=== PATIENT | female | born 1980 | race Caucasian/White ===

== ENCOUNTER 2019-05-22 16:16 | Emergency (ER) | payer OTHER, SELFPAY ==
[2019-05-22] MEDS: SODIUM CHLORIDE 0.9% IV 1,000 ML 1000 ML (16:38)
[2019-05-22 16:43] VITALS: BP 117/76; PULSE 84; RESP 19; TEMP 36.8; O2SAT 97
--- NOTE | 2019-05-22 16:43 | ED.GENADULT ---
HPI - General Adult General Chief complaint: Nausea/Vomiting/Diarrhea Stated complaint: throwing up, diarrhea History of Present Illness HPI narrative: Perri presented to the ED with 3 days of nausea, vomiting, diarrhea and fevers. She 1st had an upset stomach 3 days ago and has had several episodes of nonbilious nonbloody vomiting since. Two days ago she started having watery diarrhea. Two days ago she had a fever of up to 103. Her highest fever today was 101. This has also been accompanied by rhinorrhea and a cough. She denies any chronic medical conditions. no hematochezia, melena, or hematemesis. No chest pain or shortness of breath. Related Data Home Medications Medication Instructions Recorded Confirmed choriogonadotropin francoise,humrec 250 mcg SUBCUT ONCE 05/22/19 05/22/19 [Ovidrel] clomiphene citrate 100 mg PO DAILY 05/22/19 05/22/19 furosemide 20 mg PO DAILY 05/22/19 05/22/19 montelukast [Singulair] 10 mg PO DAILY 05/22/19 05/22/19 Allergies Allergy/AdvReac Type Severity Reaction Status Date / Time No Known Allergies Allergy Verified 05/22/19 17:05 Review of Systems Constitutional: Constitutional: Reports chills, Reports fatigue and Reports fever(s) Eyes: Eyes: Reports as per HPI and Reports no additional eye complaints ENT: Reports system reviewed and no additional complaints, except as documented Cardiovascular: Cardiovascular: Reports no additional cardiovascular complaints Respiratory: Respiratory: Reports cough, Denies dyspnea and Denies wheezing Gastrointestinal: Gastrointestinal: Reports as per HPI Genitourinary: Genitourinary: Reports no additional female genitourinary complaints Musculoskeletal: Musculoskeletal: Reports no additional musculoskeletal complaints Integumentary/Breasts: Skin/Breast: Reports system reviewed and no additional complaints, except as docu Neurologic: Reports system reviewed and no additional complaints, except as documented Psychiatric: Psychiatric: Reports no additional psychiatric complaints Exam Const: General: no acute distress and alert Orientation/consciousness: patient oriented x3 Limitations: No altered mental status HENMT: Other: Normocephalic, atraumatic. dry mucous membranes Eyes: Conjunctivae: conjunctivae normal Pupils: Equal, round and reactive pupils present Neck: Neck: normal visual inspection Chest: Chest palpation & inspection: normal inspection of the chest Resp: Effort & Inspection: normal respiratory effort, not labored, no retractions and not tachypneic Auscultation: clear to auscultation bilaterally Cardio: Rate: regular rate Rhythm: regular rhythm Heart sounds: no murmurs GI: GI Palp: Yes Soft to palpation and No Tenderness to palpation present (GI) : General: Yes no CVA tenderness Skin: General skin exam: normal color Rashes: no rashes Neuro: General: patient oriented x3 and moves all extremities Extrem: General: normal to inspection Psych: Mental Status: mental status grossly normal Course Course Emergency Course: Elle was seen and evaluated. ordered a L fluids and labs As well as for at mg of IV Zofran. Labs were significant for a white blood cell count of 18 mildly elevated creatinine of 1.04 and potassium is 3.0. She was given a 2nd L and given 40 mEq of potassium p.o. After this she was able to tolerate some fluids without vomiting. She was given return precautions and discharged. Vital Signs Vital signs: Vital Signs Temperature 36.8 C 05/22/19 16:43 Pulse Rate 84 05/22/19 16:43 Respiratory Rate 19 05/22/19 16:43 Blood Pressure 117/76 05/22/19 16:43 Pulse Oximetry 97 05/22/19 16:43 Temperature 36.8 C 05/22/19 16:43 Pulse Rate 84 05/22/19 16:43 Respiratory Rate 19 05/22/19 16:43 Blood Pressure 117/76 05/22/19 16:43 Pulse Oximetry 97 05/22/19 16:43 Medical Decision Making Vital Signs Vital Signs: Vital Signs Temperature 36.8 C
[2019-05-22 16:49] LABS: Basophils Absolute Auto 0.02 K/mm3 (0.00-0.10); Basophils Percent Auto 0.1 % (0.0-1.0); Eosinophils Absolute Auto 0.04 K/mm3 (0.02-0.50); Eosinophils Percent Auto 0.2 % (1.0-6.0); Hematocrit 40.3 % (35.0-49.0); Hemoglobin 13.6 g/dL (12.0-15.0); Immature Granulocyte Percent A 0.5 % (0.0-0.0); Lymphocytes Absolute Auto 1.63 K/mm3 (1.10-4.50); Lymphocytes Percent Auto 8.9 % (18.0-42.0); Mean Corpuscular HGB Conc 33.7 g/dL (32.0-36.0); Mean Corpuscular Hemoglobin 29.8 pg (27.0-31.0); Mean Corpuscular Volume 88.4 fL (78.0-102.0); Mean Platelet Volume 10.3 fl (9.2-11.8); Monocytes Percent Auto 6.5 % (2.0-11.0); Neutrophils Absolute Auto 15.4 K/mm3 (1.7-7.2); Neutrophils Percent Auto 83.8 % (50.0-70.0); Platelet Count Result 245 K/mm3 (150-420); Red Blood Count 4.56 M/mm3 (4.20-5.40); White Blood Count 18.3 K/mm3 (4.8-10.8)
[2019-05-22 16:54] LABS: Appearance Urine Sl Cloudy (Clear); Bilirubin Urine 1+ (Negative); Color Urine Yellow (Yellow); Glucose Urine UA Negative (Negative); Ketones Urine 1+ (Negative); Leukocyte Esterase Ur Trace LEU/UL (Negative); Nitrate Urine Negative (Negative); Protein Urine 1+ (Negative); Specific Grav Ur 1.015 (1.010-1.020)
[2019-05-22 17:00] LABS: Add Urine Microscopic? YES; Bacteria Urine 3+ /hpf; Blood Urine Trace-Intact (Negative); RBC Urine 0-2 /hpf (0-2); Squamous Epithelial Cell Urine Many /hpf (Few); WBC Urine 0-3 /hpf (0-3)
[2019-05-22] MEDS: ONDANSETRON INJ 4 MG/2 ML VIAL IV PUSH (17:00)
[2019-05-22 17:03] LABS: Pregnancy On Board Control Positive; Specific Gravity Ur 1.015 (1.010-1.035); Urine Pregnancy Test Negative
[2019-05-22 17:06] LABS: Alanine Aminotransferase 20 U/L (14-59); Albumin Level 3.5 g/dL (3.4-5.0); Alkaline Phosphatase 48 U/L (46-116); Aspartate Amino Transferase 13 U/L (15-37); Bilirubin,Total 0.3 mg/dL (0.00-1.00); Blood Urea Nitrogen 14 mg/dL (7-18); Carbon Dioxide 30 mmol/L (21-32); Chloride 99 mmol/L (98-108); Estimated Glomerular Filt Rate 60; Glucose 135 mg/dL (70-99); Osmolality Calculated 286 mOsm/kg (285-295); Sodium 137 mmol/L (136-145)
[2019-05-22 17:08] LABS: Lipase 98 U/L (73-393)
[2019-05-22 17:13] LABS: Influenza Control Valid (Valid)
[2019-05-22] MEDS: POTASSIUM CHLORIDE 20 MEQ PACKET (FOR LIQUID) 40 MEQ PO (17:27)
[2019-05-22] MEDS: SODIUM CHLORIDE 0.9% IV 500 ML 999 ML IV CONT (17:29)
[2019-05-22 18:14] VITALS: BP 150/86; O2SAT 99
== END 2019-05-22 18:20 | disposition home or self-care (01) ==
PROVIDERS: Emergency Provider Family Medicine; PCP Family Medicine
DX: K52.9 Noninfective gastroenteritis and colitis, unspecified (principal)
CPT/HCPCS: 36415; 80053; 81001; 81025; 83690; 85025; 87804; 96361; 96374; 99283; 99284; A9270; J2405; J7030; J7040

== ENCOUNTER 2019-10-25 19:02 | Emergency (ER) | payer OTHER, SELFPAY ==
[2019-10-25 19:23] VITALS: BP 107/78; PULSE 89; RESP 18; TEMP 36.2; O2SAT 100
--- NOTE | 2019-10-25 19:36 | ED.GENADULT ---
HPI - General Adult General Chief complaint: Nausea/Vomiting/Diarrhea Stated complaint: weakness,vomiting,fever. Source: patient and family Mode of arrival: ambulatory History of Present Illness HPI narrative: Elle is a 38 at 13 weeks gestation with no reported PMH that presented to the ED with nausea and vomiting. 2 nights ago she had a fish sandwich and started having nausea and vomiting an hour later. She has been having NBNB vomiting about every 45 minute since. She has had limited PO intake and a little diarrhea. She had a fever of 100.4 today with body aches. No CP, SOB, cough, or dysuria. Related Data Home Medications Medication Instructions Recorded Confirmed furosemide 20 mg PO DAILY 05/22/19 10/25/19 montelukast [Singulair] 10 mg PO DAILY 05/22/19 10/25/19 Allergies Allergy/AdvReac Type Severity Reaction Status Date / Time No Known Allergies Allergy Verified 05/24/19 14:08 Review of Systems Constitutional: Constitutional: Reports as per HPI Eyes: Eyes: Reports no additional eye complaints ENT: Reports system reviewed and no additional complaints, except as documented Cardiovascular: Cardiovascular: Reports no additional cardiovascular complaints Respiratory: Respiratory: Reports no additional respiratory complaints Gastrointestinal: Gastrointestinal: Reports as per HPI Genitourinary: Genitourinary: Reports no additional female genitourinary complaints Musculoskeletal: Musculoskeletal: Reports as per HPI Integumentary/Breasts: Skin/Breast: Reports system reviewed and no additional complaints, except as docu Neurologic: Reports system reviewed and no additional complaints, except as documented Psychiatric: Psychiatric: Reports no additional psychiatric complaints Endocrine: Endocrine: Reports no additional endocrine complaints Hematologic/Lymphatic: Hematologic/Lymphatic: Reports no additional hematologic/lymphatic complaints Allergic/Immunologic: Allergic/Immunologic: Reports no additional allergic/immunologic complaints [facility] Social History Social History Gender identity (if verbalized by the patient): Female Exam Const: General: no acute distress; No confusion Orientation/consciousness: patient oriented x3 Limitations: No altered mental status HENMT: Head: normal to inspection Other: dry mucous membranes Eyes: Conjunctivae: conjunctivae normal Pupils: Equal, round and reactive pupils present Neck: Neck: normal visual inspection Chest: Chest palpation & inspection: normal inspection of the chest Resp: Effort & Inspection: normal respiratory effort and not labored Auscultation: clear to auscultation bilaterally Cardio: Rate: tachycardic Rhythm: regular rhythm Heart sounds: no murmurs GI: GI Palp: Yes Soft to palpation, No Tenderness to palpation present (GI), No Guarding due to palpation present (GI) and No Rebound tenderness present Auscultation: normal bowel sounds : General: Yes no CVA tenderness Back/Spine/Pelvis: Back: no CVA tenderness Skin: General skin exam: normal color Rashes: no rashes Neuro: General: patient oriented x3 and moves all extremities Extrem: General: normal to inspection Psych: Mental Status: mental status grossly normal Course Course Emergency Course: Elle was seen and evaluated. Ordered labs as below, 1L NS and promethazine (zofran at home did not help). She was feeling better after these. However, she failed to hold down some juice and vomited again. She was then given benadryl and 500 more ml of normal saline. She again failed a PO challenge after this. Next she was given a dose of zofran IV after a discussion of the possible teratogenicity and she expressed understanding of the risks. After the zofran she was able to hold down some jello. As She could tolerate PO she felt safe to go home and sip on water. Vital Signs Vital signs: Vital Signs Temper
[2019-10-25] MEDS: PROMETHAZINE HCL 25 MG/ML AMPUL 12.5 MG IV PUSH (19:38)
[2019-10-25] MEDS: SODIUM CHLORIDE 0.9% IV 1,000 ML 999 ML IV CONT (19:39)
--- NOTE | 2019-10-25 19:51 | PC.NURSE ---
Pt made aware of need for urine sample, call light provided, pt verbalized understanding.
[2019-10-25 20:17] LABS: Basophils Absolute Auto 0.03 K/mm3 (0.00-0.10); Basophils Percent Auto 0.2 % (0.0-1.0); Hematocrit 39.1 % (35.0-49.0); Immature Granulocyte Absolute 0.11 K/mm3 (0.00-0.00); Immature Granulocyte Percent A 0.7 % (0.0-0.0); Lymphocytes Absolute Auto 1.24 K/mm3 (1.10-4.50); Lymphocytes Percent Auto 7.5 % (18.0-42.0); Mean Corpuscular HGB Conc 33.2 g/dL (32.0-36.0); Mean Corpuscular Hemoglobin 29.5 pg (27.0-31.0); Mean Corpuscular Volume 88.7 fL (78.0-102.0); Mean Platelet Volume 10.7 fl (9.2-11.8); Monocytes Absolute Auto 0.86 K/mm3 (0.10-0.90); Monocytes Percent Auto 5.2 % (2.0-11.0); Neutrophils Absolute Auto 14.2 K/mm3 (1.7-7.2); Neutrophils Percent Auto 86.4 % (50.0-70.0); Platelet Count Result 270 K/mm3 (150-420); Red Blood Count 4.41 M/mm3 (4.20-5.40); Red Cell Distribution Width 14.2 % (11.6-14.4); White Blood Count 16.5 K/mm3 (4.8-10.8)
--- NOTE | 2019-10-25 20:25 | PC.NURSE ---
Pt attempted PO challenge per MD, soon after eating food pt became nauseated and began vomiting. Cool towel provided. MD made aware, awaiting further orders.
[2019-10-25 20:26] LABS: Alanine Aminotransferase 19 U/L (14-59); Albumin Level 3.4 g/dL (3.4-5.0); Alkaline Phosphatase 41 U/L (46-116); Anion Gap 7 mmol/L (8-16); Aspartate Amino Transferase 12 U/L (15-37); Bilirubin,Total 0.4 mg/dL (0.00-1.00); Blood Urea Nitrogen 13 mg/dL (7-18); Calcium 8.9 mg/dL (8.5-10.1); Carbon Dioxide 31 mmol/L (21-32); Chloride 100 mmol/L (98-108); Estimated CRCL calculation 125 ml/min; Estimated Glomerular Filt Rate > 60; Glucose 107 mg/dL (70-99); Lipase 71 U/L (73-393); Osmolality Calculated 286 mOsm/kg (285-295); Potassium 3.2 mmol/L (3.5-5.1); Sodium 138 mmol/L (136-145); Total Protein 7.4 g/dL (6.4-8.2)
[2019-10-25] MEDS: SODIUM CHLORIDE 0.9% IV 500 ML 999 ML IV CONT (20:32)
[2019-10-25] MEDS: diphenhydrAMINE HCl INJ 50 MG/ML VIAL IV PUSH (20:32)
--- NOTE | 2019-10-25 21:16 | PC.NURSE ---
pt ambulated to bathroom with steady gait to provided urine sample, returned to stretcher in NAD. Pt reports sudden onset of nausea and had an episode of emesis. MD made aware, awaiting further orders.
[2019-10-25 21:17] LABS: Appearance Urine Clear (Clear); Bilirubin Urine 1+ (Negative); Color Urine Yellow (Yellow); Glucose Urine UA Negative (Negative); Ketones Urine 3+ (Negative); Leukocyte Esterase Ur Negative (Negative); Nitrate Urine Negative (Negative); Protein Urine 1+ (Negative); pH Urine 7.5 (5.0-8.0)
[2019-10-25 21:21] LABS: Add Urine Microscopic? YES; Bacteria Urine 1+ /hpf; Blood Urine Trace-Intact (Negative); RBC Urine None seen /hpf (0-2); Squamous Epithelial Cell Urine Moderate /hpf (Few); WBC Urine None seen /hpf (0-3)
[2019-10-25] MEDS: ONDANSETRON INJ 4 MG/2 ML VIAL IV PUSH (21:32)
[2019-10-25 22:36] VITALS: BP 155/89; PULSE 97; RESP 90; O2SAT 97
== END 2019-10-25 22:36 | disposition home or self-care (01) ==
PROVIDERS: Emergency Provider Family Medicine; PCP Family Medicine
DX: K52.9 Noninfective gastroenteritis and colitis, unspecified (principal)
CPT/HCPCS: 36415; 80053; 81001; 83690; 85025; 96361; 96374; 96375; 99283; 99284; J1200; J2405; J2550; J7030; J7040

== ENCOUNTER 2019-11-01 10:04 | Emergency (ER) | payer OTHER, SELFPAY ==
[2019-11-01 10:30] VITALS: BP 123/73; PULSE 70; RESP 18; TEMP 36.6; O2SAT 99
[2019-11-01] MEDS: ONDANSETRON INJ 4 MG/2 ML VIAL IV PUSH ×2 (11:15→12:28)
[2019-11-01 11:37] LABS: Basophils Absolute Auto 0.02 K/mm3 (0.00-0.10); Basophils Percent Auto 0.2 % (0.0-1.0); Eosinophils Absolute Auto 0.03 K/mm3 (0.02-0.50); Eosinophils Percent Auto 0.3 % (1.0-6.0); Hemoglobin 12.3 g/dL (12.0-15.0); Immature Granulocyte Absolute 0.08 K/mm3 (0.00-0.00); Immature Granulocyte Percent A 0.7 % (0.0-0.0); Lymphocytes Absolute Auto 1.15 K/mm3 (1.10-4.50); Lymphocytes Percent Auto 9.8 % (18.0-42.0); Mean Corpuscular HGB Conc 33.2 g/dL (32.0-36.0); Mean Corpuscular Hemoglobin 29.5 pg (27.0-31.0); Mean Corpuscular Volume 88.7 fL (78.0-102.0); Mean Platelet Volume 10.7 fl (9.2-11.8); Monocytes Absolute Auto 0.51 K/mm3 (0.10-0.90); Monocytes Percent Auto 4.3 % (2.0-11.0); Neutrophils Percent Auto 84.7 % (50.0-70.0); Platelet Count Result 179 K/mm3 (150-420); Red Blood Count 4.17 M/mm3 (4.20-5.40); Red Cell Distribution Width 14.1 % (11.6-14.4); White Blood Count 11.8 K/mm3 (4.8-10.8)
[2019-11-01] MEDS: SODIUM CHLORIDE 0.9% IV 2,000 ML 999 ML IV CONT (11:54)
[2019-11-01 11:57] LABS: Glucose Point of Care 106 (65-105)
[2019-11-01 12:15] LABS: Alanine Aminotransferase 17 U/L (14-59); Albumin Level 2.9 g/dL (3.4-5.0); Alkaline Phosphatase 37 U/L (46-116); Anion Gap 5 mmol/L (8-16); Aspartate Amino Transferase 10 U/L (15-37); Bilirubin,Total 0.3 mg/dL (0.00-1.00); Blood Urea Nitrogen 9 mg/dL (7-18); Calcium 8.5 mg/dL (8.5-10.1); Carbon Dioxide 28 mmol/L (21-32); Chloride 103 mmol/L (98-108); Estimated CRCL calculation 106 ml/min; Estimated Glomerular Filt Rate > 60; Glucose 99 mg/dL (70-99); Lipase 59 U/L (73-393); Osmolality Calculated 280 mOsm/kg (285-295); Potassium 3.9 mmol/L (3.5-5.1); Sodium 136 mmol/L (136-145); Total Protein 6.3 g/dL (6.4-8.2)
[2019-11-01 12:17] VITALS: BP 165/91; PULSE 66
[2019-11-01 14:30] VITALS: BP 130/64; PULSE 81; RESP 16; TEMP 36.6; O2SAT 98
[2019-11-01 14:31] LABS: Bilirubin Urine Negative (Negative); Blood Urine Negative (Negative); Color Urine Yellow (Yellow); Glucose Urine UA Negative (Negative); Ketones Urine Negative (Negative); Leukocyte Esterase Ur Negative (Negative); Nitrate Urine Negative (Negative); Protein Urine Negative (Negative); Urobilinogen Urine 0.2 mg/dL (0.2-1.0)
[2019-11-01 14:33] LABS: Add Urine Microscopic? NO; Appearance Urine Clear (Clear)
--- NOTE | 2019-11-01 14:50 | ED.NAVMDI ---
HPI - Nausea/Vomiting/Diarrhea General Chief complaint: Nausea/Vomiting/Diarrhea Stated complaint: Vomiting/ Source: patient and family Mode of arrival: ambulatory Limitations: no limitations History of Present Illness HPI Narrative: Patient is 13 weeks she started having some vomiting approximately last week. She was already seen in the ER last week once for this same issue. She states she was not kept anything down in 0 week. Patient is alert and oriented and in no distress. MD elicited complaint: nausea and vomiting Pertinent past history: anorexia Onset (ago): day(s) Associated nausea: Yes Associated abdominal pain: No Exacerbating factors: none Relieving factors: none Associated symptoms: loss of appetite, nausea/vomiting and decreased urine output Related Data Home Medications Medication Instructions Recorded Confirmed furosemide 20 mg PO DAILY 05/22/19 10/25/19 montelukast [Singulair] 10 mg PO DAILY 05/22/19 10/25/19 Allergies Allergy/AdvReac Type Severity Reaction Status Date / Time No Known Allergies Allergy Verified 05/24/19 14:08 Review of Systems Constitutional: Constitutional: Reports no additional constitutional complaints Eyes: Eyes: Reports no additional eye complaints ENT: Reports system reviewed and no additional complaints, except as documented Cardiovascular: Cardiovascular: Reports no additional cardiovascular complaints Respiratory: Respiratory: Reports no additional respiratory complaints Gastrointestinal: Gastrointestinal: Reports no additional gastrointestinal complaints Genitourinary: Genitourinary: Reports no additional female genitourinary complaints Musculoskeletal: Musculoskeletal: Reports no additional musculoskeletal complaints Integumentary/Breasts: Skin/Breast: Reports system reviewed and no additional complaints, except as docu Neurologic: Reports system reviewed and no additional complaints, except as documented Psychiatric: Psychiatric: Reports no additional psychiatric complaints Endocrine: Endocrine: Reports no additional endocrine complaints Hematologic/Lymphatic: Hematologic/Lymphatic: Reports no additional hematologic/lymphatic complaints Allergic/Immunologic: Allergic/Immunologic: Reports no additional allergic/immunologic complaints [facility]END[facility] S[facility] TO [facility] Social History Social History (Updated 11/01/19 @ 14:54 by Elissa Montoya MD) Alcohol use details: not currently Substance use: unknown Living arrangements: with family Gender identity (if verbalized by the patient): Female Exam Const: General: no acute distress and alert Orientation/consciousness: patient oriented x3 HENMT: Head: normal to inspection Eyes: Pupils: Equal, round and reactive pupils present Chest: Chest palpation & inspection: normal inspection of the chest Resp: Effort & Inspection: normal respiratory effort Auscultation: clear to auscultation bilaterally Cardio: Rate: regular rate Rhythm: regular rhythm GI: Inspection: non-distended GI Palp: Yes Soft to palpation and No Tenderness to palpation present (GI) Auscultation: normal bowel sounds Skin: General skin exam: normal color Neuro: General: patient oriented x3, moves all extremities and no focal motor deficits Speech: normal speech Extrem: General: normal to inspection Psych: Mental Status: mental status grossly normal Course Vital Signs Vital signs: Vital Signs Temperature 36.6 C 11/01/19 10:30 Pulse Rate 70 11/01/19 10:30 Respiratory Rate 18 11/01/19 10:30 Blood Pressure 123/73 11/01/19 10:30 Pulse Oximetry 99 11/01/19 10:30 Temperature 36.6 C 11/01/19 10:30 Pulse Rate 66 11/01/19 12:17 Respiratory Rate 18 11/01/19 10:30 Blood Pressure 165/91 H 11/01/19 12:17 Pulse Oximetry 99 11/01/19 10:30 MDM - Nausea/Vomiting/Diarrhea Lab Data Result diagrams: 11/01/19 11:32 11/01/19 11:32 Labs: Lab Results 10/07
--- NOTE | 2019-11-01 14:56 | PC.NURSE ---
2nd normal saline 0.9% IV infused and stopped at 1430. pt denies nausea.
== END 2019-11-01 15:02 | disposition home or self-care (01) ==
PROVIDERS: Emergency Provider Emergency Medicine; PCP Family Medicine
DX: O21.0 Mild hyperemesis gravidarum (principal)
CPT/HCPCS: 36415; 80053; 81003; 83690; 84702; 85025; 96361; 96374; 96376; 99283; 99284; J2405; J7030

== ENCOUNTER 2019-12-05 16:03 | Emergency (ER) | payer OTHER, SELFPAY ==
[2019-12-05 16:10] VITALS: BP 120/58; PULSE 78; RESP 20; TEMP 37.1; O2SAT 99
[2019-12-05] MEDS: SODIUM CHLORIDE 0.9% IV 1,000 ML 999 ML (16:28)
[2019-12-05] MEDS: ONDANSETRON INJ 4 MG/2 ML VIAL IV PUSH (16:50)
--- NOTE | 2019-12-05 16:52 | ED.NAVMDI ---
HPI - Nausea/Vomiting/Diarrhea General Source: patient Mode of arrival: ambulatory Limitations: no limitations History of Present Illness HPI Narrative: Pt is 38 yo female who presents with sxs from hyperemesis. She states she has had problems with this for weeks. Her OB is aware. She was at [facility] yesterday and had her bloodwork done and was given IVF. MD elicited complaint: nausea and vomiting Pertinent past history: other () Description of vomiting: food contents Description of diarrhea: watery Associated nausea: Yes Associated abdominal pain: No Location of pain: none Exacerbating factors: eating (or drinking fluid) Associated symptoms: denies other symptoms and nausea/vomiting (hungry and thirsty, just not tolerating foods) Related Data Home Medications Medication Instructions Recorded Confirmed furosemide 20 mg PO DAILY 05/22/19 12/05/19 montelukast [Singulair] 10 mg PO DAILY 05/22/19 12/05/19 ondansetron 8 mg PO Q8H 12/05/19 12/05/19 Allergies Allergy/AdvReac Type Severity Reaction Status Date / Time No Known Allergies Allergy Verified 05/24/19 14:08 Review of Systems Review of Systems: All systems reviewed & are unremarkable except as noted in HPI and below PMFSH Past Medical History Medical History (Updated 12/05/19 @ 17:03 by Elissa Montoya MD) Back problem Social History Social History (Updated 12/05/19 @ 17:00 by Elissa Montoya MD) Smoking status: Former smoker Alcohol intake: never Substance use: current Other substance usage details: MEDICAL MARIJUANA Gender identity (if verbalized by the patient): Female Exam Narrative: Exam Narrative: STRONG odor of MJ Const: General: no acute distress and alert Orientation/consciousness: patient oriented x3 HENMT: Head: normal to inspection Other: APPEARS WELL HYDRATED Neck: Neck: normal visual inspection Chest: Chest palpation & inspection: normal inspection of the chest Resp: Effort & Inspection: normal respiratory effort Auscultation: clear to auscultation bilaterally Cardio: Rate: regular rate Rhythm: regular rhythm GI: GI Palp: Yes Soft to palpation, No Tenderness to palpation present (GI), No Guarding due to palpation present (GI) and No Rigid due to palpation Back/Spine/Pelvis: Back: no CVA tenderness Skin: General skin exam: normal color Neuro: General: patient oriented x3 and moves all extremities Extrem: General: normal to inspection Psych: Mental Status: mental status grossly normal Affect: normal affect Attitude: cooperative Course Reevaluation(s) Reevaluation #1: pt states she feels much better and is ready to go home and eat some uzbek fries Vital Signs Vital signs: Vital Signs Temperature 37.1 C 12/05/19 16:10 Pulse Rate 78 12/05/19 16:10 Respiratory Rate 20 12/05/19 16:10 Blood Pressure 120/58 L 12/05/19 16:10 Pulse Oximetry 99 12/05/19 16:10 Temperature 37.1 C 12/05/19 16:10 Pulse Rate 78 12/05/19 16:10 Respiratory Rate 16 12/05/19 18:18 Blood Pressure 120/58 L 12/05/19 16:10 Pulse Oximetry 99 12/05/19 16:10 Discharge Plan Discharge Clinical Impression: Hyperemesis arising during , First trimester Patient Disposition: Home, Self-Care Condition: Stable Instructions: Hyperemesis Gravidarum (ED) Prescriptions: No Action montelukast [Singulair] 10 mg Tablet 10 mg PO DAILY RF: 0 furosemide 20 mg Tablet 20 mg PO DAILY RF: 0 promethazine 12.5 mg tablet 12.5 mg PO TID PRN (Reason: nausea and vomiting) Qty: 20 RF: 0 fluticasone propionate [Flonase Allergy Relief] 50 mcg/actuation spray,suspension 1 spray NASAL BID Qty: 18.2 RF: 0 ondansetron 4 mg tablet,disintegrating 8 mg PO Q8H RF: 0 Follow-up/Referrals: Carlos,Johanna Hylton MD [Primary Care Provider] - Time of Disposition: 17:03 Discharge Date/Time: 12/05/19 18:19
[2019-12-05] MEDS: SODIUM CHLORIDE 0.9% IV 1,000 ML 2000 ML IV CONT (17:31)
[2019-12-05 18:18] VITALS: RESP 16
== END 2019-12-05 18:19 | disposition home or self-care (01) ==
PROVIDERS: Emergency Provider Emergency Medicine; PCP Family Medicine
DX: R11.10 Vomiting, unspecified (principal); Z34.91 Encounter for supervision of normal pregnancy, unspecified, first trimester
CPT/HCPCS: 96361; 96374; 99283; 99284; J2405; J7030

== ENCOUNTER 2019-12-13 20:57 | Emergency (ER) | payer OTHER, SELFPAY ==
[2019-12-13 21:32] VITALS: BP 166/102; PULSE 78; RESP 20; TEMP 36.8; O2SAT 98
--- NOTE | 2019-12-13 21:34 | ED.NAVMDI ---
HPI - Nausea/Vomiting/Diarrhea General Chief complaint: Nausea/Vomiting/Diarrhea Stated complaint: hyperemesis revotem Time Seen by Provider: 12/13/19 21:34 Source: patient and family Mode of arrival: ambulatory Limitations: no limitations History of Present Illness HPI Narrative: 39-year-old woman in her 20th week of comes in today complaining of vomiting and weakness. Patient states she has been able to keep down any fluids for the last 48 hours. She states that she has had nausea and vomiting through the entirety of her so far. She gets some relief with odt Zofran and with Phenergan but she is having difficulty keeping the latter down as of late. She has been going to [facility] frequently for IV fluid infusions. She denies vaginal bleeding, vaginal discharge, abdominal pain, dysuria, hematuria, diarrhea, rash and headache. MD elicited complaint: nausea and vomiting Onset (ago): week(s) Description of vomiting: food contents and watery Associated nausea: Yes Exacerbating factors: eating Relieving factors: medication and hot shower/bath Context: marijuana use Treatment prior to arrival: other ( Promethazine and ondansetron) Related Data Home Medications Medication Instructions Recorded Confirmed ondansetron 8 mg PO Q8H 12/05/19 12/13/19 Allergies Allergy/AdvReac Type Severity Reaction Status Date / Time No Known Allergies Allergy Verified 12/13/19 21:36 Review of Systems Constitutional: Constitutional: Denies chills, Denies fever(s) and Reports weakness Eyes: Eyes: Denies change in vision and Denies photophobia ENT: Denies dysphagia, Denies nasal congestion and Denies sore throat Cardiovascular: Cardiovascular: Denies chest pain and Denies radiating jaw, neck or arm pain Respiratory: Respiratory: Denies cough and Denies dyspnea Gastrointestinal: Gastrointestinal: Reports as per HPI, Denies abdominal pain, Reports constipation, Denies diarrhea, Reports nausea and Reports vomiting Genitourinary: Genitourinary: Denies abnormal vaginal bleeding, Denies hematuria, Denies nocturia, Denies dysuria and Denies vaginal discharge Musculoskeletal: Musculoskeletal: Denies back pain, Denies arthralgias and Denies joint swelling Integumentary/Breasts: Skin/Breast: Denies pruritus, Denies erythema and Denies rash Neurologic: Denies vertigo, Denies dizziness and Denies syncope Hematologic/Lymphatic: Hematologic/Lymphatic: Denies easy bleeding and Denies easy bruising Allergic/Immunologic: Allergic/Immunologic: Denies lip swelling and Denies tongue swelling PMFSH Past Medical History Medical History Back problem Social History Social History Smoking status: Former smoker Alcohol intake: never Substance use: current Other substance usage details: MEDICAL MARIJUANA Gender identity (if verbalized by the patient): Female Exam Const: General: ill appearing ( mildly); No diaphoretic Nutritional Appearance: well nourished Other: mild acute distress HENMT: Mouth: Yes moist mucous membranes Throat: posterior oropharynx normal Eyes: Cornea: corneas normal Pupils: Equal, round and reactive pupils present EOM: EOMs intact bilaterally Resp: Effort & Inspection: normal respiratory effort and not labored Auscultation: clear to auscultation bilaterally, no rales, no rhonchi and no wheezes Cardio: Rate: regular rate Rhythm: regular rhythm Heart sounds: no murmurs GI: GI Palp: Yes Soft to palpation, No Tenderness to palpation present (GI), No Guarding due to palpation present (GI) and No Palpable mass present Skin: General skin exam: no jaundice and pallor Rashes: no rashes Neuro: General: patient oriented x3, moves all extremities, no focal motor deficits and CN's II-XI intact bilaterally Speech: normal speech Gait exam (Neuro): Normal gait present Extrem
[2019-12-13 21:57] LABS: Anion Gap 9 mmol/L (8-16); Blood Urea Nitrogen 6 mg/dL (7-18); Calcium 8.5 mg/dL (8.5-10.1); Carbon Dioxide 25 mmol/L (21-32); Chloride 102 mmol/L (98-108); Estimated CRCL calculation 154 ml/min; Estimated Glomerular Filt Rate > 60; Glucose 104 mg/dL (70-99); Osmolality Calculated 279 mOsm/kg (285-295); Potassium 4.1 mmol/L (3.5-5.1); Sodium 136 mmol/L (136-145)
[2019-12-13] MEDS: LACTATED RINGERS 1,000 ML 999 ML IV CONT ×2 (22:02→22:39)
[2019-12-13] MEDS: PROMETHAZINE HCL 25 MG/ML AMPUL IM (22:11)
[2019-12-13] MEDS: ONDANSETRON INJ 4 MG/2 ML VIAL 8 MG IV PUSH (22:11)
[2019-12-13 23:10] VITALS: BP 106/58; PULSE 75; RESP 16; O2SAT 97
[2019-12-13 23:55] VITALS: BP 106/58; PULSE 74; RESP 20; O2SAT 98
== END 2019-12-13 23:58 | disposition home or self-care (01) ==
PROVIDERS: Emergency Provider Emergency Medicine; PCP Family Medicine
DX: O21.0 Mild hyperemesis gravidarum (principal)
CPT/HCPCS: 36415; 80048; 96361; 96372; 96374; 99283; 99284; J2405; J2550; J7120

== ENCOUNTER 2020-01-13 09:51 | Outpatient (CLI) | payer OTHER, SELFPAY ==
--- NOTE | ~2020-01-13 | US_ITS ---
EXAMINATION: US OB /maternal detail DATE: 01/13/2020 11:47 INDICATION: Encounter for supervision normal in second trimester. TECHNIQUE: Real-time ultrasound of the pelvis was performed. COMPARISON: None. FINDINGS: There is a single living fetus in variable presentation. The placenta is posterior and covers the in ternal cervical os. heart rate is 152 beats per minute (bpm). The amniotic fluid volume is subj ectively normal. The following biometric data were obtained: Biparietal diameter (BPD): 5.4 cm; head circumference (HC): 20.3 cm; abdominal circumference (AC): 18 .2 cm; femur length (FL): 3.8 cm. These measurements are concordant. Estimated weight is 516 g +/- 77 g, which correlates with 67th percentile when 05/17/20 is used as estimated date of delivery. As single measurements, these parameters are each equal to the following estimated gestational ages: BPD: 22 weeks 2 days. HC: 22 weeks 3 days. AC: 23 weeks 0 days. FL: 22 weeks 1 days. estimated gestational age based solely on measurements from this exam is 22 weeks 3 days +/- 1 weeks 4 days. The cerebral ventricles, cerebellum, cisterna magna, nuchal fold, and visualized portions of the spin e are normal. The heart is normal. The diaphragm, stomach, kidneys, and bladder are normal. There are two umbilical arteries to yield a 3-vessel cord. The cord insertion is normal. IMPRESSION: 1. Single living fetus in vertex presentation. 2. Estimated weight is 516 g +/- 77 g, which correlates with 67th percentile when 05/17/20 is u sed as estimated date of delivery. 3. Normal anatomic survey. 4. Placenta previa. Follow-up ultrasound in the third trimester is recommended to confirm resolution. Reviewed, dictated and finalized at location A. [employer] IMPRESSION: 1. Single living fetus in vertex presentation. 2. Estimated weight is 516 g +/- 77 g, which correlates with 67th percen tile when 05/17/20 is used as estimated date of delivery. 3. Normal anatomic survey. 4. Placenta previa. Follow-up ultrasound in the third trimester is recommended to confirm resolution.
== END 2020-01-13 09:52 | disposition home or self-care (01) ==
PROVIDERS: PCP Family Medicine; Visit Provider Family Medicine
DX: O44.02 Complete placenta previa NOS or without hemorrhage, second trimester (principal); Z3A.22 22 weeks gestation of pregnancy
CPT/HCPCS: 76805

== ENCOUNTER 2020-01-25 11:38 | Emergency (ER) | payer OTHER, SELFPAY ==
[2020-01-25 12:11] VITALS: BP 122/74; PULSE 84; RESP 20; TEMP 36.3; O2SAT 99
--- NOTE | 2020-01-25 12:14 | ED.NAVMDI ---
HPI - Nausea/Vomiting/Diarrhea General Chief complaint: Nausea/Vomiting/Diarrhea Stated complaint: Can keep anything down Source: patient Mode of arrival: ambulatory History of Present Illness HPI Narrative: this is a 39-year-old female that presents with some nausea with few episodes of vomiting has some Zofran at home oral disintegrating tablets that she says she just can't keep down. Patient has a history of hyperemesis gravidarum and sees her Ob and according to patient has been prescribed marijuana that according her helps with her emesis. Currently there is no fever chills no abdominal pain no shortness of breath no chest pain no dysuria no flank pain. MD elicited complaint: nausea Onset (ago): day(s) Location of pain: none Related Data Home Medications Medication Instructions Recorded Confirmed ondansetron 8 mg PO Q8H 12/05/19 12/13/19 Allergies Allergy/AdvReac Type Severity Reaction Status Date / Time No Known Allergies Allergy Verified 12/13/19 21:36 Review of Systems Review of Systems: All systems reviewed & are unremarkable except as noted in HPI and below PMFSH Past Medical History Medical History Back problem Hyperemesis gravidarum Social History Social History Smoking status: Former smoker Alcohol intake: never Substance use: current Other substance usage details: MEDICAL MARIJUANA Gender identity (if verbalized by the patient): Female Exam Const: General: no acute distress Orientation/consciousness: patient oriented x3 HENMT: Head: normal to inspection and contusion Eyes: Cornea: corneas normal Pupils: Equal, round and reactive pupils present EOM: EOMs intact bilaterally Neck: Neck: normal visual inspection Resp: Effort & Inspection: normal respiratory effort Cardio: Rate: regular rate Rhythm: regular rhythm GI: GI Palp: Yes Soft to palpation Urinary Catheter: Urinary Catheter: patent and draining Skin: General skin exam: normal color Rashes: no rashes Neuro: General: patient oriented x3, moves all extremities and no meningeal signs Extrem: General: normal to inspection and no pedal edema Psych: Mental Status: mental status grossly normal Affect: normal affect Course Course Emergency Course: reassessment of patient, nausea vomiting has improved and stable for discharge with recommendation of follow-up with her primary care /OBGYN and discuss cannabis use as it may cause hyperemesis cannabinoid syndrome Critical Care Time Critical Care Time Critical Care Time: No Discharge Plan Discharge Clinical Impression: Hyperemesis gravidarum Patient Disposition: Home, Self-Care Condition: Stable Instructions: Antibiotic Form, Acute Nausea and Vomiting (ED), Hyperemesis Gravidarum (ED) Additional Instructions: take medicine as prescribed and follow-up with OBGYN for further evaluation and treatment. Prescriptions: No Action promethazine 12.5 mg tablet 12.5 mg PO TID PRN (Reason: nausea and vomiting) Qty: 20 RF: 0 fluticasone propionate [Flonase Allergy Relief] 50 mcg/actuation spray,suspension 1 spray NASAL BID Qty: 18.2 RF: 0 ondansetron 4 mg tablet,disintegrating 8 mg PO Q8H RF: 0 Follow-up/Referrals: Carlos,Johanna Hylton MD [Primary Care Provider] - Time of Disposition: 12:18
[2020-01-25] MEDS: PROMETHAZINE HCL 25 MG/ML AMPUL 12.5 MG IV PUSH (12:30)
[2020-01-25] MEDS: ONDANSETRON INJ 4 MG/2 ML VIAL IV PUSH (12:30)
[2020-01-25 13:28] VITALS: PULSE 105; RESP 20; O2SAT 98
== END 2020-01-25 13:30 | disposition home or self-care (01) ==
PROVIDERS: Emergency Provider Emergency Medicine; PCP Family Medicine
DX: O21.0 Mild hyperemesis gravidarum (principal)
CPT/HCPCS: 96374; 96375; 99283; 99284; J2405; J2550

== ENCOUNTER 2020-03-03 09:24 | Observation (INO) | payer OTHER, SELFPAY ==
[2020-03-03] VITALS (34 sets, daily range): BP systolic 103–131; BP diastolic 69–92; PULSE 92–127; TEMP 36.5; O2SAT 94–99; BMI 32.3
--- NOTE | ~2020-03-03 | US_ITS ---
EXAMINATION: US OB limited EXAM DATE: 03/03/2020 10:19 INDICATION: Vaginal bleeding/ check placenta at bedside. 3rd trimester. TECHNIQUE: Pelvic obstetrical transabdominal sonogram was performed by a technologist. There are mu ltiple grayscale and Doppler images available for interpretation. Comparison is made to prior examina tion from 01/13/2020. FINDINGS: There is a single fetus identified in vertex presentation with a heart rate of 154 beats pe r minute. The placenta is located in the previa position. There is no sonographic evidence of retrop lacental hemorrhage identified. IMPRESSION: 1. Vertex presentation, heart rate 1 54 bpm. 2. Placental previa. No sonographic evidence of retroplacental hemorrhage. Reviewed, dictated and finalized at location A. ICE SUPERVISOR
--- NOTE | 2020-03-03 09:21 | PC.NURSE ---
Pt taken directly to OB. Report called to
--- NOTE | 2020-03-03 09:24 | OBADM ---
This patient, Elle Rayo, admitted to the OB room OB Post 117 for observation. Patient/family oriented to hospital policies and general routines including ID bracelet, bed and alarms, visiting hours, pain management, procedures, bathroom and other care routines, personal items, smoking policy, room service/diet, and visiting hours. Patient/Family are encouraged to report perceived risks to care and to ask questions if they do not understand what they are told or what they should do.
[2020-03-03] MEDS: LACTATED RINGERS 1,000 ML 999 ML IV CONT (09:45)
[2020-03-03 09:56] LABS: Basophils Percent Auto 0.1 % (0.2-1.2); Eosinophils Percent Auto 0.1 % (0-4.4); Hematocrit 37.7 % (37.0-47.0); Hemoglobin 12.9 g/dL (12.0-15.0); Immature Granulocyte Absolute 0.26 K/mm3 (0.00-0.031); Immature Granulocyte Percent A 1.3 % (0-0.5); Lymphocytes Absolute Auto 2.32 K/mm3 (0.9-3.2); Lymphocytes Percent Auto 11.4 % (18.3-44.2); Mean Corpuscular HGB Conc 34.2 g/dl (32-36); Mean Corpuscular Hemoglobin 30.3 pg (26-34); Mean Corpuscular Volume 88.5 fl (80-100); Mean Platelet Volume 9.9 fl (7.4-10.4); Monocytes Absolute Auto 1.3 K/mm3 (0.1-0.6); Monocytes Percent Auto 6.5 % (2.6-8.5); Neutrophils Absolute Auto 16.5 K/mm3 (1.3-6.7); Neutrophils Percent Auto 80.6 % (45.5-73.1); Platelet Count Result 294 k/mm3 (150-375); Red Blood Count 4.26 M/mm3 (4.2-5.4); Red Cell Distribution Width 13.7 % (11.5-14.5); White Blood Count 20.4 K/mm3 (4.5-10.0)
--- NOTE | 2020-03-03 10:25 | PM.IMHP ---
H&P: HPI History of Present Illness Date/Time: 03/03/20 10:25 Chief Complaint: vaginal bleeding Narrative: Elle Rayo is a 39 year old female at 29w2d who presents with acute onset vaginal bleeding in the setting of known placenta previa. Pt states she had a large gush of fluid around 0830. She looked and noticed it was bright red blood. Pt states she immediately came to the hospital. She has had several other large gushes of fluid. She had blood down her legs on arrival. The patient denies any contractions or abdominal pain. She denies any intercourse in the last 48 hrs. Her was complicated by hyperemesis gravidarum. Review of Systems Review of Systems: All systems reviewed & are unremarkable except as noted in HPI and below PMFSH Past Medical History Medical History Back problem Hyperemesis gravidarum Social History Social History Smoking status: Former smoker Alcohol intake: never Substance use: current Other substance usage details: MEDICAL MARIJUANA Gender identity (if verbalized by the patient): Female Meds Home Medications and Allergies Home Medications Medication Instructions Recorded Confirmed Type fluticasone propionate [Flonase 1 spray NASAL BID #18.2 ml NS 11/01/19 01/25/20 Rx Allergy Relief] ondansetron 8 mg PO Q8H 12/05/19 01/25/20 History doxylamine-pyridoxine (vit B6) 2 tablet PO BID 01/25/20 01/25/20 History promethazine 25 mg PO TID PRN 01/25/20 01/25/20 History Allergies Allergy/AdvReac Type Severity Reaction Status Date / Time No Known Allergies Allergy Verified 01/25/20 12:19 Vital Signs Vital Signs - 24 hr 03/03/20 09:37 03/03/20 09:44 03/03/20 09:45 Pulse Rate 120 H Blood Pressure 105/81 Pulse Oximetry 97 96 03/03/20 09:49 03/03/20 09:54 03/03/20 09:59 Pulse Rate Blood Pressure Pulse Oximetry 96 96 96 03/03/20 10:00 03/03/20 10:04 03/03/20 10:09 Pulse Rate 121 H Blood Pressure 103/78 Pulse Oximetry 95 97 03/03/20 10:14 03/03/20 10:15 03/03/20 10:19 Pulse Rate 115 H Blood Pressure 105/69 Pulse Oximetry 97 94 03/03/20 10:24 Pulse Rate Blood Pressure Pulse Oximetry 97 Exam Const: General: cooperative, healthy appearing and comfortable Orientation/consciousness: patient oriented x3 Limitations: no limitations Eyes: General: appearance normal, both eyes and all related structures Neck: Neck: normal visual inspection Resp: Effort & Inspection: normal respiratory effort Auscultation: clear to auscultation bilaterally Cardio: Jugular venous distension: no JVD Rate: tachycardic GI: Inspection: other (Gravid) GI Palp: No abdominal tenderness, Yes Soft to palpation, No Tenderness to palpation present (GI), No Guarding due to palpation present (GI) and No Hepatomegaly present Percussion: Yes normal to percussion Auscultation: normal bowel sounds : Speculum Exam - Vagina: vaginal bleeding Speculum Exam - Cervix: normal appearance of the cervix and Cervical os closed OB/external & speculum: Deferred OB/external & speculum exam Manual OB Exam: Deferred manual OB exam Skin: General skin exam: normal color and no rashes or lesions noted Neuro: General: patient oriented x3 Psych: Appearance: grossly normal Mental Status: mental status grossly normal H&P: Results Labs Labs: Short CBC 03/03/20 Range/Units 09:48 WBC 20.4 H (4.5-10.0) K/mm3 Hgb 12.9 (12.0-15.0) g/dL Hct 37.7 (37.0-47.0) % Plt Count 294 (150-375) k/mm3 Assessment and Plan Assessment and plan (1) Supervision of high risk , unspecified, third trimester: Code(s): O09.93 - Supervision of high risk , unspecified, third trimester Status: Acute Assessment and Plan: 39 yo at 29w2d Rh+ prenatals reviewed, all wnl FHT appropriate for G
[2020-03-03] MEDS: BETAMETHASONE SOD PHOS/ACETATE 30 MG/5 ML VIAL 12 MG IM (10:40)
[2020-03-03] MEDS: LACTATED RINGERS 1,000 ML 250 ML IV CONT (11:35)
== END 2020-03-03 11:40 | disposition short-term general hospital (02) ==
PROVIDERS: Admitting Provider Student in an Organized Health Care Education/Training Program; PCP Family Medicine; Visit Provider Student in an Organized Health Care Education/Training Program
DX: O44.13 Complete placenta previa with hemorrhage, third trimester (principal); Z3A.29 29 weeks gestation of pregnancy
CPT/HCPCS: 36415; 76815; 85025; 86850; 86900; 86901; 96372; G0378; G0379; J0702; J7120

== ENCOUNTER 2020-03-27 10:25 | Observation (INO) | payer OTHER, SELFPAY ==
--- NOTE | ~2020-03-27 | US_ITS ---
EXAMINATION: US OB limited w BPP DATE: 03/27/2020 12:01 INDICATION: Increasing vaginal discharge during third trimester of . TECHNIQUE: Real-time pelvic ultrasound was performed. The interpreting radiologist was not present fo r the study. COMPARISON: None. FINDINGS: There is a single living fetus in vertex presentation. The placenta is posterior. No evident retropl acental hematoma. The region of the cervix is obscured by the shadowing skull. heart rate is 144 beats per minute (bpm). Oligohydramnios with amniotic fluid index of 6.7 cm (2.5th%-97.5%: 7. 7-26.9 at 32 weeks estimated gestational age) Biophysical profile performed by the technologist: breathing (30 sec sustained breathing in 30 minutes): 2 out of 2 movement (3 gross body movements in 30 minutes): 2 out of 2 tone (one episode of qfrmmuj-rjwlwwqom-wwmnfbw limb movement): 2 out of 2 Amniotic fluid pocket (2 cm): 2 out of 2 Total score: 8 out of 8 IMPRESSION: 1. Single living fetus in vertex presentation with heart rate of 144 bpm. 2. Biophysical profile 8 out of 8. 3. Oligohydramnios with amniotic fluid index of 6.7 cm. Reviewed, dictated and finalized at location A. IC SPEAKING INSTRUCTOR
[2020-03-27 10:45] VITALS: BP 96/73; PULSE 111
[2020-03-27 11:00] VITALS: BP 94/76; PULSE 102
[2020-03-27 11:15] VITALS: BP 99/78; PULSE 102
[2020-03-27 11:18] VITALS: TEMP 36.5
--- NOTE | 2020-03-27 11:19 | PM.OBTRLD ---
OB - Triage/Final Diagnosis Visit Information Date of evaluation: 03/27/20 Reason for evaluation: threatened labor Comments/Additional reasons for admission: 39 yo at 33w4d who presents with discharge. Pt's has been complicated by bleeding placenta previa and PPPROM. Pt was last seenon 03/03/20 and was transferred to [place] for actively bleeding previa. While under their care it was diagnosed that she had premature rupture of membranes. Pt was told her leak had sealed off and she was stable for discharge on 03/07/20. She states that early this morning she noticed a large amount of brownish-peters discharge. She states she noted it in the toilet and in her underwear. She reports good movement. She denies any regular contractions, continued bleeding or any large gush of fluid. 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 She states she was recently seen there and had an US that showed an BARBARA of 10. Evaluation Baseline heart rate: 135 Variability: Moderate (11-25) monitor accelerations: Present monitor decelerations: None Vital signs: Vital Signs - 24 hr 03/27/20 10:45 03/27/20 11:00 03/27/20 11:15 Temperature Pulse Rate 111 H 102 H 102 H Blood Pressure 96/73 L 94/76 L 99/78 L 03/27/20 11:18 Temperature 36.5 C Pulse Rate Blood Pressure Comments: Sterile speculum exam was performed. cervix was visibly closed. There was a large amount of brown blood tinged discharge in the vaginal vault. There was no active bleeding noted. There was no fluid efflux or pooling noted. Digital exam was not performed. Pt reassured. No contractions on [place]. Will obtain BPP and d/c home to her primary provider.
[2020-03-27 11:30] VITALS: BP 95/70; PULSE 106
--- NOTE | 2020-03-27 11:53 | OBADM ---
This patient, Elle Rayo, admitted to the OB room OB Post 113 for observation. Patient/family oriented to hospital policies and general routines including ID bracelet, bed and alarms, visiting hours, pain management, procedures, bathroom and other care routines, personal items, smoking policy, room service/diet, and visiting hours. Patient/Family are encouraged to report perceived risks to care and to ask questions if they do not understand what they are told or what they should do.
== END 2020-03-27 12:40 | disposition home or self-care (01) ==
PROVIDERS: Admitting Provider Student in an Organized Health Care Education/Training Program; PCP Family Medicine; Visit Provider Student in an Organized Health Care Education/Training Program
DX: O47.03 False labor before 37 completed weeks of gestation, third trimester (principal); O42.913 Preterm premature rupture of membranes, unspecified as to length of time between rupture and onset of labor, third trimester; Z3A.33 33 weeks gestation of pregnancy
CPT/HCPCS: 76815; 76819; G0378; G0379

== ENCOUNTER 2020-04-14 14:11 | Inpatient (IN) | payer OTHER, SELFPAY ==
[2020-04-14] VITALS (60 sets, daily range): BP systolic 53–137; BP diastolic 38–87; PULSE 51–218; RESP 17–18; TEMP 36.1–36.3; O2SAT 94–100; BMI 35.2
--- NOTE | ~2020-04-14 | US_ITS ---
US OB limited 04/14/2020 15:09 Indication: Vaginal bleeding. History of placenta previa. Procedure: High-resolution Limited obstetrical ultrasound Comparison: 03/27/2020 Findings: There is a single living intrauterine in vertex presentation. heart rate is 173 BPM. The placenta covers the internal cervical os, consistent with previa. Amniotic fluid is bel ow normal limits measuring 2.5 cm (normal range for gestational age is 7.9-24.9 cm).. Impression: 1: Single living intrauterine in vertex presentation. 2: Placenta previa. 3: Oligohydramnios. Reviewed, dictated and finalized at location A. SE COLLECTOR Impression: 1: Single living intrauterine in vertex presentation. 2: Placenta previa. 3: Oligohydramnios.
[2020-04-14 15:08] LABS: Basophils Percent Auto 0.3 % (0.2-1.2); Eosinophils Absolute Auto 0.1 K/mm3 (0-0.3); Eosinophils Percent Auto 0.6 % (0-4.4); Hematocrit 32.6 % (37.0-47.0); Hemoglobin 10.7 g/dL (12.0-15.0); Immature Granulocyte Absolute 0.07 K/mm3 (0.00-0.031); Immature Granulocyte Percent A 0.6 % (0-0.5); Lymphocytes Absolute Auto 2.15 K/mm3 (0.9-3.2); Lymphocytes Percent Auto 19.6 % (18.3-44.2); Mean Corpuscular HGB Conc 32.8 g/dl (32-36); Mean Corpuscular Hemoglobin 29.5 pg (26-34); Mean Corpuscular Volume 89.8 fl (80-100); Mean Platelet Volume 10.6 fl (7.4-10.4); Monocytes Absolute Auto 0.6 K/mm3 (0.1-0.6); Monocytes Percent Auto 5.5 % (2.6-8.5); Neutrophils Absolute Auto 8.1 K/mm3 (1.3-6.7); Neutrophils Percent Auto 73.4 % (45.5-73.1); Platelet Count Result 182 k/mm3 (150-375); Red Blood Count 3.63 M/mm3 (4.2-5.4); Red Cell Distribution Width 14.6 % (11.5-14.5)
--- NOTE | 2020-04-14 16:05 | WPDANESEPP ---
Anes - Eval Pre Procedure Procedure: Operation Date: 04/14/20 16:00 Proposed Procedures p Section - Juan Carlos Greer MD Date/Time: 04/14/20 16:05 Preop Diagnosis: complete previa Pre Op Diagnosis: vaginal bleeding Patient Data Age: 39 Gender: F Height: Weight: Last Vital Signs Pulse 73 04/14/20 15:31 BP 106/73 04/14/20 15:31 Allergies Allergy/AdvReac Type Severity Reaction Status Date / Time No Known Allergies Allergy Verified 01/25/20 12:19 Home Medications Medication Instructions Recorded Confirmed Type fluticasone propionate [Flonase 1 spray NASAL BID #18.2 ml NS 11/01/19 01/25/20 Rx Allergy Relief] ondansetron 8 mg PO Q8H 12/05/19 01/25/20 History doxylamine-pyridoxine (vit B6) 2 tablet PO BID 01/25/20 01/25/20 History promethazine 25 mg PO TID PRN 01/25/20 01/25/20 History Laboratory Tests 04/14/20 14:46 WBC 11.0 K/mm3 H K/mm3 (4.5-10.0) RBC 3.63 M/mm3 L M/mm3 (4.2-5.4) Hgb 10.7 g/dL L g/dL (12.0-15.0) Hct 32.6 % L % (37.0-47.0) MCV 89.8 fl fl (80-100) MCH 29.5 pg pg (26-34) MCHC 32.8 g/dl g/dl (32-36) RDW 14.6 % H % (11.5-14.5) Plt Count 182 k/mm3 k/mm3 (150-375) MPV 10.6 fl H fl (7.4-10.4) Immature Gran % (Auto) 0.6 % H % (0-0.5) Neut % (Auto) 73.4 % H % (45.5-73.1) Lymph % (Auto) 19.6 % % (18.3-44.2) [place] % (Auto) 5.5 % % (2.6-8.5) Eos % (Auto) 0.6 % % (0-4.4) Baso % (Auto) 0.3 % % (0.2-1.2) Lymph # (Auto) 2.15 K/mm3 K/mm3 (0.9-3.2) [place] # (Auto) 0.6 K/mm3 K/mm3 (0.1-0.6) Eos # (Auto) 0.1 K/mm3 K/mm3 (0-0.3) Baso # (Auto) 0.0 K/mm3 K/mm3 (0.0-0.1) Abs Immat Gran (auto) 0.07 K/mm3 H K/mm3 (0.00-0.031) Absolute Neuts (auto) 8.1 K/mm3 H K/mm3 (1.3-6.7) Absolute Nucleated RBC 0.0 K/mm3 K/mm3 (0.0-0.012) Nucleated RBC % 0.0 % % (0.0-0.2) Patient hx anesthesia problems: none Family hx anesthesia problems: none PMFSH Past Medical History Medical History Back problem Hyperemesis gravidarum Social History Social History Smoking status: Former smoker Alcohol intake: never Substance use: current Other substance usage details: MEDICAL MARIJUANA Gender identity (if verbalized by the patient): Female Exam Day of Procedure 04/14/20 16:05 Patient weight: overweight Heart: regular rate and rhythm Lungs: normal air movement Airway: Mallampati scale class II Neurological: alert and oriented
--- NOTE | 2020-04-14 16:18 | LDADM ---
This patient, Elle Rayo, was admitted to OB Post 116 on 04/14/20 at 14:11. Plans for labor, pain management and were discussed with patient. Patient/family oriented to hospital policies and general routines including ID bracelet, bed and alarms, visiting hours, pain management, procedures, bathroom and other care routines, personal items, smoking policy, room service/diet and guest tray routines, security routines, and visiting hours. Patient/Family are encouraged to report perceived risks to care and to ask questions if they do not understand what they are told or what they should do. See OBIX for further documentation.
--- NOTE | 2020-04-14 16:47 | PM.IMHP ---
H&P: HPI History of Present Illness Date/Time: 04/14/20 16:47 Chief Complaint: Big gush of blood Narrative: 39 y/o at 35 2/7 weeks here with vaginal bleeding, gush of fluid. Known to have a complete previa. care with her family medicine physician, Dr. Gonzalez. She says there was no plan as to when/where/with whom she was to deliver. Had a big gush of bloody fluid today, now having frequent contractions. Was seen here in February with bleeding. Received betamethasone and was transferred to [facility], spent several days there and was then sent home. UDS pos for methamphetamine and THC earlier in the , but the patient says this must be an error; she does not use these. Ultrasound exam here confirms complete previa and shows BARBARA of only 2.5 cm. Review of Systems Review of Systems: All systems reviewed & are unremarkable except as noted in HPI and below PMFSH Past Medical History Medical History (Updated 04/14/20 @ 16:54 by Juan Carlos Greer MD) Back problem Hyperemesis gravidarum Surgical History Surgical History History of salpingectomy Social History Social History Smoking status: Never smoker Second hand tobacco smoke exposure: No Alcohol intake: never Substance use: current Other substance usage details: Pt. 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 Gender identity (if verbalized by the patient): Female Sexual Orientation (if Verbalized by the Patient): Straight or Heterosexual Spiritual care concerns: No Meds Home Medications and Allergies Home Medications Medication Instructions Recorded Confirmed Type fluticasone propionate [Flonase 1 spray NASAL BID #18.2 ml NS 11/01/19 04/14/20 Rx Allergy Relief] ondansetron 8 mg PO Q8H 12/05/19 04/14/20 History doxylamine-pyridoxine (vit B6) 2 tablet PO BID 01/25/20 04/14/20 History promethazine 25 mg PO TID PRN 01/25/20 04/14/20 History Allergies Allergy/AdvReac Type Severity Reaction Status Date / Time No Known Allergies Allergy Verified 01/25/20 12:19 Vital Signs Vital Signs - 24 hr 04/14/20 14:25 04/14/20 14:30 04/14/20 15:16 Pulse Rate 90 93 76 Blood Pressure 118/80 109/81 102/69 04/14/20 15:31 Pulse Rate 73 Blood Pressure 106/73 Exam Const: Orientation/consciousness: patient oriented x3 Other: Well-developed, well-nourished female in no acute distress. Neck: Thyroid: thyroid normal Lymphatic: no lymphadenopathy noted (in neck, axilla or inguinal nodes) Resp: Effort & Inspection: normal respiratory effort Auscultation: clear to auscultation bilaterally Cardio: Rate: regular rate Rhythm: regular rhythm Heart sounds: S1 normal heart sound present and S2 normal heart sound present GI: Other: ABD: Soft, nontender, nondistended, gravid. NST reactive. TOCO: contractions every 2 min. No guarding or rebound tenderness. No hepatosplenomegaly. : General: Yes no CVA tenderness Other: Pelvic exam deferred. Gross bleeding seen. Back/Spine/Pelvis: Back: no CVA tenderness Skin: General skin exam: normal color and no rashes or lesions noted Neuro: General: patient oriented x3 Extrem: Other: Extremities: nontender with no edema Psych: Mental Status: mental status grossly normal Affect: normal affect H&P: Results Labs Labs: Short CBC 04/14/20 Range/Units 14:46 WBC 11.0 H (4.5-10.0) K/mm3 Hgb 10.7 L (12.0-15.0) g/dL Hct 32.6 L (37.0-47.0) % Plt Count 182 (150-375) k/mm3 Assessment and Plan Assessment and plan (1) Placenta previa: Code(s): O44.00 - Complete placenta previa NOS or without hemorrhage, unspecified trimester Status: Acute Assessment and Plan: A: IUP at 35 2/7 weeks with complete previa, likely SROM. P: Offered primary . She understands risks of surgery to include risks of anesthesia, risks of pa
--- NOTE | 2020-04-14 16:55 | WPDHPUPDATE1 ---
History and Physical Update Update Date/Time: 04/14/20 16:55 History and Physical has been reviewed, including an updated exam of the patient. There are NO changes in the patient's condition. Risks, benefits, and alternatives have been discussed and questions answered. Patient agrees to proceed with procedure.
[2020-04-14 17:01] LABS: HIV 1/2 Ab P24 Ag Result Negative (Negative)
--- NOTE | 2020-04-14 17:01 | WPDANESEFPP ---
Anes - Eval Final PreProcedure Day of Procedure 04/14/20 17:01 Patient weight: obese Heart: regular rate and rhythm Lungs: clear to auscultation Neurological: alert and oriented ASA classification: II Emergent: yes Anesthetic plan: proceed Anesthesia type and monitoring: regional spinal and standard monitoring Informed Consent: The patient's anesthetic plan and its attendant risks and benefits were discussed with the patient/family/POA. Questions were solicited and answers provided to the satisfaction of the patient/family/POA.
[2020-04-14 17:24] LABS: Amphetamine Screen Urine Negative (Negative); Barbiturate Screen Urine Negative (Negative); Benzodiazepines Screen Urine Negative (Negative); Cannabinoid Screen Urine Positive (Negative); Cocaine Screen Urine Negative (Negative); Methadone Screen Urine Negative (Negative); Opiate Screen Urine Negative (Negative); Phencyclidine Screen Urine Negative (Negative)
--- NOTE | 2020-04-14 17:44 | PM.OBPRVD ---
OB - Delivery Note Procedure Delivery date: 04/14/20 Procedure: Procedures Operation Date: 04/14/20 16:00 <No data on this case meets the specified criteria> Primary low transverse delivery Delivery monitor: external FHT and external uterine Route of delivery: Specimen: Yes (cord blood, placenta) Quantitative Blood Loss (ml): 190 Anesthesia type: Spinal Disposition: PACU Complications: None Narrative: The patient was taken to the operating room where she was prepared and draped in the usual sterile fashion in dorsal supine position with a leftward tilt. She received cefazolin preoperatively. Spinal anesthesia was found to be adequate. A Pfannenstiel skin incision was made and carried through to the underlying layer of the fascia. The fascia was incised in the midline and the incision was extended laterally. The fascia was dissected free of the underlying rectus muscles. The rectus muscles were in the midline. The peritoneum was identified, tented up and entered sharply. The peritoneal incision was extended superiorly and inferiorly with good visualization of the bladder. The bladder blade was placed. The vesicouterine peritoneum was identified, tented up and entered sharply. The incision was extended laterally and the bladder flap was developed. The bladder blade was replaced. The uterus was then incised sharply in a transverse fashion along the lower uterine segment. The incision was extended laterally. The 's head was delivered atraumatically to the sterile field, followed by the body. The nose and mouth were bulb suctioned. After a delay, the cord was clamped and cut. The infant was handed off the field. Cord blood was collected. The placenta was removed manually and was passed off the field. The uterus was exteriorized and cleared of all clots and debris. The uterine incision was reapproximated using 0 Monocryl in a running, locked fashion. A second, imbricating layer of the same suture was placed. Excellent hemostasis resulted as did excellent reapproximation of the normal anatomy. The uterus was returned the abdomen. The pelvis was irrigated copiously with warmed normal saline. Rigorous hemostasis was assured. The fascial layer was reapproximated using 0 Vicryl in a running fashion. The skin was closed with a running, subcuticular stitch of 4 0 Vicryl. Dermaflex was applied externally. Sponge, lap, needle and instrument counts were correct. The patient was taken to the recovery room in stable condition. The went to the nursery in stable condition. I was present and scrubbed the entire procedure. Baby Date of : 04/14/20 Time of : 17:11 Weeks of gestation at delivery: 35 gender: Male Weight (pounds): 4 Weight (ounces): 11 presentation: vertex Placenta delivery description: Manual Removal and Normal Configuration cord vessel description: 3 Vessels and Delayed Cord Clamping score one minute: 8 score five minutes: 9
--- NOTE | 2020-04-14 17:48 | PM.OBDSVD ---
DS: Admitting Diagnosis Admitting Diagnosis Admitting Diagnosis: IUP at 35 2/7 weeks Complete placenta previa Vaginal bleeding Spontaneous rupture of membranes DS: Discharge Diagnosis Discharge Diagnosis (1) labor: Code(s): O60.00 - labor without delivery, unspecified trimester Status: Acute (2) SROM (spontaneous rupture of membranes): Status: Acute (3) Placenta previa: Code(s): O44.00 - Complete placenta previa NOS or without hemorrhage, unspecified trimester Status: Acute OB - DS: Summary OB Procedures : NST and Ultrasound OB Procedures Intrapartum: OB Procedures: : None Peripartum Data Procedures: Procedures Operation Date: 04/14/20 16:00 <No data on this case meets the specified criteria> Time Spent with Patient Time attestation: Total time spent providing and/or coordinating discharge services: DS: Data Data Completed and Pending Pending studies at discharge: Pending at discharge 04/14/20 17:13 Surgical [PTH] Routine Labs on day of discharge: Labs from last 24 hours 04/14/20 04/14/20 04/14/20 16:01 16:01 16:01 WBC RBC Hgb Hct MCV MCH MCHC RDW Plt Count MPV Immature Gran % (Auto) Neut % (Auto) Lymph % (Auto) Randall % (Auto) Eos % (Auto) Baso % (Auto) Lymph # (Auto) Randall # (Auto) Eos # (Auto) Baso # (Auto) Abs Immat Gran (auto) Absolute Neuts (auto) Absolute Nucleated RBC Nucleated RBC % Urine Opiates Screen Negative Urine Methadone Screen Negative Ur Barbiturates Screen Negative Ur Phencyclidine Scrn Negative Ur Amphetamine Screen Negative U Benzodiazepines Scrn Negative Urine Cocaine Screen Negative U Cannabinoids Screen Positive A RPR Pending HIV 1&2 Ab/P24 Ag 4thGn Negative Blood Type Antibody Screen 04/14/20 04/14/20 14:46 14:46 WBC 11.0 H RBC 3.63 L Hgb 10.7 L Hct 32.6 L MCV 89.8 MCH 29.5 MCHC 32.8 RDW 14.6 H Plt Count 182 MPV 10.6 H Immature Gran % (Auto) 0.6 H Neut % (Auto) 73.4 H Lymph % (Auto) 19.6 Randall % (Auto) 5.5 Eos % (Auto) 0.6 Baso % (Auto) 0.3 Lymph # (Auto) 2.15 Randall # (Auto) 0.6 Eos # (Auto) 0.1 Baso # (Auto) 0.0 Abs Immat Gran (auto) 0.07 H Absolute Neuts (auto) 8.1 H Absolute Nucleated RBC 0.0 Nucleated RBC % 0.0 Urine Opiates Screen Urine Methadone Screen Ur Barbiturates Screen Ur Phencyclidine Scrn Ur Amphetamine Screen U Benzodiazepines Scrn Urine Cocaine Screen U Cannabinoids Screen RPR HIV 1&2 Ab/P24 Ag 4thGn Blood Type O Positive Antibody Screen Negative Discharge Plan Discharge Attending physician on discharge: Juan Carlos Greer Discharging Clinician: Juan Carlos Greer Patient Disposition: Home, Self-Care Activity: may shower, may drive after 2 weeks and pelvic rest Diet: regular Wound Care Instructions: incision open to air Discharge Instructions: Call or return if temperature above 100.4? F, increased abdominal pain, increased vaginal bleeding or any new problems. Stand Alone Forms: General Discharge Information Follow-up/Referrals: Juan Carlos Greer MD [Physician] - 4 Weeks Discharge Medications: New ibuprofen 600 mg tablet 600 mg PO Q6H PRN (Reason: cramps) Qty: 30 RF: 0 hydrocodone-acetaminophen 5-325 mg tablet 1 - 2 tablet PO Q6H Qty: 30 RF: 0 ferrous sulfate 325 mg (65 mg iron) tablet 325 mg PO DAILY Qty: 30 RF: 0 No Action promethazine 25 mg tablet 25 mg PO TID PRN (Reason: Nausea And Vomiting) RF: 0 doxylamine-pyridoxine (vit B6) 10-10 mg tablet,delayed release (DR/EC) 2 tablet PO BID RF: 0 fluticasone propionate [Flonase Allergy Relief] 50 mcg/actuation spray,suspension 1 spray NASAL BID Qty: 18.2 RF: 0 ondansetron 4 mg tablet,disintegrating 8 mg PO Q8H RF: 0 Date of admission:
[2020-04-14] MEDS: MORPHINE SULFATE (*CRX) 2 MG/ML INJ 3 MG IV PUSH ×2 (18:48→19:26)
[2020-04-14] MEDS: OXYTOCIN 30 UNITS/NS 500 ML 30 UNITS/500 ML BAG 125 UNITS IV CONT (19:27)
--- NOTE | 2020-04-14 21:04 | PC.NURSE ---
04/14/2020 at 4 Patient transferred to post room #284 on stretcher. Support person present. Oriented to unit, room, information board, rooming in, admission packet and security measures. Patient verbalizes understanding. Significant other left while mother getting settled into room.
--- NOTE | 2020-04-14 23:25 | PC.NURSE ---
04/14/2020 at 2314. Patient taken via wheelchair to Level II nursery to see baby. Mother understands to let nursery nurses know if any needs arise while she is away from the floor.
[2020-04-15 00:01] VITALS: BP 104/79; PULSE 63; RESP 18; TEMP 36.6; O2SAT 100
[2020-04-15] MEDS: DEXTROSE 5%/0.45% SOD CHL 1,000 ML 125 ML IV CONT (00:10)
[2020-04-15] MEDS: diphenhydrAMINE HCl INJ 50 MG/ML VIAL 25 MG IV PUSH (00:45)
--- NOTE | 2020-04-15 03:22 | PC.NURSE ---
04/14/2020 at 2345 Elle in wheelchair brought back to second floor OB and taken back to her room 284. Elle transferred back to bed will without complaints. Pericare done and assessment. Baby and [facility] team to come by before leaving to take baby to [facility].
[2020-04-15 04:05] VITALS: BP 116/70; PULSE 69; RESP 18; TEMP 36.6; O2SAT 97
[2020-04-15] MEDS: IBUPROFEN 600 MG TABLET PO ×3 (04:22→20:59)
[2020-04-15] MEDS: HYDROcodone/acetaminophen (*CRX) 5-325 MG TABLET 1 TAB PO ×2 (04:23→15:10)
[2020-04-15 04:58] LABS: Basophils Percent Auto 0.3 % (0.2-1.2); Eosinophils Absolute Auto 0.1 K/mm3 (0-0.3); Eosinophils Percent Auto 0.6 % (0-4.4); Hematocrit 29.2 % (37.0-47.0); Hemoglobin 9.5 g/dL (12.0-15.0); Immature Granulocyte Absolute 0.04 K/mm3 (0.00-0.031); Immature Granulocyte Percent A 0.4 % (0-0.5); Immature Platelet Fraction Pct 5.6 % (0.9-11.2); Lymphocytes Absolute Auto 1.55 K/mm3 (0.9-3.2); Lymphocytes Percent Auto 16.6 % (18.3-44.2); Mean Corpuscular HGB Conc 32.5 g/dl (32-36); Mean Corpuscular Hemoglobin 29.7 pg (26-34); Mean Corpuscular Volume 91.3 fl (80-100); Mean Platelet Volume 10.6 fl (7.4-10.4); Monocytes Absolute Auto 0.4 K/mm3 (0.1-0.6); Monocytes Percent Auto 4.4 % (2.6-8.5); Neutrophils Absolute Auto 7.2 K/mm3 (1.3-6.7); Neutrophils Percent Auto 77.7 % (45.5-73.1); Platelet Count Result 142 k/mm3 (150-375); Red Cell Distribution Width 14.4 % (11.5-14.5); White Blood Count 9.3 K/mm3 (4.5-10.0)
--- NOTE | 2020-04-15 06:00 | PC.NURSE ---
04/14/2020 at 2030 Patient assessment done and a bruise has been noted on patient's upper left leg. Approximate size of 4 cm X 7 cm. Patient states she believes she got the bruise when her 90 lb dog ran into her.
--- NOTE | 2020-04-15 07:15 | WPDANLDPN2 ---
Anes-Prog Note L&D Date/Time: 04/15/20 07:15 Comfortable throughout: section Neuraxial method: spinal Epidural/Spinal procedure site: clean & non-tender Neuro status: Neuro function grossly intact. Cardiovascular status: normal Respiratory status: normal Airway patency: baseline Mental status: baseline Post-Op hydration status: normal (catheter in place) Vital Signs: Last Vital Signs Temp 36.6 C 04/15/20 04:05 Pulse 69 04/15/20 04:05 Resp 18 04/15/20 04:05 BP 116/70 04/15/20 04:05 Pulse Ox 97 04/15/20 04:05 Pain score (VAS): 0 I/O: Intake & Output 04/14/20 04/14/20 04/15/20 15:59 23:59 07:59 Intake Total 100 600 Output Total 640 975 Balance -540 -375 Post-procedural complaints: none Patient feedback: Patient satisfied with anesthetic care.
--- NOTE | 2020-04-15 07:16 | WPDANLDNPN2 ---
Anes-Prog Note L&D-Neuraxial Date/Time: 04/15/20 07:16 Neuraxial medications: intrathecal PF morphine Opiod-related complaints: none Patient feedback: Patient satisfied with post-operative pain management.
[2020-04-15] MEDS: DOCUSATE SODIUM 100 MG CAPSULE PO ×2 (08:42→21:02)
[2020-04-15] MEDS: MULTIVIT/MIN/PREN/FOL AC/IRON TABLET 1 TAB PO (08:42)
[2020-04-15] MEDS: POLYSACCHARIDE IRON COMPLEX 150 MG CAPSULE PO (08:42)
[2020-04-15] MEDS: SIMETHICONE 80 MG TAB.CHEW PO (08:43)
[2020-04-15 09:10] VITALS: BP 111/78; PULSE 65; RESP 18; TEMP 36.4; O2SAT 100
[2020-04-15 09:12] LABS: Rapid Plasma Reagin Non-Reactive (NonReactive)
--- NOTE | 2020-04-15 09:26 | PC.NURSE ---
Breast pump provided prior to my arrival due to infant being in another hospital. Instructions given on breast pump care and usage, pumping schedule, nipple care, and collection and storage of breast milk. Encouraged breast massage and manual expression to stimulate supply. Assessed patient for correct flange size, placement and draw. Patient verbalizes and demonstrates understanding of instructions.
[2020-04-15] MEDS: ONDANSETRON INJ 4 MG/2 ML VIAL IV PUSH (10:56)
[2020-04-15 12:40] VITALS: BP 125/73; PULSE 71; RESP 18; TEMP 36.6; O2SAT 100
--- NOTE | 2020-04-15 12:52 | PM.OBPNVD ---
OB - PN: Subj Subjective Date/time seen: 04/15/20 12:52 Narrative: Pain OK. Tolerating diet. Baby was transferred to [facility]. OB - PN: Obj Data Labs CBC & Chem 7: 04/15/20 04:28 Labs: Laboratory Results - last 24 hr 04/14/20 04/14/20 04/14/20 14:46 14:46 16:01 WBC 11.0 H RBC 3.63 L Hgb 10.7 L Hct 32.6 L MCV 89.8 MCH 29.5 MCHC 32.8 RDW 14.6 H Plt Count 182 MPV 10.6 H Immature Gran % (Auto) 0.6 H Neut % (Auto) 73.4 H Lymph % (Auto) 19.6 Curry % (Auto) 5.5 Eos % (Auto) 0.6 Baso % (Auto) 0.3 Lymph # (Auto) 2.15 Curry # (Auto) 0.6 Eos # (Auto) 0.1 Baso # (Auto) 0.0 Abs Immat Gran (auto) 0.07 H Absolute Neuts (auto) 8.1 H Absolute Nucleated RBC 0.0 Nucleated RBC % 0.0 % Immature Plt Fraction Urine Opiates Screen Urine Methadone Screen Ur Barbiturates Screen Ur Phencyclidine Scrn Ur Amphetamine Screen U Benzodiazepines Scrn Urine Cocaine Screen U Cannabinoids Screen RPR HIV 1&2 Ab/P24 Ag 4thGn Negative Blood Type O Positive Antibody Screen Negative 04/14/20 04/14/20 04/15/20 16:01 16:01 04:28 WBC 9.3 RBC 3.20 L Hgb 9.5 L Hct 29.2 L MCV 91.3 MCH 29.7 MCHC 32.5 RDW 14.4 Plt Count 142 L MPV 10.6 H Immature Gran % (Auto) 0.4 Neut % (Auto) 77.7 H Lymph % (Auto) 16.6 L Curry % (Auto) 4.4 Eos % (Auto) 0.6 Baso % (Auto) 0.3 Lymph # (Auto) 1.55 Curry # (Auto) 0.4 Eos # (Auto) 0.1 Baso # (Auto) 0.0 Abs Immat Gran (auto) 0.04 H Absolute Neuts (auto) 7.2 H Absolute Nucleated RBC 0.0 Nucleated RBC % 0.0 % Immature Plt Fraction 5.6 Urine Opiates Screen Negative Urine Methadone Screen Negative Ur Barbiturates Screen Negative Ur Phencyclidine Scrn Negative Ur Amphetamine Screen Negative U Benzodiazepines Scrn Negative Urine Cocaine Screen Negative U Cannabinoids Screen Positive A RPR Non-reactive HIV 1&2 Ab/P24 Ag 4thGn Blood Type Antibody Screen Imaging Radiologist's impression: Impressions Obstetrics Ultrasound 04/14/20 15:10 Impression: 1: Single living intrauterine in vertex presentation. 2: Placenta previa. 3: Oligohydramnios. OB - PN A/P Plan Comments: A: POD#1, doing well. P: Routine care. May visit her son today. May consider discharge tomorrow. Exam Narrative: Exam Narrative: AVSS I/O OK ABD soft, nontender, fundus firm. Incision c/d/i. EXT nontender
--- NOTE | 2020-04-15 16:09 | PC.NURSE ---
1515 Left on a 4 hour pass to visit infant at [facility]. FOB drove her.
[2020-04-15 20:45] VITALS: BP 112/74; PULSE 78; RESP 16; TEMP 36.6; O2SAT 100
--- NOTE | 2020-04-15 20:45 | PC.NURSE ---
Pt returned from pass to visit/rivas with at [facility]. Pt is tearful regarding separation from her and states she is exhausted. Pt requests not to be disturbed through the night for rounding. Pt states she will call out for needs through the night. Instructed mother to pump her breasts at least once through the night if possible and pt verbalized understanding. Will continue to offer support and address needs as pt requests. No distress noted.
[2020-04-15] MEDS: HYDROcodone/acetaminophen (*CRX) 10-325 MG TABLET 1 TAB PO (20:58)
[2020-04-16] MEDS: IBUPROFEN 600 MG TABLET PO (07:30)
[2020-04-16] MEDS: DOCUSATE SODIUM 100 MG CAPSULE PO (07:30)
[2020-04-16] MEDS: SIMETHICONE 80 MG TAB.CHEW PO (07:30)
[2020-04-16] MEDS: MULTIVIT/MIN/PREN/FOL AC/IRON TABLET 1 TAB PO (07:30)
[2020-04-16] MEDS: POLYSACCHARIDE IRON COMPLEX 150 MG CAPSULE PO (07:30)
[2020-04-16] MEDS: HYDROcodone/acetaminophen (*CRX) 5-325 MG TABLET 1 TAB PO (07:31)
[2020-04-16 08:00] VITALS: BP 116/88; PULSE 80; RESP 18; TEMP 37
--- NOTE | 2020-04-16 09:06 | PM.OBPNVD ---
OB - PN: Subj Subjective Date/time seen: 04/16/20 09:06 Narrative: Pain OK. Tolerating diet. Would like to go home. OB - PN: Obj Data Labs CBC & Chem 7: 04/15/20 04:28 Labs: Laboratory Results - last 24 hr 04/14/20 16:01 RPR Non-reactive OB - PN A/P Plan Comments: A: POD#2, doing well. P: Home to f/u 4 weeks. Exam Narrative: Exam Narrative: AVSS ABD soft, nontender, fundus firm. Incision c/d/i. EXT nontender
--- NOTE | 2020-04-16 09:34 | PC.NURSE ---
Self care discharge instructions given including follow up visit date and time. Pt. verbalized understanding. No questions or concerns voiced. Very pleasant and cooperative. Anxious to see infant at [facility]. FOB at side.
== END 2020-04-16 10:10 | disposition home or self-care (01) | DRG 540 ==
LOC: ANHOBPP 17:49 → ANHLDR 19:38 → ANHOB2 20:40
PROVIDERS: Admitting Provider Obstetrics & Gynecology; PCP Family Medicine; Visit Provider Obstetrics & Gynecology
PROC: 10D00Z1 Extraction of Products of Conception, Low, Open Approach (ICD-10-PCS; CPT 59514; principal; 2020-04-14 16:00)
DX: O44.13 Complete placenta previa with hemorrhage, third trimester (principal); Z37.0 Single live birth; Z3A.35 35 weeks gestation of pregnancy; O60.14X0 Preterm labor third trimester with preterm delivery third trimester, not applicable or unspecified; O99.214 Obesity complicating childbirth; E66.9 Obesity, unspecified
CPT/HCPCS: 36415; 76815; 80307; 85025; 85055; 86592; 86703; 86850; 86900; 86901; 88305; 88307; A9270; G0432; J0131; J1200; J2270; J2274; J2370; J2405; J2590

== ENCOUNTER 2020-11-12 12:53 | Emergency (ER) | payer OTHER, SELFPAY ==
--- NOTE | 2020-11-12 13:58 | ED.NAVMDI ---
HPI - Nausea/Vomiting/Diarrhea General Chief complaint: Nausea/Vomiting/Diarrhea Stated complaint: sick Source: patient and RN notes reviewed Mode of arrival: ambulatory Limitations: no limitations History of Present Illness MD elicited complaint: nausea and vomiting Pertinent past history: other ( Hyperemesis gravidarum) Description of vomiting: bilious Associated nausea: Yes Associated abdominal pain: No Location of pain: none Pain consistency: intermittent Severity: similar to previous episodes Exacerbating factors: eating and vomiting Relieving factors: none Context: other ( 10 weeks) Related Data Home Medications Medication Instructions Recorded Confirmed ondansetron 8 mg PO BID PRN 11/12/20 11/12/20 Allergies Allergy/AdvReac Type Severity Reaction Status Date / Time No Known Allergies Allergy Verified 11/12/20 14:14 Review of Systems Review of Systems: All systems reviewed & are unremarkable except as noted in HPI and below PMFSH Past Medical History Medical History Back problem Hyperemesis gravidarum Surgical History Surgical History History of salpingectomy Social History Social History Smoking status: Never smoker Second hand tobacco smoke exposure: No Alcohol intake: never Alcohol use details: not currently Substance use: current Other substance usage details: Pt. 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 HENMT: Head: normal to inspection Ears: external ears normal Eyes: Cornea: corneas normal Pupils: Equal, round and reactive pupils present EOM: EOMs intact bilaterally Neck: Neck: normal visual inspection Resp: Effort & Inspection: normal respiratory effort Auscultation: clear to auscultation bilaterally Cardio: Rate: regular rate Rhythm: regular rhythm GI: GI Palp: Yes Soft to palpation, Yes Tenderness to palpation present (GI) (mild feels sore), No Guarding due to palpation present (GI) and No Rebound tenderness present Auscultation: normal bowel sounds Back/Spine/Pelvis: Cervical Spine: cervical ROM normal Thoracic/Lumbar Spine: thoraco-lumbar ROM normal Skin: General skin exam: normal color Rashes: no rashes Neuro: General: patient oriented x3, moves all extremities, no meningeal signs and no focal motor deficits Speech: normal speech Gait exam (Neuro): Normal gait present Extrem: General: normal to inspection and no clubbing, cyanosis or edema Psych: Appearance: grossly normal and well kempt Mental Status: mental status grossly normal Affect: normal affect Attitude: cooperative Thought content: Yes Normal thought content present Course Vital Signs Vital signs: Vital Signs Temperature 36.4 C 11/12/20 14:00 Pulse Rate 57 L 11/12/20 14:00 Respiratory Rate 16 11/12/20 14:00 Blood Pressure 151/76 H 11/12/20 14:00 Pulse Oximetry 100 11/12/20 14:00 Temperature 36.4 C 11/12/20 14:00 Pulse Rate 76 11/12/20 16:16 Respiratory Rate 16 11/12/20 16:16 Blood Pressure 132/76 11/12/20 16:16 Pulse Oximetry 98 11/12/20 16:16 MDM - Nausea/Vomiting/Diarrhea Lab Data Attestation: I reviewed the patient's lab results. Result diagrams: 11/12/20 14:20 11/12/20 14:20 Labs: Lab Results 11/12/20 11/12/20 11/12/20 Range/Units 14:20 14:20 14:20 WBC 11.5 H (4.8-10.8) K/mm3 RBC 4.47 (4.20-5.40) M/mm3 Hgb 13.1 (12.0-15.0) g/dL Hct 38
[2020-11-12 14:00] VITALS: BP 151/76; PULSE 57; RESP 16; TEMP 36.4; O2SAT 100
[2020-11-12 14:27] LABS: Basophils Absolute Auto 0.01 K/mm3 (0.00-0.10); Basophils Percent Auto 0.1 % (0.0-1.0); Eosinophils Absolute Auto 0.02 K/mm3 (0.02-0.50); Eosinophils Percent Auto 0.2 % (1.0-6.0); Hematocrit 38.5 % (35.0-49.0); Hemoglobin 13.1 g/dL (12.0-15.0); Immature Granulocyte Absolute 0.06 K/mm3 (0.00-0.00); Immature Granulocyte Percent A 0.5 % (0.0-0.0); Lymphocytes Absolute Auto 0.68 K/mm3 (1.10-4.50); Lymphocytes Percent Auto 5.9 % (18.0-42.0); Mean Corpuscular Hemoglobin 29.3 pg (27.0-31.0); Mean Corpuscular Volume 86.1 fL (78.0-102.0); Mean Platelet Volume 10.2 fl (9.2-11.8); Monocytes Absolute Auto 0.37 K/mm3 (0.10-0.90); Monocytes Percent Auto 3.2 % (2.0-11.0); Neutrophils Absolute Auto 10.4 K/mm3 (1.7-7.2); Neutrophils Percent Auto 90.1 % (50.0-70.0); Platelet Count Result 170 K/mm3 (150-420); Red Blood Count 4.47 M/mm3 (4.20-5.40); Red Cell Distribution Width 14.5 % (11.6-14.4); White Blood Count 11.5 K/mm3 (4.8-10.8)
[2020-11-12 14:39] LABS: Alanine Aminotransferase 33 U/L (14-59); Albumin Level 3.7 g/dL (3.4-5.0); Alkaline Phosphatase 45 U/L (46-116); Anion Gap 13 mmol/L (8-16); Aspartate Amino Transferase 17 U/L (15-37); Bilirubin,Total 0.4 mg/dL (0.00-1.00); Blood Urea Nitrogen 13 mg/dL (7-18); CRP < 0.2 mg/dL (0.0-0.9); Calcium 9.2 mg/dL (8.5-10.1); Carbon Dioxide 23 mmol/L (21-32); Chloride 104 mmol/L (98-108); Estimated CRCL calculation 120 ml/min; Estimated Glomerular Filt Rate > 60; Glucose 145 mg/dL (70-99); Osmolality Calculated 293 mOsm/kg (285-295); Potassium 3.8 mmol/L (3.5-5.1); Sodium 140 mmol/L (136-145); Total Protein 7.1 g/dL (6.4-8.2)
[2020-11-12] MEDS: ONDANSETRON INJ 4 MG/2 ML VIAL IV PUSH (14:40)
[2020-11-12] MEDS: SODIUM CHLORIDE 0.9% IV 1,000 ML 999 ML IV CONT (14:40)
[2020-11-12 15:30] VITALS: BP 135/77; PULSE 76; RESP 14; O2SAT 100
--- NOTE | 2020-11-12 15:30 | PC.NURSE ---
Assumed care of patient who is resting in bed, no vomiting since arrival. VSS. ERP plan once IVF complete patient may be discharged,
--- NOTE | 2020-11-12 16:15 | PC.NURSE ---
Pt has vomited green bile, she was offered to be evaluated by ERP but she has said she wants to go home instead. She asked for ice chips upon discharge.
[2020-11-12 16:16] VITALS: BP 132/76; PULSE 76; RESP 16; O2SAT 98
== END 2020-11-12 16:17 | disposition home or self-care (01) ==
PROVIDERS: Emergency Provider Emergency Medicine; PCP Family Medicine
DX: O21.0 Mild hyperemesis gravidarum (principal)
CPT/HCPCS: 36415; 80053; 85025; 86140; 96361; 96374; 99283; 99284; J2405; J7030

== ENCOUNTER 2020-12-07 13:38 | Emergency (ER) | payer OTHER, SELFPAY ==
[2020-12-07 13:50] VITALS: BP 110/70; PULSE 123; RESP 20; TEMP 37; O2SAT 96
[2020-12-07 14:12] LABS: Basophils Percent Auto 0.1 % (0.2-1.2); Eosinophils Percent Auto 0.1 % (0-4.4); Hemoglobin 13.3 g/dL (12.0-15.0); Immature Granulocyte Absolute 0.07 K/mm3 (0.00-0.031); Immature Granulocyte Percent A 0.5 % (0-0.5); Lymphocytes Absolute Auto 1.67 K/mm3 (0.9-3.2); Lymphocytes Percent Auto 12.1 % (18.3-44.2); Mean Corpuscular HGB Conc 34.1 g/dl (32-36); Mean Corpuscular Hemoglobin 30.3 pg (26-34); Mean Corpuscular Volume 88.8 fl (80-100); Mean Platelet Volume 10.1 fl (7.4-10.4); Monocytes Absolute Auto 0.8 K/mm3 (0.1-0.6); Neutrophils Absolute Auto 11.2 K/mm3 (1.3-6.7); Neutrophils Percent Auto 81.2 % (45.5-73.1); Platelet Count Result 235 k/mm3 (150-375); Red Blood Count 4.39 M/mm3 (4.2-5.4); Red Cell Distribution Width 14.6 % (11.5-14.5); White Blood Count 13.8 K/mm3 (4.5-10.0)
[2020-12-07 14:21] LABS: Alanine Aminotransferase 18 U/L (4-35); Albumin Level 4.5 g/dL (3.5-5.1); Alkaline Phosphatase 40 U/L (38-126); Anion Gap 11 mmol/L (8-16); Aspartate Amino Transferase 21 U/L (14-36); Bilirubin,Total 0.4 mg/dL (0.2-1.3); Blood Urea Nitrogen 12 mg/dL (7-17); Calcium 9.8 mg/dL (8.4-10.2); Carbon Dioxide 26 mmol/L (22-30); Chloride 100 mmol/L (98-107); Estimated CRCL calculation 122 ml/min; Estimated Glomerular Filt Rate > 60; Glucose 102 mg/dL (65-110); Lipase 123 U/L (23-300); Potassium 3.4 mmol/L (3.4-5.0); Sodium 137 mmol/L (137-145)
--- NOTE | 2020-12-07 14:53 | PC.NURSE ---
pt up to desk stating i'm leaving . pt amb out of ed with no issue and steady gait.
== END 2020-12-07 14:53 | disposition left against medical advice (07) ==
PROVIDERS: Emergency Provider Emergency Medicine; PCP Family Medicine
DX: O21.0 Mild hyperemesis gravidarum (principal); Z3A.15 15 weeks gestation of pregnancy
CPT/HCPCS: 36415; 80053; 83690; 85025; 99199

== ENCOUNTER 2020-12-26 12:02 | Outpatient (CLI) | payer OTHER, SELFPAY ==
[2020-12-26 12:20] LABS: Basophils Absolute Auto 0.03 K/mm3 (0.00-0.10); Basophils Percent Auto 0.4 % (0.0-1.0); Eosinophils Absolute Auto 0.12 K/mm3 (0.02-0.50); Eosinophils Percent Auto 1.4 % (1.0-6.0); Hematocrit 37.1 % (35.0-49.0); Hemoglobin 12.4 g/dL (12.0-15.0); Immature Granulocyte Absolute 0.04 K/mm3 (0.00-0.00); Immature Granulocyte Percent A 0.5 % (0.0-0.0); Lymphocytes Absolute Auto 1.74 K/mm3 (1.10-4.50); Lymphocytes Percent Auto 20.8 % (18.0-42.0); Mean Corpuscular HGB Conc 33.4 g/dL (32.0-36.0); Mean Corpuscular Hemoglobin 29.7 pg (27.0-31.0); Mean Platelet Volume 9.9 fl (9.2-11.8); Monocytes Absolute Auto 0.43 K/mm3 (0.10-0.90); Monocytes Percent Auto 5.1 % (2.0-11.0); Neutrophils Percent Auto 71.8 % (50.0-70.0); Platelet Count Result 209 K/mm3 (150-420); Red Blood Count 4.17 M/mm3 (4.20-5.40); Red Cell Distribution Width 13.9 % (11.6-14.4); White Blood Count 8.4 K/mm3 (4.8-10.8)
[2020-12-26] MEDS: LACTATED RINGERS 1,000 ML 999 ML IV CONT (12:45)
[2020-12-26 13:28] LABS: Vitamin B12 410 pg/mL (193-986)
[2020-12-26] MEDS: LACTATED RINGERS 1,000 ML 250 ML IV CONT (13:53)
== END 2020-12-26 12:03 | disposition home or self-care (01) ==
LOC: CHSTREATRM 12:03
PROVIDERS: PCP Family Medicine; Visit Provider Family Medicine
DX: O21.0 Mild hyperemesis gravidarum (principal)
CPT/HCPCS: 36415; 82607; 85025; 96365; 96366; J7120

== ENCOUNTER 2021-03-21 14:52 | Observation (INO) | payer OTHER, SELFPAY ==
[2021-03-21 15:20] VITALS: BMI 34.2
[2021-03-21 15:24] VITALS: BP 121/69; PULSE 100
[2021-03-21 15:50] LABS: Add Urine Microscopic? YES; Appearance Urine Clear (Clear); Bilirubin Urine Negative (Negative); Blood Urine Negative (Negative); Color Urine Yellow (Yellow); Glucose Urine UA Negative (Negative); Ketones Urine Negative (Negative); Leukocyte Esterase Ur Negative LEU/UL (Negative); Mucus Urine Rare /lpf; Nitrate Urine Negative (Negative); Protein Urine 1+ mg/dL (Negative); Specific Grav Ur 1.028 (1.001-1.035); Squamous Epithelial Cell Urine Rare /hpf (Few); WBC Urine 0-3 /hpf
[2021-03-21 16:00] VITALS: BP 103/64; PULSE 101
--- NOTE | 2021-03-21 16:30 | PC.NURSE ---
Pt here with reports of leaking prior to urinating earlier today. Also complains of vericose veins on her inner thigh that worsened over night. Vericose veins are not tender to touch, not reddened. Pt has been receiving care with Dr. Gonzalez in [place]. with her last she also received care with her and delivered at [facility]. Encouraged pt to change providers to [facility] so we may better care for her during her . Pt also reports hyperemesis with this .
--- NOTE | 2021-04-27 23:01 | P.PNOB_ITS ---
OB - Triage/Final Diagnosis Visit Information Comments/Additional reasons for admission: I have assessed the risk for this patient, Elle Rayo, and determined that she would benefit from observation care. Evaluation Laboratory results: Laboratory Tests 03/21/21 15:37 Urine Color Yellow Urine Appearance Clear Urine pH 7.0 Ur Specific [place] 1.028 Urine Protein 1+ H Urine Glucose (UA) Negative Urine Ketones Negative Ur Blood (Man) Negative Urine Nitrate Negative Urine Bilirubin Negative Urine Urobilinogen 4.0 H Leukocyte Esterase Rfl Negative Urine RBC 3-5 H Urine WBC 0-3 Ur Squamous Epith Cells Rare Urine Mucus Rare Final Diagnosis (1) Threatened labor, antepartum: Code(s): O47.9 - False labor, unspecified Status: Acute
== END 2021-03-21 16:20 | disposition home or self-care (01) ==
PROVIDERS: Admitting Provider Obstetrics & Gynecology; PCP Family Medicine; Visit Provider Obstetrics & Gynecology
DX: O47.03 False labor before 37 completed weeks of gestation, third trimester (principal); Z3A.30 30 weeks gestation of pregnancy
CPT/HCPCS: 81001; G0378; G0379

== ENCOUNTER 2021-03-28 16:29 | Emergency (ER) | payer OTHER, SELFPAY ==
[2021-03-28] VITALS (10 sets, daily range): BP systolic 136–166; BP diastolic 76–119; PULSE 98–114; RESP 16–18; TEMP 36.9; O2SAT 97–100
--- NOTE | 2021-03-28 17:09 | ED.NAVMDI ---
HPI - Nausea/Vomiting/Diarrhea General Chief complaint: Nausea/Vomiting/Diarrhea Stated complaint: hyperememis/30 wks preg/vomiting for 3 days/fever Time Seen by Provider: 03/28/21 17:09 Source: patient Mode of arrival: ambulatory Limitations: no limitations History of Present Illness HPI Narrative: 40-year-old comes to the hospital today complaining of fever, heartburn, and feeling sick for several days.. She has had hyperemesis gravidarum through her which is now at about 30-31 weeks. She has been taking 8 mg Zofran every 8 hours to no avail and states she is also using marijuana for her symptoms.. Her son also has fever, cough and cold symptoms. She denies headache, rash, abdominal pain, vaginal discharge, vaginal bleeding, dysuria, hematuria, and visual changes. her 1st miscarried at 24 weeks (vaginal delivery) in her 2nd was an live at 36 weeks for placenta previa. MD elicited complaint: nausea and vomiting Pertinent past history: other ( /hyperemesis) Onset (ago): day(s) Description of vomiting: food contents and watery Associated nausea: Yes Associated abdominal pain: No Pain consistency: constant Severity: moderate Quality: other ( burning) Exacerbating factors: none Relieving factors: none Context: sick contacts and marijuana use Associated symptoms: cough, fever/chills and nausea/vomiting Related Data Home Medications Medication Instructions Recorded Confirmed ondansetron 8 mg PO BID PRN 11/12/20 03/28/21 Allergies Allergy/AdvReac Type Severity Reaction Status Date / Time No Known Allergies Allergy Verified 11/12/20 14:14 Review of Systems Review of Systems: All systems reviewed & are unremarkable except as noted in HPI and below Constitutional: Constitutional: Denies chills, Reports fatigue and Reports fever(s) Eyes: Eyes: Denies change in vision and Denies photophobia ENT: Denies nasal congestion and Denies sore throat Cardiovascular: Cardiovascular: Denies chest pain and Denies radiating jaw, neck or arm pain Respiratory: Respiratory: Denies cough and Denies dyspnea Gastrointestinal: Gastrointestinal: Reports heartburn, Denies diarrhea, Reports nausea and Reports vomiting Genitourinary: Genitourinary: Denies hematuria, Denies nocturia and Denies dysuria Musculoskeletal: Musculoskeletal: Denies back pain, Denies arthralgias and Denies joint swelling Integumentary/Breasts: Skin/Breast: Denies pruritus, Denies erythema and Denies rash Neurologic: Denies vertigo and Denies dizziness Hematologic/Lymphatic: Hematologic/Lymphatic: Denies easy bleeding and Denies easy bruising Allergic/Immunologic: Allergic/Immunologic: Denies lip swelling and Denies throat swelling PMFSH Past Medical History Medical History Back problem Hyperemesis gravidarum Surgical History Surgical History History of salpingectomy Social History Social History Smoking status: Never smoker Second hand tobacco smoke exposure: No Alcohol intake: never Alcohol use details: not currently Substance use: current Other substance usage details: Pt. 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 Gender identity (if verbalized by the patient): Female Sexual Orientation (if Verbalized by the Patient): Straight or Heterosexual Spiritual care concerns: No Exam Const: General: healthy appearing, no acute distress and alert Orientation/consciousness: patient oriented x3 Limitations: no limitations HENMT: Head: normal to inspection Ears: external ears normal, TM's normal bilaterally and EAC's normal Face and sinus: normal facial exam Mouth: Yes moist mucous membranes Throat: posterior oropharynx normal Eyes: Cornea: corneas normal Pupils: Equal, round and reactive
[2021-03-28] MEDS: ONDANSETRON INJ 4 MG/2 ML VIAL 8 MG IV PUSH (17:30)
[2021-03-28] MEDS: SODIUM CHLORIDE 0.9% IV 1,000 ML 999 ML IV CONT ×2 (17:30→20:05)
[2021-03-28 17:59] LABS: Basophils Absolute Auto 0.02 K/mm3 (0.00-0.10); Basophils Percent Auto 0.1 % (0.0-1.0); Eosinophils Absolute Auto 0.02 K/mm3 (0.02-0.50); Eosinophils Percent Auto 0.1 % (1.0-6.0); Hematocrit 33.9 % (35.0-49.0); Hemoglobin 11.1 g/dL (12.0-15.0); Immature Granulocyte Absolute 0.14 K/mm3 (0.00-0.00); Immature Granulocyte Percent A 0.8 % (0.0-0.0); Lymphocytes Absolute Auto 1.35 K/mm3 (1.10-4.50); Lymphocytes Percent Auto 7.9 % (18.0-42.0); Mean Corpuscular HGB Conc 32.7 g/dL (32.0-36.0); Mean Corpuscular Hemoglobin 29.5 pg (27.0-31.0); Mean Corpuscular Volume 90.2 fL (78.0-102.0); Mean Platelet Volume 9.6 fl (9.2-11.8); Monocytes Absolute Auto 0.92 K/mm3 (0.10-0.90); Monocytes Percent Auto 5.4 % (2.0-11.0); Neutrophils Absolute Auto 14.7 K/mm3 (1.7-7.2); Neutrophils Percent Auto 85.7 % (50.0-70.0); Platelet Count Result 229 K/mm3 (150-420); Red Blood Count 3.76 M/mm3 (4.20-5.40); Red Cell Distribution Width 14.1 % (11.6-14.4); White Blood Count 17.1 K/mm3 (4.8-10.8)
[2021-03-28 18:13] LABS: Lactic Acid Reflex 1.2 mmol/L (0.4-2.0)
[2021-03-28 18:22] LABS: Alanine Aminotransferase 27 U/L (14-59); Albumin Level 2.9 g/dL (3.4-5.0); Alkaline Phosphatase 59 U/L (46-116); Anion Gap 9 mmol/L (8-16); Aspartate Amino Transferase 16 U/L (15-37); Bilirubin,Total 0.3 mg/dL (0.00-1.00); Blood Urea Nitrogen 10 mg/dL (7-18); Calcium 9.1 mg/dL (8.5-10.1); Carbon Dioxide 27 mmol/L (21-32); Chloride 101 mmol/L (98-108); Estimated CRCL calculation 98 ml/min; Estimated Glomerular Filt Rate > 60; Glucose 107 mg/dL (70-99); Lactate Dehydrogenase 148 U/L (81-234); Osmolality Calculated 283 mOsm/kg (285-295); Potassium 3.3 mmol/L (3.5-5.1); Sodium 137 mmol/L (136-145); Total Protein 6.2 g/dL (6.4-8.2)
--- NOTE | 2021-03-28 18:31 | PC.NURSE ---
discussed pt blood pressure with dr slois. infusing normal saline as ordered. will await lab results to make determination regarding blood pressure treatment.
[2021-03-28 18:33] LABS: Influenza A QL RT-PCR Negative (Negative); Influenza B QL RT-PCR Negative (Negative); SARS-CoV-2 RNA PCR Negative (Negative)
[2021-03-28 18:37] LABS: Lipase 86 U/L (73-393)
--- NOTE | 2021-03-28 19:08 | PC.NURSE ---
report to loraine rosado
--- NOTE | 2021-03-28 19:17 | PC.NURSE ---
received report for MYCHAL Keller.
--- NOTE | 2021-03-28 19:29 | PC.NURSE ---
Patient waiting in room at this time for results. RN called [facility] maternal center for potential transfer/consult for Dr. Berger for hypertension
--- NOTE | 2021-03-28 19:49 | ECG_ITS ---
Measurements Intervals [place] Rate: 151 P: 56 ND: 117 QRS: 59 QRSD: 82 T: 43 QT: 277 QTc: 440 Interpretive Statements SINUS TACHYCARDIA WITH SHORT ND INTERVAL MINIMAL Q WAVES- INFERIOR LEADS BORDERLINE ST ABNORMALITY- ANTEROLATERAL LEADS ABNORMAL ECG Electronically Signed On 03-28-2021 20:08:53 INSURANCE BILLING CLERK by Fabiano Auguste D.O.
--- NOTE | 2021-03-28 21:14 | PC.NURSE ---
RN notified MD of holding BP medication due to patient having five BP reading WNL prior to giving medications. Patient resting comfortably in bed, appears to be sleeping at this time.
--- NOTE | 2021-03-28 21:56 | PC.NURSE ---
RN in room with maternal unit RNJayla reviewing BPs for duration of visit. Manual BP taken and resulted as 110/68. ERP aware and states continue with transfer at this time.
--- NOTE | 2021-03-28 21:59 | PC.NURSE ---
RN in room with maternal unit Jayla HORTA reviewing BPs for duration of visit. Manual BP taken and resulted as 110/68. ERP aware and no further orders given at this time. [place] filled with ice and wash clothes given to RN along with ochoa kit.
== END 2021-03-28 21:51 | disposition short-term general hospital (02) ==
PROVIDERS: Emergency Provider Emergency Medicine; PCP Family Medicine
DX: O21.0 Mild hyperemesis gravidarum (principal); O14.90 Unspecified pre-eclampsia, unspecified trimester; Z20.822 Contact with and (suspected) exposure to COVID-19
CPT/HCPCS: 36415; 80053; 83605; 83615; 83690; 85025; 87040; 87502; 93005; 96361; 96374; 99285; C9803; J2405; J7030; U0003; U0005

== ENCOUNTER 2021-04-22 14:27 | Observation (INO) | payer OTHER, SELFPAY ==
[2021-04-22] VITALS (26 sets, daily range): BP systolic 107–159; BP diastolic 58–116; PULSE 84–141; RESP 18; TEMP 36.6; BMI 37.6
[2021-04-22 15:48] LABS: Basophils Percent Auto 0.3 % (0.2-1.2); Hematocrit 33.6 % (37.0-47.0); Immature Granulocyte Absolute 0.09 K/mm3 (0.00-0.031); Immature Granulocyte Percent A 0.6 % (0-0.5); Lymphocytes Absolute Auto 0.42 K/mm3 (0.9-3.2); Lymphocytes Percent Auto 2.7 % (18.3-44.2); Mean Corpuscular HGB Conc 32.7 g/dl (32-36); Mean Corpuscular Hemoglobin 29.6 pg (26-34); Mean Corpuscular Volume 90.3 fl (80-100); Mean Platelet Volume 10.2 fl (7.4-10.4); Monocytes Absolute Auto 0.2 K/mm3 (0.1-0.6); Monocytes Percent Auto 1.5 % (2.6-8.5); Neutrophils Absolute Auto 14.9 K/mm3 (1.3-6.7); Neutrophils Percent Auto 94.9 % (45.5-73.1); Platelet Count Result 160 k/mm3 (150-375); Red Blood Count 3.72 M/mm3 (4.2-5.4); Red Cell Distribution Width 14.1 % (11.5-14.5); White Blood Count 15.7 K/mm3 (4.5-10.0)
[2021-04-22] MEDS: ONDANSETRON INJ 4 MG/2 ML VIAL IV PUSH (15:48)
[2021-04-22] MEDS: LACTATED RINGERS 1,000 ML 999 ML IV CONT ×2 (15:48→16:32)
[2021-04-22] MEDS: FAMOTIDINE 20 MG/2 ML VIAL IV PUSH (15:50)
[2021-04-22 16:18] LABS: Ovalocytes 1+ (NORMAL); Platelet Estimate Adequate (Adequate)
[2021-04-22 16:48] LABS: Alanine Aminotransferase 17 U/L (4-35); Albumin Level 3.5 g/dL (3.5-5.1); Alkaline Phosphatase 66 U/L (38-126); Aspartate Amino Transferase 25 U/L (14-36); Bilirubin,Total 0.4 mg/dL (0.2-1.3); Blood Urea Nitrogen 7 mg/dL (7-17); Calcium 8.7 mg/dL (8.4-10.2); Carbon Dioxide 20 mmol/L (22-30); Chloride 109 mmol/L (98-107); Estimated CRCL calculation 249 ml/min; Estimated Glomerular Filt Rate > 60; Glucose 115 mg/dL (65-110); Potassium 3.8 mmol/L (3.4-5.0); Uric Acid 4.8 mg/dL (2.5-7.5)
[2021-04-22 18:15] LABS: Add Urine Microscopic? YES; Appearance Urine Clear (Clear); Bilirubin Urine Negative (Negative); Blood Urine Negative (Negative); Color Urine Yellow (Yellow); Glucose Urine UA Negative (Negative); Ketones Urine 2+ mg/dL (Negative); Leukocyte Esterase Ur Negative LEU/UL (NEGATIVE); Mucus Urine Rare /lpf; Nitrate Urine Negative (Negative); Protein Urine Negative (Negative); Specific Grav Ur 1.023 (1.001-1.035); Squamous Epithelial Cell Urine Few /hpf (Few); Urobilinogen Urine Negative mg/dL (<2.0)
[2021-04-22 18:58] LABS: Anion Gap 4 mmol/L (8-16); Sodium 133 mmol/L (137-145)
[2021-04-22 19:58] LABS: Creatinine Urine 110.3 mg/dL
[2021-04-22] MEDS: METOCLOPRAMIDE HCL INJ 10 MG/2 ML VIAL IV PUSH (20:30)
[2021-04-22] MEDS: DEXTROSE 5%/LACTATED RINGERS 1,000 ML 100 ML IV CONT (20:30)
[2021-04-22 20:34] LABS: Total Protein Urine Random < 5 mg/dL
[2021-04-22 20:35] LABS: Ur Ttl Prot Creatinine Ratio < 0.05 mg/mg (0-0.20)
--- NOTE | 2021-04-22 21:57 | PC.NURSE ---
2006- called,informed pt is still c/o nausea and is dry heaving. Orders received for D5LR IV and reglan
[2021-04-22] MEDS: PROMETHAZINE HCL 25 MG/ML AMPUL IM (23:29)
[2021-04-22] MEDS: ONDANSETRON INJ 4 MG/2 ML VIAL 8 MG IV PUSH (23:30)
[2021-04-23] VITALS (46 sets, daily range): BP systolic 98–123; BP diastolic 62–79; PULSE 100–143; TEMP 36.7–37.4; O2SAT 94–100
--- NOTE | 2021-04-23 00:10 | PC.NURSE ---
[id number]-Pt's came to the desk stating she is saying she is hungry. I asked pt if she felt better and wanted to go home and she said no she just wants to try some broth and ice chips. Before pt could drink anything she vomited a large amount. Meds given, pt is going to try to sleep
--- NOTE | 2021-04-23 03:42 | PC.NURSE ---
pt sleeping. woke up with nurse in room. pt requesting ice chips. pt states that she is still nauseous but is wanting some ice chips. ice chips given to pt. no other complaints. pt went back to sleep
--- NOTE | 2021-04-23 07:54 | PM.IMHP ---
H&P: HPI History of Present Illness Date/Time: 04/23/21 07:54 Chief Complaint: N/V Narrative: Pt is a 40yo at 34w admitted with hyperemesis. Has had issues the whole but recently transferred to us. Was not tolerating any PO, had 2+ ketones. She reports feeling better this am, but not a lot. Last vomited at 5am. has tolerated some ice chips since. Had elevated BPs on admission, PIH labs wnl including PC ratio of 0.05. BPs normalized. This morning had episode of tachycardia. Improved now. Review of Systems Review of Systems: All systems reviewed & are unremarkable except as noted in HPI and below [facility] Past Medical History Medical History Back problem Hyperemesis gravidarum Surgical History Surgical History History of salpingectomy Social History Social History Smoking status: Never smoker Second hand tobacco smoke exposure: No Alcohol intake: never Alcohol use details: not currently Substance use: current Other substance usage details: Pt. 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 Gender identity (if verbalized by the patient): Female Sexual Orientation (if Verbalized by the Patient): Straight or Heterosexual Spiritual care concerns: No Meds Home Medications and Allergies Home Medications Medication Instructions Recorded Confirmed Type ondansetron 8 mg PO Q12H PRN 11/12/20 04/22/21 History doxylamine-pyridoxine (vit B6) 2 tablet PO Q12H 04/22/21 04/22/21 History promethazine 25 mg PO QID PRN 04/22/21 04/22/21 History Allergies Allergy/AdvReac Type Severity Reaction Status Date / Time No Known Allergies Allergy Verified 11/12/20 14:14 Vital Signs Vital Signs - 24 hr 04/22/21 14:44 04/22/21 15:01 04/22/21 15:15 Temperature 98 F Pulse Rate 91 90 91 Respiratory Rate 18 Blood Pressure 150/81 H 143/79 H 149/75 H Pulse Oximetry 04/22/21 15:30 04/22/21 16:04 04/22/21 16:15 Temperature Pulse Rate 91 84 88 Respiratory Rate Blood Pressure 129/80 138/74 133/72 Pulse Oximetry 04/22/21 16:30 04/22/21 16:45 04/22/21 17:00 Temperature Pulse Rate 96 98 85 Respiratory Rate Blood Pressure 134/67 136/74 129/76 Pulse Oximetry 04/22/21 17:15 04/22/21 17:30 04/22/21 17:45 Temperature Pulse Rate 99 95 106 H Respiratory Rate Blood Pressure 131/73 121/58 L 131/74 Pulse Oximetry 04/22/21 18:00 04/22/21 18:15 04/22/21 18:30 Temperature Pulse Rate 105 H 106 H 90 Respiratory Rate Blood Pressure 128/73 139/72 155/78 H Pulse Oximetry 04/22/21 19:00 04/22/21 19:15 04/22/21 19:30 Temperature Pulse Rate 100 98 112 H Respiratory Rate Blood Pressure 123/71 140/73 132/64 Pulse Oximetry 04/22/21 19:45 04/22/21 20:00 04/22/21 20:15 Temperature Pulse Rate 99 107 H 113 H Respiratory Rate Blood Pressure 148/74 H 116/78 133/67 Pulse Oximetry 04/22/21 20:31 04/22/21 20:33 04/22/21 21:00 Temperature Pulse Rate 114 H 100 95 Respiratory Rate Blood Pressure 134/116 H 134/82 139/88 Pulse Oximetry 04/22/21 22:00 04/22/21 23:05 04/23/21 00:00 Temperature Pulse Rate 125 H 141 H 116 H Respiratory Rate Blood Pressure 159/85 H 107/62 123/70 Pulse Oximetry 04/23/21 06:41 04/23/21 06:46 04/23/21 06:56 Temperature 99.3 F 98.1 F Pulse Rate 137 H 141 H Respiratory Rate Blood Pressure 104/64 105/72 Pulse Oximetry 04/23/21 06:58 04/23/21 07:00 04/23/21 07:03 Temperature Pulse Rate 134 H Respiratory Rate Blood Pressure 109/77 Pulse Oximetry 100 97 04/23/21 07:08 04/23/21 07:13 04/23/21 07:16 Temperature Pulse Rate 124 H Respiratory Rate Blood Pressure 113/79 Pulse Oximetry 97 97 04/23/21 07:18 02/16/22 07:23 04/23/21 07:2
[2021-04-23 08:00] LABS: Amphetamine Screen Urine Negative (Negative); Barbiturate Screen Urine Negative (Negative); Benzodiazepines Screen Urine Negative (Negative); Cannabinoid Screen Urine Positive (Negative); Cocaine Screen Urine Negative (Negative); Methadone Screen Urine Negative (Negative); Opiate Screen Urine Negative (Negative); Phencyclidine Screen Urine Negative (Negative)
[2021-04-23] MEDS: DEXTROSE 5%/0.45% SOD CHL 1,000 ML 125 ML IV CONT (08:27)
[2021-04-23 11:51] LABS: Basophils Percent Auto 0.2 % (0.2-1.2); Eosinophils Percent Auto 0.3 % (0-4.4); Hematocrit 29.5 % (37.0-47.0); Hemoglobin 9.6 g/dL (12.0-15.0); Immature Granulocyte Absolute 0.07 K/mm3 (0.00-0.031); Immature Granulocyte Percent A 0.8 % (0-0.5); Lymphocytes Absolute Auto 1.07 K/mm3 (0.9-3.2); Lymphocytes Percent Auto 11.8 % (18.3-44.2); Mean Corpuscular HGB Conc 32.5 g/dl (32-36); Mean Corpuscular Volume 92.2 fl (80-100); Mean Platelet Volume 9.3 fl (7.4-10.4); Monocytes Absolute Auto 0.5 K/mm3 (0.1-0.6); Monocytes Percent Auto 5.9 % (2.6-8.5); Neutrophils Absolute Auto 7.4 K/mm3 (1.3-6.7); Platelet Count Result 155 k/mm3 (150-375); Red Cell Distribution Width 14.3 % (11.5-14.5); White Blood Count 9.1 K/mm3 (4.5-10.0)
[2021-04-23 12:05] LABS: Anion Gap 5 mmol/L (8-16); Blood Urea Nitrogen 5 mg/dL (7-17); Calcium 8.3 mg/dL (8.4-10.2); Carbon Dioxide 22 mmol/L (22-30); Chloride 107 mmol/L (98-107); Estimated CRCL calculation 160 ml/min; Estimated Glomerular Filt Rate > 60; Glucose 121 mg/dL (65-110); Potassium 3.3 mmol/L (3.4-5.0); Sodium 134 mmol/L (137-145)
--- NOTE | 2021-04-23 12:27 | PC.NURSE ---
1217--Reported labs to Dr. Humphrey. Additional orders given.
[2021-04-23] MEDS: ACETAMINOPHEN 500 MG TABLET 1000 MG PO (13:12)
[2021-04-23] MEDS: POTASSIUM CHLORIDE 20 MEQ TABLET PO (13:12)
--- NOTE | 2021-04-25 12:31 | WPDOBADMIT ---
Obstetrics - Admit Note Admission Note: record reviewed. No pertinent additions to the history and/or any subsequent changes in the physical findings that are not consistent with the expected course of the were found. Additions to the history and/or subsequent changes in the physical findings follow. Admitted for PIH TRAVIS and hyperemesis. Treated with IVF and antiemetics, PIH labs were wnl and BPs normalized. SHe was discharged home on HD1 tolerating PO.
== END 2021-04-23 14:13 | disposition home or self-care (01) ==
LOC: ANHOBPP 04-25 10:35
PROVIDERS: Admitting Provider Obstetrics & Gynecology; PCP Family Medicine; Visit Provider Obstetrics & Gynecology
DX: O21.2 Late vomiting of pregnancy (principal); Z3A.33 33 weeks gestation of pregnancy
CPT/HCPCS: 36415; 80048; 80053; 80307; 81001; 82570; 84112; 84156; 84550; 85025; 87086; 87088; 96361; 96372; 96374; 96375; 96376; A9270; G0378; G0379; J2405; J2550; J2765; J7120; J7121

== ENCOUNTER 2021-05-05 12:31 | Observation (INO) | payer OTHER, SELFPAY ==
[2021-05-05] VITALS (44 sets, daily range): BP systolic 72–129; BP diastolic 41–92; PULSE 79–107; O2SAT 96–100
[2021-05-05 13:32] LABS: Basophils Percent Auto 0.3 % (0.2-1.2); Eosinophils Absolute Auto 0.1 K/mm3 (0-0.3); Eosinophils Percent Auto 0.9 % (0-4.4); Hematocrit 28.9 % (37.0-47.0); Hemoglobin 9.4 g/dL (12.0-15.0); Immature Granulocyte Absolute 0.09 K/mm3 (0.00-0.031); Immature Granulocyte Percent A 0.8 % (0-0.5); Lymphocytes Absolute Auto 1.75 K/mm3 (0.9-3.2); Lymphocytes Percent Auto 14.7 % (18.3-44.2); Mean Corpuscular HGB Conc 32.5 g/dl (32-36); Mean Corpuscular Hemoglobin 29.3 pg (26-34); Mean Platelet Volume 9.5 fl (7.4-10.4); Monocytes Absolute Auto 0.8 K/mm3 (0.1-0.6); Monocytes Percent Auto 6.5 % (2.6-8.5); Neutrophils Absolute Auto 9.2 K/mm3 (1.3-6.7); Neutrophils Percent Auto 76.8 % (45.5-73.1); Platelet Count Result 177 k/mm3 (150-375); Red Blood Count 3.21 M/mm3 (4.2-5.4); White Blood Count 11.9 K/mm3 (4.5-10.0)
[2021-05-05 13:42] LABS: Alanine Aminotransferase 14 U/L (4-35); Albumin Level 3.1 g/dL (3.5-5.1); Alkaline Phosphatase 57 U/L (38-126); Anion Gap 4 mmol/L (8-16); Aspartate Amino Transferase 18 U/L (14-36); Bilirubin,Total 0.1 mg/dL (0.2-1.3); Blood Urea Nitrogen 8 mg/dL (7-17); Calcium 8.1 mg/dL (8.4-10.2); Carbon Dioxide 22 mmol/L (22-30); Chloride 110 mmol/L (98-107); Estimated Glomerular Filt Rate > 60; Glucose 74 mg/dL (65-110); Sodium 136 mmol/L (137-145); Uric Acid 4.7 mg/dL (2.5-7.5)
[2021-05-05 14:34] LABS: Add Urine Microscopic? YES; Appearance Urine Clear (Clear); Bilirubin Urine Negative (Negative); Blood Urine Negative (Negative); Color Urine Yellow (Yellow); Glucose Urine UA Negative (Negative); Ketones Urine 1+ mg/dL (Negative); Leukocyte Esterase Ur Negative LEU/UL (Negative); Nitrate Urine Negative (Negative); Protein Urine 2+ mg/dL (Negative); RBC Urine 0-2 /hpf (0-2); Specific Grav Ur 1.013 (1.001-1.035); Squamous Epithelial Cell Urine Rare /hpf (Few); Urobilinogen Urine Negative mg/dL (<2.0); WBC Urine 0-3 /hpf
[2021-05-05 15:26] LABS: Creatinine Urine 72.7 mg/dL; Total Protein Urine Random 93 mg/dL; Ur Ttl Prot Creatinine Ratio 1.28 mg/mg (0-0.20)
--- NOTE | 2021-05-05 15:57 | PC.NURSE ---
8807--Phone call to Dr. Etienne re: labs, v.s., fhr tracing. Orders to DC home with 24hr urine supplies and instructions.
--- NOTE | 2021-05-25 21:06 | PM.OBTRLD ---
OB - Triage/Final Diagnosis Visit Information Comments/Additional reasons for admission: I have assessed the risk for this patient, Elle Rayo, and determined that she would benefit from observation care. Evaluation Laboratory results: Laboratory Tests 05/05/21 05/05/21 05/05/21 13:20 13:20 13:20 WBC 11.9 H RBC 3.21 L Hgb 9.4 L Hct 28.9 L MCV 90.0 MCH 29.3 MCHC 32.5 RDW 14.0 Plt Count 177 MPV 9.5 Immature Gran % (Auto) 0.8 H Neut % (Auto) 76.8 H Lymph % (Auto) 14.7 L [place] % (Auto) 6.5 Eos % (Auto) 0.9 Baso % (Auto) 0.3 Lymph # (Auto) 1.75 [place] # (Auto) 0.8 H Eos # (Auto) 0.1 Baso # (Auto) 0.0 Abs Immat Gran (auto) 0.09 H Absolute Neuts (auto) 9.2 H Absolute Nucleated RBC 0.0 Nucleated RBC % 0.0 Sodium 136 L Potassium 4.0 Chloride 110 H Carbon Dioxide 22 Anion Gap 4 L BUN 8 Creatinine 0.50 L Estim Creat Clear Calc Not Reportable Estimated GFR > 60 Glucose 74 Uric Acid 4.7 Calcium 8.1 L Total Bilirubin 0.1 L AST 18 ALT 14 Alkaline Phosphatase 57 Total Protein 6.0 L Albumin 3.1 L Urine Color Yellow Urine Appearance Clear Urine pH 8.0 Ur Specific [place] 1.013 Urine Protein 2+ H Urine Glucose (UA) Negative Urine Ketones 1+ H Ur Blood (Man) Negative Urine Nitrate Negative Urine Bilirubin Negative Urine Urobilinogen Negative Leukocyte Esterase Rfl Negative Urine RBC 0-2 Urine WBC 0-3 Ur Squamous Epith Cells Rare U Random Total Protein Urine Creatinine Protein/Creat Ratio 2 05/05/21 13:20 WBC RBC Hgb Hct MCV MCH MCHC RDW Plt Count MPV Immature Gran % (Auto) Neut % (Auto) Lymph % (Auto) [place] % (Auto) Eos % (Auto) Baso % (Auto) Lymph # (Auto) [place] # (Auto) Eos # (Auto) Baso # (Auto) Abs Immat Gran (auto) Absolute Neuts (auto) Absolute Nucleated RBC Nucleated RBC % Sodium Potassium Chloride Carbon Dioxide Anion Gap BUN Creatinine Estim Creat Clear Calc Estimated GFR Glucose Uric Acid Calcium Total Bilirubin AST ALT Alkaline Phosphatase Total Protein Albumin Urine Color Urine Appearance Urine pH Ur Specific [place] Urine Protein Urine Glucose (UA) Urine Ketones Ur Blood (Man) Urine Nitrate Urine Bilirubin Urine Urobilinogen Leukocyte Esterase Rfl Urine RBC Urine WBC Ur Squamous Epith Cells U Random Total Protein 93 Urine Creatinine 72.7 Protein/Creat Ratio 2 1.28 H Final Diagnosis (1) Near syncope: Code(s): R55 - Syncope and collapse Status: Acute
== END 2021-05-05 15:45 | disposition home or self-care (01) ==
LOC: ANHOBOP 12:32 → ANHOBPP 12:32 → ANHOBOP 13:27 → ANHOBPP 13:27
PROVIDERS: Admitting Provider Obstetrics & Gynecology; PCP Family Medicine; Visit Provider Obstetrics & Gynecology
DX: O99.891 Other specified diseases and conditions complicating pregnancy (principal); R55 Syncope and collapse; Z3A.34 34 weeks gestation of pregnancy
CPT/HCPCS: 36415; 80053; 81001; 82570; 84156; 84550; 85025; G0378; G0379

== ENCOUNTER 2021-05-06 15:26 | Outpatient (NON) | payer OTHER, SELFPAY ==
[2021-05-06 15:42] VITALS: BMI 27.4
[2021-05-06 16:39] LABS: Collection Time Urine 24 HOURS
[2021-05-06 16:43] LABS: Patient Weight 175 Lbs; Total Volume 24 Hour Urine 1400 ml
[2021-05-06 16:52] LABS: Creatinine Clearance Urine 141.3 ml/min (75-125)
[2021-05-06 16:55] LABS: Total Protein Urine 24 Hr 70 mg/24hr (28-141); Total Protein Urine Random < 5 mg/dL
== END 2021-05-06 15:27 | disposition home or self-care (01) ==
LOC: ANHOBOP 15:27
PROVIDERS: PCP Family Medicine; Visit Provider Obstetrics & Gynecology
DX: O13.9 Gestational [pregnancy-induced] hypertension without significant proteinuria, unspecified trimester (principal); Z3A.00 Weeks of gestation of pregnancy not specified
CPT/HCPCS: 81050; 82575; 84156

== ENCOUNTER 2021-05-14 11:17 | Outpatient (CLI) | payer OTHER, SELFPAY | END 2021-05-14 11:18 | disposition home or self-care (01) | LOC: CHSAUDIO 11:19 | PROVIDERS: PCP Family Medicine; Visit Provider Family Medicine | DX: H91.90 Unspecified hearing loss, unspecified ear (principal) | CPT/HCPCS: 92557; 92567 ==

== ENCOUNTER 2021-05-19 12:52 | Outpatient (CLI) | payer OTHER, SELFPAY ==
[2021-05-19 13:38] LABS: Hematocrit 30.7 % (37.0-47.0); Hemoglobin 9.8 g/dL (12.0-15.0); Mean Corpuscular HGB Conc 31.9 g/dl (32-36); Mean Corpuscular Hemoglobin 28.8 pg (26-34); Mean Corpuscular Volume 90.3 fl (80-100); Mean Platelet Volume 10.5 fl (7.4-10.4); Platelet Count Result 205 k/mm3 (150-375); Red Cell Distribution Width 14.6 % (11.5-14.5)
[2021-05-20 08:53] LABS: Rapid Plasma Reagin Non-Reactive (NonReactive)
== END 2021-05-19 12:53 | disposition home or self-care (01) ==
LOC: ANHLAB 12:55
PROVIDERS: PCP Family Medicine; Visit Provider Obstetrics & Gynecology
DX: Z34.93 Encounter for supervision of normal pregnancy, unspecified, third trimester (principal); Z3A.00 Weeks of gestation of pregnancy not specified
CPT/HCPCS: 36415; 85027; 86592; 86850; 86900; 86901

== ENCOUNTER 2021-05-20 07:09 | Inpatient (IN) | payer OTHER, SELFPAY ==
[2021-05-20] VITALS (36 sets, daily range): BP systolic 82–140; BP diastolic 49–110; PULSE 59–114; RESP 16–18; TEMP 36.2–37.2; O2SAT 94–100; BMI 40.4
--- OUTSIDE RECORDS SUMMARY | 2021-05-20 07:13 | XMS_ITS | Encounter Summary ---
:1980 Author Reason for Visit OB visit Assessment and Plan Assessment Note Patient is ___weeks . Discu ssed plan. 1. Routine care Discussion Note: None recorded.Patient educational handouts: No information available. Plan of Care Reminders Provider Appointments Surg Post 05/26/2021 Jose Elias Holliday Op 11:00AM MD Jaimie Lab None ? ? recorded. Referral None ? ? recorded. Procedures None ? ? recorded. Surgeries None ? ? recorded. Imaging None ? ? recorded. Medications Name Start Date ? ? doxylamine 10 mg-pyridoxine (vit B6) 10 mg tablet,shirley yed release ? TAKE 2 TABLETS BY MOUTH TWICE A DAY omeprazole 40 mg capsule,delayed release ? ondansetron 8 mg disintegrating tablet ? DISSOLVE 1 TABLET BY MOUTH EVERY 8 HOURS NEEDED Vitamin ? Restasis 0.05 % eye drops in a dropperette ? INSTILL 1 DROP INTO EACH EYE TWICE DAILY Medications Administered None recorded. Vitals Height Weight BMI Blood Pressure 5 ft 7 in 257 lbs 40.3 kg/m2 124/82 mm[Hg] Results Lab Results None recorded. Allergies Code Code System Name Reaction Severity Onset NKDA ? ? ? Problems
--- OUTSIDE RECORDS SUMMARY | 2021-05-20 07:13 | XMS_ITS ---
:1980 Author Care Team Providers Name Role Phone Delio Etienne Mg Primary Care Provider Unavailable Allergies Code Code System Name Reaction Severity Status Onset NKDA ? Medications Name Status Start Date Stop Date ? ? amoxicillin 500 mg capsule Completed ? 04/17 azithromycin 250 mg tablet Completed ? 04/17 TAKE 2 TABLETS BY MOUTH TODAY, THEN TAKE 1 TABLET DAILY FOR 4 D AYS doxylamine 10 mg-pyridoxine (vit B6) 10 mg tablet,delayed releas e Active ? Not available TAKE 2 TABLETS BY MOUTH TWICE A DAY doxylamine 10.5 mg-phenylephrine 10 mg tablet Completed ? 04/03/2021 Take by oral route. FeroSul 325 mg (65 mg iron) tablet Completed ? 04/29/2021 furosemide 20 mg tablet Completed ? 04/29/19 22 hydrocodone 5 mg-acetaminophen 325 mg Completed ? 04/29/2021 tablet ibuprofen 600 mg tablet Completed ? 04/29/19 ibuprofen 800 mg tablet Completed ? 04/29/19 22 metoclopramide 10 mg tablet Completed ? 04/09 montelukast Completed ? 04/29/2021 montelukast 10 mg tablet Completed ? 022 norethindrone (contraceptive) 0.35 mg Completed ? 04/17/2021 tablet omeprazole 40 mg capsule,delayed Active ? Not available release ondansetron Completed ? 04/29/2021 ondansetron 8 mg disintegrating tablet Active ? Not available ondansetron HCl 4 mg tablet Completed ? 04/09 TAKE 2 TABLETS BY MOUTH EVERY 12 HOURS prednisone 20 m
--- OUTSIDE RECORDS SUMMARY | 2021-05-20 07:13 | XMS_ITS | Encounter Summary ---
:1980 Author Reason for Visit None recorded. Assessment and Plan 1. -induced hypertensio n ? non-stress test Discussion Note: None recorded.Patient educational handouts: No information available. Plan of Care Reminders Provider Appointments Surg Post 05/26/2021 Jose Elias Etienne, [place] 11:00AM Lab None ? ? recorded. Referral None ? ? recorded. Procedures None ? ? recorded. Surgeries None ? ? recorded. Imaging 05/19/2021 [place] Non-stress Test Medications Name Start Date ? ? doxylamine [...] TWICE DAILY Medications Administered None recorded. Vitals None recorded. Results Lab Results None recorded. Allergies Code Code System Name Reaction Severity Onset NKDA ? ? ? Problems Name Status Onset Date Source ? P
--- OUTSIDE RECORDS SUMMARY | 2021-05-20 07:14 | XMS_ITS | Encounter Summary ---
[...] BMI Blood Pressure 5 ft 7 in 242 lbs 37.9 kg/m2 (1) 148/81 mm[H g] (2) 140/94 mm[Hg ] Results Lab Results None recorded. Allergies Code Code System Name Reaction Severity Onset
--- OUTSIDE RECORDS SUMMARY | 2021-05-20 07:14 | XMS_ITS | Encounter Summary ---
:1980 Author Reason for Visit OB visit Assessment and Plan Assessment Note Patient is ___weeks . Discu ssed plan. 1. Deliveries by ? tubal ligation at time of (SURG) ? section (SURG) Discussion Note: None recorded.Patient educational handouts: No information available. Plan of Care Reminders Provider Appointments Surg Post Op Avis Holliday 05/26/2021 MD Jaimie 11:00AM Lab None ? ? recorded. Referral None ? ? recorded. Procedures None ? ? recorded. Surgeries Tubal Amadeo Hernandez rgery Ligation at Time of 05/20/2021 Jaimie (SURG) ? Amadeo Surgery Section (SURG) 05/20/2021 Jaimie Imaging None ? ? recorded. Medications Name [...] 1 DROP INTO EACH EYE TWICE DAILY Medicati
--- OUTSIDE RECORDS SUMMARY | 2021-05-20 07:14 | XMS_ITS | Encounter Summary ---
:1980 Author Reason for Visit new OB Assessment and Plan 1. Routine care Discussion Note: None recorded.Patient [...] BMI Blood Pressure 5 ft 7 in 230 lbs 36 kg/m2 116/71 mm[Hg] Results Lab Results None recorded. Allergies Code Code System Name Reaction Severity Onset NKDA ? ? ? Problems Name Status Onset Date Source ? [place]
--- OUTSIDE RECORDS SUMMARY | 2021-05-20 07:14 | XMS_ITS | Encounter Summary ---
:1980 Author Reason for Visit NST [id number] EDC 06/10/2021 LMP 08/20/2020 Assessment and Plan 1. -induced hypertensio n ? non-stress test Discussion Note: None recorded.Patient educational handouts: No information available. Plan of Care Reminders Provider Appointments Surg Post 05/26/2021 Jose Elias Etienne, [place] 11:00AM Lab None ? ? recorded. Referral None ? ? recorded. Procedures None ? ? recorded. Surgeries None ? ? recorded. Imaging 05/08/2021 [place] Non-stress Test Medications Name Start Date ? [...] BMI Blood Pressure 5 ft 7 in 249 lbs 39 kg/m2 118/78 mm[Hg] Results Lab Results None recorded. Allergies Code Code System Name Reaction Severity Onset NKDA ? ? ? Probl
--- OUTSIDE RECORDS SUMMARY | 2021-05-20 07:14 | XMS_ITS | Encounter Summary ---
:1980 Author Reason for Visit None recorded. Assessment and Plan 1. Elevated blood pressure Pt here in office with blood p ressure reading of 150/100 - upon putting pt on the NST monitor pt reports headaches, light headedness, and large spots in vision that she thought was just a vision issue , not related to elevated blood pressures. Upon removing pt of the monitor for a re active NST, pt had a syncopal episode that lasted approximately 30 seconds to a min [place]. Pt was sweating, dizzy, lightheaded, tingling in hands. Sat pt up, mask remov ed, advised to take some deep breaths, and pt then passed out. Pt came back too, [place] sats rebounded, pt drank some water, and rested. However, still feeling light headed, dizzy, and not well therefor EMS came to get pt. Report was given and L&D was informed of arrival with monitoring of baby and bp and PIH labs. No further question s. BG, RN ? non-stress test Discussion Note: None recorded.Patient educational handouts: No information available. Plan of Care Reminders Provider Appointments Surg Post 05/26/2021 Jose Elias Etienne, [place] 11:00AM Lab None ? ? recorded. Referral None ? ? recorded. Procedures None ? ? recorded. Surgeries None ? ? recorded. Imaging 05/05/2021 [place] Non-stress Test Medications Name Start Date ? ?
--- OUTSIDE RECORDS SUMMARY | 2021-05-20 07:14 | XMS_ITS | Encounter Summary ---
:1980 Author Reason for Visit NST [id number] EDC 06/10/2021 LMP 08/20/2020 Assessment and Plan 1. -induced hypertensio n ? non-stress test Discussion Note: None recorded.Patient educational handouts: No information available. Plan of Care Reminders Provider Appointments Surg Post 05/26/2021 Jose Elias Etienne, [place] 11:00AM Lab None ? ? recorded. Referral None ? ? recorded. Procedures None ? ? recorded. Surgeries None ? ? recorded. Imaging 05/12/2021 [place] Non-stress Test Medications Name Start Date ? [...] DAILY Medications Administered None recorded. Vitals Height BMI 5 ft 7 in 39.8 kg/m2 Results Lab Results None recorded. Allergies Code Code System Name Reaction Severity Onset NKDA ? ? ? Problems Name
--- OUTSIDE RECORDS SUMMARY | 2021-05-20 07:14 | XMS_ITS | Encounter Summary ---
:1980 Author Reason for Visit None recorded. Assessment and Plan 1. -induced hypertensio n ? US, obstetric, follow-up Discussion Note: None recorded.Patient educational handouts: No information available. Plan of Care Reminders Provider Appointments Surg Post 05/26/2021 Jose Elias Etienne, [place] 11:00AM Lab None ? ? recorded. Referral None ? ? recorded. Procedures None ? ? recorded. Surgeries None ? ? recorded. Imaging US, 05/12/2021 [place] [facility], Follow-up Medications Name Start Date ? ? doxylamine [...]
--- OUTSIDE RECORDS SUMMARY | 2021-05-20 07:14 | XMS_ITS | Encounter Summary ---
[...] BMI Blood Pressure 5 ft 7 in 254 lbs 39.8 kg/m2 130/84 mm[Hg] Results Lab Results None recorded. Allergies Code Code System Name Reaction Severity Onset NKDA ? ? ? Problems
--- OUTSIDE RECORDS SUMMARY | 2021-05-20 07:14 | XMS_ITS | Encounter Summary ---
:1980 Author Reason for Visit None recorded. Assessment and Plan 1. Chronic hypertension complica ting AND/OR reason for care during ? US, obstetric, follow-up Discussion Note: None recorded.Patient educational handouts: No information available. Plan of Care Reminders Provider Appointments Surg Post 05/26/2021 Jose Elias Etienne, [place] 11:00AM Lab None ? ? recorded. Referral None ? ? recorded. Procedures None ? ? recorded. Surgeries None ? ? recorded. Imaging US, 04/16/2021 [place] Obstetric, Follow-up Medications Name Start Date ? [...]
--- NOTE | 2021-05-20 07:31 | LDADM ---
This patient, Elle Rayo, was admitted to Labor/Delivery/Recovery 119 on 05/20/21 at 07:09. Plans for labor, pain management and were discussed with patient. Patient/family oriented to hospital policies and general routines including ID bracelet, bed and alarms, visiting hours, pain management, procedures, bathroom and other care routines, personal items, smoking policy, room service/diet and guest tray routines, infant security routines, and visiting hours. Patient/Family are encouraged to report perceived risks to care and to ask questions if they do not understand what they are told or what they should do. See OBIX for further documentation.
[2021-05-20] MEDS: LACTATED RINGERS 1,000 ML 125 ML IV CONT (07:44)
--- NOTE | 2021-05-20 07:51 | WPDANESEPPF ---
Anes - Initial Pre Proc Eval Procedure: Operation Date: 05/20/21 09:00 Proposed Procedures p Repeat Section with Bilateral Tubal Liagation - Brett Etienne MD Date/Time: 05/20/21 07:51 Surgeon: Brett Etienne MD Pre Op Diagnosis: repeat c- sec, desires sterilzation Patient Data Age: 40 Gender: F Height: 1.7 m Weight: 117 kg Last Vital Signs Pulse 106 H 05/20/21 07:36 BP 104/71 05/20/21 07:36 Allergies Allergy/AdvReac Type Severity Reaction Status Date / Time No Known Allergies Allergy Verified 11/12/20 14:14 Home Medications Medication Instructions Recorded Confirmed Type ondansetron 8 mg PO Q12H PRN 11/12/20 05/20/21 History doxylamine-pyridoxine (vit B6) 2 tablet PO Q12H 04/22/21 05/20/21 History promethazine 25 mg PO QID PRN 04/22/21 05/20/21 History omeprazole 40 mg PO BID 05/05/21 05/20/21 History Patient hx anesthesia problems: none Family hx anesthesia problems: none Results Review: All pre-operative results and documents have been reviewed as part of the pre-operative evaluation. [facility]LY [facility] Past Medical History Medical History Back problem Hyperemesis gravidarum Surgical History Surgical History History of salpingectomy Family History Family History (Updated 05/19/21 @ 12:33 by Blas Cadena RN) Other No pertinent family history Social History Social History Smoking status: Never smoker Second hand tobacco smoke exposure: No Alcohol intake: never Alcohol use details: not currently Substance use: current Other substance usage details: Pt. 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 Gender identity (if verbalized by the patient): Female Sexual Orientation (if Verbalized by the Patient): Straight or Heterosexual Spiritual care concerns: No Anes - Eval Final PreProcedure Day of Procedure 05/20/21 07:51 Patient weight: morbidly obese Heart: regular rate and rhythm Lungs: clear to auscultation and normal air movement Airway: Mallampati scale class II Neurological: alert and oriented Last oral intake: >/= 8 hours ASA classification: III Emergent: no Anesthetic plan: proceed Anesthesia type and monitoring: regional spinal and standard monitoring Results Review: All pre-operative results and documents have been reviewed as part of the pre-operative evaluation. Informed Consent: The patient's anesthetic plan and its attendant risks and benefits were discussed with the patient/family/POA. Questions were solicited and answers provided to the satisfaction of the patient/family/POA.
--- NOTE | 2021-05-20 08:52 | PM.IMHP ---
H&P: HPI History of Present Illness Date/Time: 05/20/21 08:52 This patient is a 40-year-old female presents for repeat delivery. She is a multiparous with a previous delivery. She also desires female sterilization. She understands that injuries may occur during the case that result in hospitalization, more surgery, severe illness. She denies any loss of fluid or vaginal bleeding. She denies any nausea, vomiting, fever chills. She denies any chest pain or shortness of breath. She understands there is risk of hemorrhage and infection. Chief Complaint: Term , Review of Systems Review of Systems: All systems reviewed & are unremarkable except as noted in HPI and below Constitutional: Constitutional: Denies chills, Denies fatigue, Denies fever(s) and Denies weakness Eyes: Eyes: Denies blurry vision, Denies change in vision, Denies loss of peripheral vision, Denies loss of vision, Denies other visual disturbances and Denies eye pain ENT: Denies vertigo, Denies dizziness, Denies hearing loss, Denies mouth pain, Denies nasal obstruction, Denies neck mass and Denies neck pain Cardiovascular: Cardiovascular: Denies chest pain, Denies diaphoresis, Denies syncope, Denies leg edema and Denies dyspnea Respiratory: Respiratory: Denies chest congestion, Denies cough, Denies hemoptysis, Denies dyspnea and Denies wheezing Gastrointestinal: Gastrointestinal: Denies abdominal pain, Denies constipation, Denies diarrhea, Denies nausea and Denies vomiting Genitourinary: Genitourinary: Denies hematuria, Denies change in libido, Denies nocturia, Denies genital lesions, Denies flank pain and Denies urinary urgency Musculoskeletal: Musculoskeletal: Denies abnormal gait, Denies back pain, Denies myalgias, Denies arthralgias, Denies joint swelling, Denies muscle weakness and Denies neck pain Integumentary/Breasts: Skin/Breast: Denies swelling, Denies breast pain, Denies breast mass, Denies dry skin, Denies nipple discharge, Denies unusual bruising and Denies jaundice Neurologic: Denies Neuro-related abnormal movements, Denies Abnormal speech present, Denies abnormal gait, Denies behavioral changes, Denies confusion, Denies vertigo, Denies dizziness, Denies syncope, Denies loss of vision, Denies memory loss, Denies convulsions and Denies weakness Psychiatric: Psychiatric: Denies abnormal sleep pattern, Denies behavioral changes, Denies change in libido, Denies confusion, Denies depression, Denies anhedonia and Denies memory loss Endocrine: Endocrine: Reports no additional endocrine complaints, Denies change in libido and Denies fatigue Hematologic/Lymphatic: Hematologic/Lymphatic: Reports no additional hematologic/lymphatic complaints Allergic/Immunologic: Allergic/Immunologic: Reports no additional allergic/immunologic complaints and Denies wheezing PMFSH Past Medical History Medical History Back problem Hyperemesis gravidarum Surgical History Surgical History History of salpingectomy Family History Family History (Updated 05/19/21 @ 12:33 by Blas Cadena RN) Other No pertinent family history Social History Social History Smoking status: Never smoker Second hand tobacco smoke exposure: No Alcohol intake: never Alcohol use details: not currently Substance use: current Other substance usage details: Pt. 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 Gender identity (if verbalized by the patient): Female Sexual Orientation (if Verbalized by the Patient): Straight or Heterosexual Spiritual care concerns: No Meds Home Medications and Allergies Home Medications Medication Instructions Recorded Confirmed Type ondansetron 8 mg PO Q12H PRN 11/12/20 05/20/21 History doxylamine-pyridoxine (vit B6) 2 tablet PO Q12H 04/22
--- NOTE | 2021-05-20 08:55 | WPDHPUPDATE1 ---
History and Physical Update Update Date/Time: 05/20/21 08:55 History and Physical has been reviewed, including an updated exam of the patient. There are NO changes in the patient's condition. Risks, benefits, and alternatives have been discussed and questions answered. Patient agrees to proceed with procedure.
[2021-05-20] MEDS: ceFAZolin 2 GM/D5W 50 ML 2 GM/50 ML BAG IVPB (08:57)
[2021-05-20 09:02] LABS: Amphetamine Screen Urine Negative (Negative); Barbiturate Screen Urine Negative (Negative); Benzodiazepines Screen Urine Negative (Negative); Cannabinoid Screen Urine Positive (Negative); Cocaine Screen Urine Negative (Negative); Methadone Screen Urine Negative (Negative); Opiate Screen Urine Negative (Negative); Phencyclidine Screen Urine Negative (Negative)
--- NOTE | 2021-05-20 10:00 | W.PM.PROC2 ---
Procedure Note - Detailed Date of Procedure 05/20/21 Pre-op Diagnosis repeat c- sec, desires sterilzation Post-op Diagnosis Same Procedure Performed Low-transverse section, Left Salpingectomy Surgeon Brett Etienne MD Anesthesia Spinal Findings Normal gestational maternal anatomy, average size infant, normal Apgars. Absent right fallopian Description of Procedure The patient was taken the operating room. She was prepped and draped in dorsal supine position with a leftward tilt. This was done after spinal anesthetic was applied. A low-transverse skin incision was made and carried down till of the fascia with the knife. The fascial incision was made with the knife. The fascial incision was extended laterally with Bartholomew scissors. The fascia was tented upward superiorly and inferiorly the rectus muscles were dissected off bluntly. The rectus muscles were the midline. The preperitoneal fat and peritoneum were dissected open bluntly at the superior aspect of the rectus muscles. The peritoneal incision was extended superior and inferior with good position of bladder. The uterine incision was made with a scalpel down to the level of the amniotic cavity. The amniotic cavity was entered bluntly. The infant was delivered. The cord was clamped and cut and the infant was handed off to waiting pediatric staff. Cord bloods were obtained. The placenta was removed manually. The uterus was exteriorized. The uterus was cleared of all clots, debris and membranes. The uterus was closed in 0 Vicryl running lock fashion. An imbricating over a was placed along the incision line as well. Each fallopian tube was grasped and raised with a Jet. With from the underlying venous structures. The mesosalpinx between the tube and the rest the adnexa was cauterized and transected with LigaSure cautery. It was performed from the distal tube near the ovary in a stepwise fashion towards the cornua. The tube at the cornua was cauterized transected with LigaSure cautery. This was performed in a bilateral fashion. The uterus was returned to the abdomen. The gutters were cleared of all clots and debris. The fascia was closed with 0 Vicryl running fashion. The subcutaneous tissue was irrigated pinpoint bleeders were cauterized. The skin was closed with subcuticular absorbable efrain. The skin incision line was covered with glue. The patient tolerated the procedure well. She has taken recovery room in stable condition. Sponge lap and needle counts were correct x2. Estimated Blood Loss 1,015 Complications No immediate complications Condition Stable Disposition PACU
[2021-05-20] MEDS: OXYTOCIN 30 UNITS/NS 500 ML 30 UNITS/500 ML BAG 125 UNITS IV CONT (11:38)
--- NOTE | 2021-05-20 13:20 | OBPPTRN ---
Patient transferred to post room #291 via stretcher. Support person present. Oriented to unit, room, information board, rooming in, admission packet and security measures. Patient verbalizes understanding. Baby did not accompany mother to the floor. Baby still in level 2 nursery downstairs.
[2021-05-20] MEDS: KETOROLAC 30 MG/ML VIAL (*BKC) IV PUSH (13:47)
[2021-05-20] MEDS: LORATADINE 10 MG TABLET PO (14:36)
--- NOTE | 2021-05-20 14:45 | PC.NURSE ---
Pt. taken downstairs per wheelchair to first floor nursery to see baby.
[2021-05-20] MEDS: DEXTROSE 5%/0.45% SOD CHL 1,000 ML 125 ML IV CONT (16:15)
--- NOTE | 2021-05-20 16:15 | PC.NURSE ---
Pt. downstairs in the first floor nursery visiting with baby who is on the monitors. Pt. sitting in a wheelchair, she denies pain at this time and declines coming back upstairs to bed. IV fluids changed.
--- NOTE | 2021-05-20 17:15 | PC.NURSE ---
Pt brought back up to room 291 per wheelchair, pt. walked to the bathroom and roberta care performed. pt. walked back to bed. call light within reach
[2021-05-20] MEDS: DOCUSATE SODIUM 100 MG CAPSULE PO (18:45)
[2021-05-21] MEDS: IBUPROFEN 600 MG TABLET PO ×3 (03:37→17:55)
[2021-05-21] MEDS: HYDROcodone/acetaminophen (*CRX) 10-325 MG TABLET 1 TAB PO ×2 (03:38→15:20)
[2021-05-21 04:00] VITALS: BP 113/70; PULSE 86; RESP 18; TEMP 37; O2SAT 99
[2021-05-21 05:36] LABS: Basophils Percent Auto 0.2 % (0.2-1.2); Eosinophils Absolute Auto 0.2 K/mm3 (0-0.3); Eosinophils Percent Auto 2.3 % (0-4.4); Hematocrit 24.9 % (37.0-47.0); Hemoglobin 8.1 g/dL (12.0-15.0); Immature Granulocyte Absolute 0.07 K/mm3 (0.00-0.031); Immature Granulocyte Percent A 0.7 % (0-0.5); Lymphocytes Absolute Auto 1.61 K/mm3 (0.9-3.2); Lymphocytes Percent Auto 15.5 % (18.3-44.2); Mean Corpuscular HGB Conc 32.5 g/dl (32-36); Mean Corpuscular Hemoglobin 28.9 pg (26-34); Mean Corpuscular Volume 88.9 fl (80-100); Mean Platelet Volume 10.7 fl (7.4-10.4); Monocytes Absolute Auto 0.9 K/mm3 (0.1-0.6); Monocytes Percent Auto 8.8 % (2.6-8.5); Neutrophils Absolute Auto 7.5 K/mm3 (1.3-6.7); Neutrophils Percent Auto 72.5 % (45.5-73.1); Platelet Count Result 176 k/mm3 (150-375); Red Cell Distribution Width 14.7 % (11.5-14.5); White Blood Count 10.4 K/mm3 (4.5-10.0)
[2021-05-21 07:45] VITALS: BP 127/73; PULSE 102; RESP 18; TEMP 37.7; O2SAT 98
--- NOTE | 2021-05-21 08:36 | PM.OBPNVD ---
OB - PN: Subj Subjective Date/time seen: 05/21/21 08:36 Patient comments: no complaints, pain well controlled, tolerating diet and flatus present OB - PN: Obj Data Labs CBC & Chem 7: 05/21/21 03:33 Labs: Laboratory Results - last 24 hr 05/20/21 05/21/21 08:40 03:33 WBC 10.4 H RBC 2.80 L Hgb 8.1 L Hct 24.9 L MCV 88.9 MCH 28.9 MCHC 32.5 RDW 14.7 H Plt Count 176 MPV 10.7 H Immature Gran % (Auto) 0.7 H Neut % (Auto) 72.5 Lymph % (Auto) 15.5 L [place] % (Auto) 8.8 H Eos % (Auto) 2.3 Baso % (Auto) 0.2 Lymph # (Auto) 1.61 [place] # (Auto) 0.9 H Eos # (Auto) 0.2 Baso # (Auto) 0.0 Abs Immat Gran (auto) 0.07 H Absolute Neuts (auto) 7.5 H Absolute Nucleated RBC 0.0 Nucleated RBC % 0.0 Urine Opiates Screen Negative Urine Methadone Screen Negative Ur Barbiturates Screen Negative Ur Phencyclidine Scrn Negative Ur Amphetamine Screen Negative U Benzodiazepines Scrn Negative Urine Cocaine Screen Negative U Cannabinoids Screen Positive A OB - PN A/P Plan day: 1 Comments: Post Op LTCS - no problems, routine recovery Time Spent With Patient Time: Total time spent is greater than 50% in coordination of care (as documented) at patient's floor/unit and/or counseling patient: Exam Const: General: cooperative, healthy appearing, comfortable and no acute distress Resp: Auscultation: no crackles, no rales, no rhonchi and no wheezes Cardio: Rhythm: regular rhythm Heart sounds: no click and no murmurs GI: Inspection: non-distended Auscultation: normal bowel sounds Extrem: General: normal to inspection, no pedal edema and no calf tenderness
--- NOTE | 2021-05-21 10:48 | PCCCNOTE ---
Addendum entered by NEHEMIAH Echeverria 05/21/21 12:22: Recvd email from [facility] that states: Your information has been reviewed and assessed by a Manager Care and was also approved by a supervisor leaf spring fabrication. The information you provided did not meet one of the criteria for an investigation (eligible victim, eligible perpetrator, eligible event, or jurisdiction). The information as been documented and will be kept on file. Should you learn of further information or have additional concerns, please feel free to contact us. MYCHAL Joyce aware. Original Note: Recvd notification that pt. tested positive for THC during urine drug screen. Baby girl's umbilical cord is pending. Pt. reports using THC due to nausea and appetite. Pt. denies any open DCFS cases, and states had an unfounded one in 2020 and not receiving any services from [facility]. Pt. and FOB/Spouse Bud reports baby girl will be living at home with them in [place], with their 13 month old son. 13 month old son is being cared for by FOYvonne Bud's brother and sister in law while mom and dad are in the hospital. Pt. reports having all necessary supplies for baby girl and has supportive people in her life. Pt. states established with both WIC/[employer] [place]. resources provided to pt. DCFS Report online # [id number]. MYCHAL Joyce updated.
--- NOTE | 2021-05-21 10:53 | WPDANLDNPN2 ---
Anes-Prog Note L&D-Neuraxial Date/Time: 05/21/21 10:53 Neuraxial medications: intrathecal PF morphine Opiod-related complaints: pruritis severe, treatment refractory Patient feedback: Patient satisfied with post-operative pain management.
--- NOTE | 2021-05-21 10:54 | WPDANLDPN2 ---
Anes-Prog Note L&D Date/Time: 05/21/21 10:54 Comfortable throughout: delivery and section Neuraxial method: spinal Epidural/Spinal procedure site: clean & non-tender Neuro status: Neuro function grossly intact. Cardiovascular status: normal Respiratory status: normal Airway patency: baseline Mental status: baseline Post-Op hydration status: normal Vital Signs: Last Vital Signs Temp 37.7 C H 05/21/21 07:45 Pulse 102 H 05/21/21 07:45 Resp 18 05/21/21 07:45 BP 127/73 05/21/21 07:45 Pulse Ox 98 05/21/21 07:45 Pain score (VAS): 03/17 I/O: Intake & Output 05/20/21 05/21/21 05/21/21 23:59 07:59 15:59 Intake Total 1380 200 Output Total 850 500 Balance 530 -300 Post-procedural complaints: none Patient feedback: Patient satisfied with anesthetic care.
[2021-05-21] MEDS: MULTIVIT/MIN/PREN/FOL AC/IRON TABLET 1 TAB PO (12:05)
[2021-05-21] MEDS: POLYSACCHARIDE IRON COMPLEX 150 MG CAPSULE PO ×2 (12:05→17:55)
[2021-05-21] MEDS: DOCUSATE SODIUM 100 MG CAPSULE PO ×2 (12:05→17:55)
--- NOTE | 2021-05-21 15:42 | PC.NURSE ---
1148 - 1215 Introductions made and consulted with patient to assess needs related to . Mother led conversation with her experience with feeding baby so far and has decided to supplement with formula due to a history of low milk production. Mother works well with her infant. Reviewed good handwashing when working with , breast, nipples and how to protect the nipples with a deep latch. Encouraged understanding the benefits of skin to skin, responding to feeding cues, frequencies of feeding 8-12 times in 24 hours (approximately 2-3 hours), duration of feedings, milk production, intake/output feeding sheet and signs of adequate intake. Discussed stimulating infant with skin to skin, hand expressing colostrum, touch and talking to to encourage eating at the breast. Reviewed positioning and alignment, supporting breast, off-centered (asymmetrical latch) and leading with the chin with big open wide gape. Infant latched optimally to the right breast in football position. Education given to mother of how to visualize suck/swallow ratios and drinking at the breast. Infant was able to maintain latch without discomfort to mother. Nipple care reviewed with optimal latching. Discussed the risk to as it pertains to medications, drugs, smoking, and the effects on milk production. Resources used to facilitate learning were used from the visual handout/mom and baby guide. Mother voiced understanding responding to feeding cues, may need to stimulating infant approximately 2-3 hours from the start of the last feeding, calling for assistance if the does not latch or there discomfort . Reported to primary RN.
[2021-05-21 19:50] VITALS: BP 107/62; PULSE 88; RESP 18; TEMP 36.9; O2SAT 98
[2021-05-22] MEDS: IBUPROFEN 600 MG TABLET PO (04:36)
[2021-05-22] MEDS: HYDROcodone/acetaminophen (*CRX) 10-325 MG TABLET 1 TAB PO ×2 (04:36→09:11)
[2021-05-22 08:40] VITALS: BP 133/88; PULSE 93; RESP 16; TEMP 36.6; O2SAT 100
--- NOTE | 2021-05-22 08:48 | PM.OBPNVD ---
OB - PN: Subj Subjective Date/time seen: 05/22/21 08:48 Patient comments: no complaints, pain well controlled, incisional pain, tolerating diet and flatus present OB - PN: Obj Data Labs CBC & Chem 7: 05/21/21 03:33 OB - PN A/P Plan day: 2 Plan: routine care Comments: POD#2 LTCS - no problems, Time Spent With Patient Time: Total time spent is greater than 50% in coordination of care (as documented) at patient's floor/unit and/or counseling patient: Exam Const: General: comfortable, no acute distress and alert Resp: Effort & Inspection: normal respiratory effort Auscultation: no crackles, no rales and no rhonchi Cardio: Rate: regular rate Heart sounds: no click, no murmurs and no rubs GI: Inspection: non-distended GI Palp: No Tenderness to palpation present (GI) Auscultation: normal bowel sounds Other: Incision - CDI Extrem: General: normal to inspection, no pedal edema and no calf tenderness
--- NOTE | 2021-05-22 08:48 | PM.OBDSVD ---
DS: Admitting Diagnosis Discharge Date May 22, 2021 Admitting Diagnosis term gestation DS: Discharge Diagnosis Discharge Diagnosis (1) Previous delivery, delivered: Code(s): O34.219 - Maternal care for unspecified type scar from previous delivery Status: Acute OB - DS: Summary OB Procedures : None OB Procedures Intrapartum: OB Procedures: : None Peripartum Data Procedures: Procedures Operation Date: 05/20/21 09:00 Actual Procedure Side Surgeon p Repeat Section with Bilateral Tubal Liagation Brett Etienne MD Time Spent with Patient Time attestation: Total time spent providing and/or coordinating discharge services: DS: Data Data Completed and Pending Pending studies at discharge: Pending at discharge 05/20/21 10:13 Surgical [PTH] Routine Discharge Plan Discharge Discharging Clinician: Brett Etienne Patient Disposition: Home, Self-Care Activity: pelvic rest Diet: regular Patient Instructions: Antibiotic Form Stand Alone Forms: General Discharge Information Follow-up/Referrals: Brett Etienne MD [Physician] - Discharge Medications: New hydrocodone-acetaminophen 5-325 mg tablet 1 tablet PO Q4H PRN (Reason: pain) Qty: 25 RF: 0 Continued ondansetron 8 mg tablet,disintegrating 8 mg PO Q12H PRN (Reason: Nausea) RF: 0 promethazine 25 mg tablet 25 mg PO QID PRN (Reason: Nausea And Vomiting) RF: 0 doxylamine-pyridoxine (vit B6) 10-10 mg tablet,delayed release (DR/EC) 2 tablet PO Q12H RF: 0 omeprazole 40 mg Capsule,Delayed Release(Dr/Ec) 40 mg PO BID RF: 0 Date of admission: 05/20/21 07:09 Primary Care Provider: Carlos,Johanna Hylton Admitting Provider: Brett Etienne Attending physician on admission: Brett Etienne Condition: Stable
[2021-05-22] MEDS: POLYSACCHARIDE IRON COMPLEX 150 MG CAPSULE PO (09:11)
[2021-05-22] MEDS: MULTIVIT/MIN/PREN/FOL AC/IRON TABLET 1 TAB PO (09:11)
[2021-05-22] MEDS: DOCUSATE SODIUM 100 MG CAPSULE PO (09:11)
--- NOTE | 2021-05-22 10:50 | PC.NURSE ---
Mother is ready for d/c and receiving d/c instructions from RN. Pt denies any soreness to nipples at this time. Lanolin given for home use if needed. No latch seen at this time. is down 5.2% and has adequate voids, stools, and no jaundice issues at this time. Mother states she had an issue with low supply with 13 month old son and it runs in her family also. Mother is offering the breast and chooses to supplement with formula. Educated regarding early instruction of formula and low milk supply. Dc resources and education provided regarding transition from colostrum to milk at day 3-5 with appropriate frequency of stimulation. Mother states she has a pump and knows how to hand express also. Mother verbalized understanding of education provided.
== END 2021-05-22 10:59 | disposition home or self-care (01) | DRG 540 ==
LOC: ANHLDR 07:16 → ANHOB2 13:38
PROVIDERS: Admitting Provider Obstetrics & Gynecology; PCP Family Medicine; Visit Provider Obstetrics & Gynecology
PROC: 10D00Z1 Extraction of Products of Conception, Low, Open Approach (ICD-10-PCS; CPT 59514; principal; 2021-05-20 09:00)
DX: O34.219 Maternal care for unspecified type scar from previous cesarean delivery (principal); Z30.2 Encounter for sterilization; O13.4 Gestational [pregnancy-induced] hypertension without significant proteinuria, complicating childbirth; O99.824 Streptococcus B carrier state complicating childbirth; Z3A.37 37 weeks gestation of pregnancy; Z37.0 Single live birth
CPT/HCPCS: 36415; 80307; 85025; 88302; 88307; A9270; J0131; J0690; J1885; J2274; J2370; J2590; J7120

== ENCOUNTER 2021-12-19 17:35 | Emergency (ER) | payer OTHER, SELFPAY ==
--- NOTE | ~2021-12-19 | XR_ITS ---
EXAMINATION: XR forearm LT 2V INDICATION: Left forearm pain, initial encounter TECHNIQUE: Two views of the left forearm are obtained. COMPARISON: None available FINDINGS: There is an acute, traumatic, closed, oblique fracture of the distal ulna with one cortical width of dorsal displacement at the fracture site. Soft tissue swelling is seen near the fracture. N o additional fracture is identified. Alignment at the elbow is normal. IMPRESSION: 1. Minimally displaced oblique fracture of the distal ulna. Reviewed, dictated and finalized at location F.
[2021-12-19 17:44] VITALS: BP 112/66; PULSE 96; RESP 18; TEMP 37; O2SAT 95
[2021-12-19 17:46] VITALS: BP 112/66; PULSE 92; RESP 20; TEMP 36.7; O2SAT 98
--- NOTE | 2021-12-19 17:51 | PC.NURSE ---
In with Dr. Otero for female pt examination.
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
[2021-12-19] MEDS: HYDROcodone/acetaminophen (*CRX) 5-325 MG TABLET 1 TAB PO (18:54)
[2021-12-19 19:13] VITALS: BP 97/60; PULSE 81; RESP 20; TEMP 36.7; O2SAT 98
== END 2021-12-19 19:16 | disposition home or self-care (01) ==
PROVIDERS: Emergency Provider Emergency Medicine; PCP Family Medicine
DX: S52.692A Other fracture of lower end of left ulna, initial encounter for closed fracture (principal); V89.2XXA Person injured in unspecified motor-vehicle accident, traffic, initial encounter
CPT/HCPCS: 29125; 73090; 99284; A4565; A9270

== ENCOUNTER 2024-04-07 19:34 | Emergency (ER) | payer SELFPAY ==
--- NOTE | ~2024-04-07 | XR_ITS ---
EXAMINATION: XR knee LT min 4V DATE: 04/07/2024 23:25 INDICATION: Left knee pain. Fall. TECHNIQUE: 4 views of left knee were obtained. COMPARISON: None. FINDINGS: Alignment is normal. No fracture. There is mild osteoarthritis of lateral and patellofemora l compartments. There is a moderate-sized knee joint effusion. IMPRESSION: 1. Mild left knee osteoarthritis. 2. Moderate-sized left knee joint effusion. Reviewed, dictated and finalized at location A. 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
[2024-04-07 19:35] VITALS: BP 152/97; PULSE 92; RESP 18; TEMP 36.8; O2SAT 98
--- OUTSIDE RECORDS SUMMARY | 2024-04-07 19:37 | XMS_ITS | Data Portability ---
Author Organization [facility] Address [address] [place] [address] [place] [address] Assessment Encounter Date Assessment Date Assessment LastModified by Organization Details LastModified Time 05/12/2021 05/12/2021 Patient is ___weeks . Discussed plan. Not available 05/12/2021 12:12:20 05/19/2021 05/19/2021 Patient is ___weeks . Discussed plan. Not available 05/19/2021 12:57:29 Plan of Treatment Reminders Order Date Submit Date Provider Last Modified By Organization Details Last Modified Time Details Appointments None record ed. Lab None record ed. Referral None record ed. Procedures None record ed. Surgeries None record ed. Imaging non-st ress test 022 05/13/19 22 [email or web address], [address], [place], [address], 12:03:37 non-st ress test 022 05/20/19 22 [email or web address] [address], [address], [place], [address], 13:02:33 Medication Orders None record ed. Patient TargetsNo targets recorded. Patient InstructionsNo instructions recorded. Reason for Referral None Reported. Results Created Date Observation Date Name Description Value Unit Range Abnormal Flag Note LastModifiedBy Organization Detail LastModifiedTime 05/13/19 22 05/12/2021 CULTU RE: GROUP B STREP SCREE N, REFLE X SUSCE PTIBI LITY result report SEE RESULT S BELOW abnormal Test: Cultu re: Group B Strep , Refle x Susce ptibi lity ([facility]/ [facility]/K H/[facility] ) Speci men Sourc e: Vagin a/Rec olegario Speci men Type: Vagin al/Re ctal Speci men Date: 022 1:49 PM Resul t Date: 2021 5:06 PM Resul t Statu s: Edite d Resul t - FINAL Abnor mal: Yes Resul ting Lab: [facility] [address] [facility] [address] Tel: CULTU RE ----- ----- ----- --- Posit baldomero for Strep tococ cus agala ctiae (Grou p B) (Abno rmal) Clind amyci n = resis tant, eryth romyc in = resis tant. Cefaz omari may be used for intra partu m proph ylaxi s in penic illin -martínez rgic women at low risk, and Vanco mycin is recom lawanda d for women at high risk for anaph ylaxi s. Susce ptibi lity testi ng is not neces faith for these drugs . Not Available [facility] (Lab) [address], [place], [address], 05/17/2021 18:09:16 04/16/19 22 04/16/2021 US, obste tric, follo w-up No observ ation record ed. [email or web address] [place] [address], [place], [address], 04/16/2021 18:03:07 04/16/19 22 04/16/2021 US, obste tric, follo w-up No observ ation record ed. [email or web address] [address], [place], [address], 04/17/2021 10:46:37 05/05/19 22 05/05/2021 non-s tress test No observ ation record ed. [email or web address] [address], [place], [address], 05/05/2021 13:23:30 05/09/19 22 05/08/2021 non-s tress test No observ ation record ed. [email or web address] [address], [place], [address], 05/08/2021 22:40:17 05/13/19 22 05/12/2021 non-s tress test No observ ation record ed. [email or web address] [address], [place], [address], 05/12/2021 21:53:59 05/13/19 22 05/12/2021 US, obste tric, follo w-up No observ ation record ed. [email or web address] [address], [place], [address], 05/12/2021 14:06:48 05/13/19 22 05/12/2021 US, obste tric, follo w-up No observ ation record ed. [email or web address] [facility], [place], [address], 05/13/2021 10:11:13 05/20/19 22 05/19/2021 non-s tress test No observ [facility]ion [facility] ed. [email or web address] [address], [place], [address], 05/19/2021 21:37:01 Result Notes None recorded. Problems Name Problem SNOMED Code Status Onset Date Resolution Date Notes Provider Name and Address Organization Details Recorded Time Pregnanc y 01165425 Completed 202106/02/2021 Argentina rucker [place], [place] - [facility] 12:54:22 Female steriliz ation Completed Argentina austinl null, [facility] 2 12:54:19 Pregnanc y-induce d hyperten kassy 88518645 Completed admitted for severe range pressures , got a course of steroids. Pressures resolved during that period of observati on. Argentina Bonilla ehl null, [facility] 2 12:54:19 Deliveri es by [id number] Completed repeat LTCS 05/20 u/s High Tranverse Argentina Bonilla ehl null, [facility] 2 12:54:19 Hypereme sis 670582010 Completed Zofran and doxylamin e Argentina Bonilla ehl null, [facility] 2 12:54:19 Anemia 679085202 Completed 2021 To start slowfe daily 1 tab Argentina austinl null, [facility] 2 12:54:19 Hypoglyc emia 079799619 Completed Argentina austinl null, [facility] 2 12:54:19 Problem Notes None recorded. Procedures Surgical History Date Name Laterality Status Provider Name and Address Organization Details Recorded Time 2 SECTION (SURG) completed [facility] 05/21/2021 10:27:18 2 SECTION (SURG) completed [facility] 05/21/2021 10:27:11 1 Date of Last Pap Smear completed Lucy Beauchamp [facility] 04/28/2021 11:54:04 Breast Biopsy completed Madeleine Escalante [facility] 05/12/2021 12:02:00 Imaging Results Imaging Date Name Status LastModified by Jessica bhat Details LastModified Time 04/16/2021 US, obstetric, follow-up completed [email or web address] [address], [place], [address], 04/16/2021 18:03:07 04/16/2021 US, obstetric, follow-up completed [email or web address] [address], [place], [address], 04/17/2021 10:46:37 05/05/2021 non-stress test completed [email or web address] [address], [place], [address], 05/05/2021 13:23:30 05/08/2021 non-stress test completed [email or web address] [address], [place], [address], 05/08/2021 22:40:17 05/12/2021 non-stress test completed [email or web address] [address], [place], [address], 05/12/2021 21:53:59 05/12/2021 US, obstetric, follow-up completed [email or web address] [address], [place], [address], 05/12/2021 14:06:48 05/12/2021 US, obstetric, follow-up completed [address], [place], [address], 05/13/2021 10:11:13 05/19/2021 non-stress test completed [email or web address] [place] [facility] [address], [place], [address], 05/19/2021 21:37:01 Procedure Notes None recorded. Medical Equipment None Reported. Allergies No known drug allergies Medications Name Sig Start Date Stop Date Status Note LastModified by Organization Details LastModified Time amoxicillin 500 mg capsule 04/17 completed Not Available Not Available Not Available azithromyci n 250 mg tablet TAKE 2 TABLETS BY MOUTH TODAY, THEN TAKE 1 TABLET DAILY FOR 4 DAYS 04/17 completed Not Available Not Available Not Available ibuprofen 800 mg tablet 04/29 completed Not Available Not Available Not Available hydrocodone 5 mg-acetamin ophen 325 mg tablet Take 1 tablet every 6 hours by oral route. active Not Available Not Available No t Available ondansetron HCl 4 mg tablet TAKE 2 TABLETS BY MOUTH EVERY 12 HOURS 04/29 completed Not Available Not Available Not Available prednisone 20 mg tablet TAKE 2 TABLETS BY MOUTH EVERY DAY 04/29 completed Not Available Not Available Not Available omeprazole 40 mg capsule,del ayed release TAKE 1 CAPSULE BY MOUTH TWICE A DAY active Not Available Not Available No t Available ondansetron 8 mg disintegrat ing tablet DISSOLVE 1 TABLET BY MOUTH EVERY 8 HOURS NEEDED active Not Available Not Available No t Available promethazin e 25 mg tablet TAKE 1 (ONE) TABLET BY MOUTH FOUR TIMES DAILY, NEEDED 04/29 completed Not Available Not Available Not Available montelukast 10 mg tablet TAKE 1 TABLET BY MOUTH EVERY DAY 04/29 completed Not Available Not Available Not Available furosemide 20 mg tablet 04/29 completed Not Available Not Available Not Available ibuprofen 600 mg tablet 04/29 completed Not Available Not Available Not Available norethindro ne (contracept baldomero) 0.35 mg tablet TAKE 1 TABLET BY MOUTH EVERY DAY 04/17 completed Not Available Not Available Not Available metoclopram sherry 10 mg tablet TAKE 1 TABLET BY MOUTH THREE TIMES A DAY 04/29 completed Not Available Not Available Not Available Restasis 0.05 % eye drops in a dropperette INSTILL 1 DROP INTO EACH EYE TWICE DAILY active Not Available Not Available No t Available montelukast 04/29 completed Not Available Not Available Not Available promethazin e 04/28 completed Not Available Not Available Not Available ondansetron 04/29 completed Not Available Not Available Not Available Vitamin active Not Available Not Available Not Available doxylamine 10 mg-pyridoxi ne (vit B6) 10 mg tablet,shirley yed release TAKE 2 TABLETS BY MOUTH TWICE A DAY active Not Available Not Available No t Available FeroSul 325 mg (65 mg iron) tablet 04/29 completed Not Available Not Available Not Available doxylamine 10.5 mg-phenylep hrine 10 mg tablet Take by oral route. 04/03 completed Not Available Not Available Not Available Vitals Date Recorded Body height Body mass index (BMI) Provider Name and Address Organization Details Last Updated DateTime 05/12/2021 170.18 cm 39.8 kg/m2 Madeleine Escalante [facility] 05/12/2021 12:01:43 Date Recorded Body height Body mass index (BMI) Body weight Systolic blood pressure Diastolic blood pressure Provider Name and Address Organization Details Last Updated DateTime 05/12/2021 170.18 cm 39.8 kg/m2 352492.4 6198 g 130 mm[Hg] 84 mm[Hg] [facility] 12:12:39 Date Recorded Body height Body mass index (BMI) Systolic blood pressure Diastolic blood pressure Provider Name and Address Organization Details Last Updated DateTime 05/19/2021 170.18 cm 40.3 kg/m2 124 mm[Hg] 82 mm[Hg] [facility] 05/19/2021 12:58:42 Date Recorded Body weight Provider Name an d Address Organization Details Last Updated DateTime 05/19/2021 057919.25650 g Delio Etienne MD [address], [place], [address] [place] [address], P.C[facility] 05/19/2021 14:24:42 Social History Question Answer Notes LastModified by Organizat ion Details LastModified Time Tobacco Smoking Status Never Smoker [email or web address] 05/19/2021 12:10:11 Do You Have An Advance Directive? No Information n ot available 04/28/2021 What Is Your Level Of Alcohol Consumption? None [email or web address] Information not available 05/19/2021 Are You Blind Or Do You Have Difficulty Seeing? No Information n ot available 04/28/2021 What Is Your Level Of Caffeine Consumption? Moderate [email or web address] Information not available 05/19/2021 How Much Tobacco Do You Chew? None [email or web address] Information not available 05/19/2021 In The 14 Days Before Symptom Onset, Have You Had Close Contact With A Laboratory-confirm ed COVID-19 While That Case Was Ill? No Information n ot available 04/28/2021 In The 14 Days Before Symptom Onset, Have You Had Close Contact With A Person Who Is Under Investigation For COVID-19 While That Person Was Ill? No Information not available 04/28/2021 Have You Been To An Area Known To Be High Risk For COVID-19? No Information not available 04/28/2021 Are You Deaf Or Do You Have Serious Difficulty Hearing? No Information not available 04/28/2021 What Type Of Diet Are You Following? REGULAR [email or web address] Information n ot available 05/19/2021 What Is The Highest Grade Or Level Of School You Have Completed Or The Highest Degree You Have Received? NZ26449-8 [email or web address] Information not available 05/19/2021 Are There Any Guns Present In Your Home? No Information not available 04/28/2021 Do You Use Protection During Sex? No [email or web address] Information not available 05/19/2021 Do You Use Your Seat Belt Or Car Seat Routinely? Yes Information not available 04/28/2021 Do You Have Smoke And Carbon Monoxide Detectors In Your Home? Yes Information not available 04/28/2021 How Much Tobacco Do You Smoke? No [email or web address] Information not available 05/19/2021 Do You Feel Stressed (tense, Restless, Nervous, Or Anxious, Or Unable To Sleep At Night)? [id number] Information not available 05/12/2021 Do You Use Any Illicit Or Recreational Drugs? No Information not available 04/28/2021 Do You Use Sunscreen Routinely? Yes Information not available 04/28/2021 Have You Used IV Drugs? No Information not available 04/28/2021 Sex: Unknown Functional Status Question Answer Note LastModified by Organization D etails LastModified Time Are you able to walk? [email or web address] Information not available 04/28/2021 What is your exercise level? None [email or web address] Information not available 05/19/2021 Mental Status None recorded. Family History Relationship Description Onset Age of this Age Resolved Age Notes LastModified by Organization Details LastModified Time Maternal Grandfather Diabetes mellitus Not available 2021 17:20:04 Maternal Grandmother Malignant tumor of cervix Not available 2021 17:20:25 Maternal Grandmother Malignant tumor of stomach [email or web address] Not available 2021 12:10:10 Medical History Condition Response Anxiety Disorder Y Allergies (Food, seasonal, environmental ) Y Gynecological History Statement/Question Response Date of LMP 08/20/2020 On BCP's at Conception? N N Was last menstrual period normal Y STIs/STDs N HPV Vaccine N Duration of Flow (days) 4 Current Control Method Age at First Child 39 Frequency of Cycle (Q days) 28-30 Sexually Active? Y Age of first menstrual cycle 17 Date of Last Pap Smear 04/14/2020 Sexual Problems? N Desired Control Method Sterilizati on N Obstetrics History GPAL:G 3 P 1 1 1 2 Type Value Full Term 1 Spontaneous 1 Premature 1 Living 2 Total 3 Past Encounters Encounter ID Performer Location Encounter Start Date Encounter Closed Date Diagnosis/Indication Diagnosis SNOMED-CT Code Diagnosis ICD10 Code Diagnosis Note [id number] Delio Etienne MD [place] [address] [address] 04/03/2021 16:04:14 04/04/2021 09:30:14 Routine care 808215685 Z34.93 [id number] Ping Yap [place] [address] [place] [address] 04/16/2021 16:20:01 04/16/2021 18:15:16 Chronic hypertension complicating AND/OR reason for care during 21340684 O10.013 Z3A.32 [id number] Delio Etienne MD [place] [address],[place] [address] 04/17/2021 14:07:42 04/17/2021 14:56:08 Deliveries by [id number] O82 [id number] Delio Etienne MD [place] [address],[place] [address] 04/28/2021 11:43:42 04/28/2021 12:19:06 Routine care 755090379 Z34.93 [id number] Delio Etienne MD [place] [address],[place] [address] 05/05/2021 12:01:24 05/05/2021 12:43:23 delivery - delivered 084723690 O82 - induced hypertension 71693811 O13.9 [id number] Pretty Jacinto [place] [address],[place] [address] 05/05/2021 13:22:00 05/05/2021 13:57:51 Increased blood pressure 22095741 R03.0 Pt here in office with blood pressure reading of 150/100 - upon putting pt on the NST monitor pt reports headaches, light headedness , and large spots in vision that she thought was just a vision issue, not related to elevated blood pressures. Upon removing pt of the monitor for a reactive NST, pt had a syncopal episode that lasted approximat vidal 30 seconds to a minute. Pt was sweating, dizzy, lightheade d, tingling in hands. Sat pt up, mask removed, advised to take some deep breaths, and pt then passed out. Pt came back too, oxygenatio n sats rebounded, pt drank some water, and rested. However, still feeling lightheade d, dizzy, and not well therefor EMS came to get pt. Report was given and L&D was informed of arrival with monitoring of baby and bp and PIH labs. [place] [id number] Madeleine Escalante [place] [address],[place] [address] 05/08/2021 12:00:38 05/08/2021 13:00:47 -induced hypertension 53344418 O13.9 [id number] Delio Etienne MD [place] [address],[place] [address] 05/12/2021 11:30:10 05/12/2021 13:07:54 Routine care 071727661 Z34.93 [id number] Madeleine Escalante [place] [address],[place] [address] 05/12/2021 11:30:48 05/12/2021 12:01:05 -induced hypertension 32293145 O13.9 [id number] Nithya Sanchez [place] [address],[place] [address] 05/12/2021 11:31:14 05/12/2021 13:08:14 -induced hypertension 56946549 O13.3 Z3A.35 [id number] Delio Etienne MD [place] [address],[place] [address] 05/19/2021 12:09:40 05/19/2021 14:36:44 Routine care 444050265 Z34.93 [id number] [place] Pate [place] [address],[place] [address] 05/19/2021 12:10:07 05/19/2021 13:02:33 -induced hypertension 64625675 O13.3 Z3A.35 Health Concerns Section Related Observation LastModified by Organization Detai ls LastModified Time None Recorded Concern Status LastModified by Organization Details LastModified Time None Recorded Advance Directives Directive N: Payers Encounter Date Sequence Insurance Name Policy Number Policy Barillas Covered Member ID Barillas Member ID Guarantor Name 05/12/2021 1 [facility] - DOS ON OR AFTER 20 (MEDICAID REPLACEMENT - HMO) Elle Rayo [id number] Elle Rayo 05/12/2021 1 [facility] - DOS ON OR AFTER 20 (MEDICAID REPLACEMENT - HMO) Elle Rayo [id number] Elle Rayo 05/19/2021 1 [facility] - DOS ON OR AFTER 20 (MEDICAID REPLACEMENT - HMO) Elle Rayo [id number] Elle Rayo 05/19/2021 1 [facility] - DOS ON OR AFTER 20 (MEDICAID REPLACEMENT - HMO) Elle Rayo [id number] Elle Rayo OBGyn Episode Ob Episode Information Episode Created Date Number of Fetuses Patient Bloodtype Patient rh Status Prepregnancy Weight lbs Domestic Partner Domestic Partner Phone Father Name Acquisition Professional Status 04/03/19 22 1 CLOSED Fetus Data First Name Last Name Admitted to NICU Weight (g) Sex Living Outcome Pediatric Complications Fetus ID Race Codes Race Delivery Type 2125.98 5704 M Prematur e 53287 Primary Ced Calculation Initial Ced Date Initial Exam Date Initial Exam Provider Initial Ultrasound Date Last Menstrual Period Date Ultra Sound Weeks Gestation 0 Eighteen To Twenty Week Ced Update Ultra Sound Date Fundal Height At Umbil Quickening Date Ultra Sound Latest Weeks Gestation Final Ced Confirmed By Final Ced Confirmed Date Final Ced Date Ultra Sound Latest Days Gestation 0 0 Menstrual History Last Menstrual Date Menses Monthly On Bcp Conception Prior Menses Frequency Hcg Plus Date Menarche Onset Age Delivery Information Delivery Date Delivery Type Labor Anesthesia Weeks Gestation Incision Type Labor Labor Length Hrs Delivered By Post Complications Tubal Sterilization Discharge Date Comments 1 33 Bud Discharge Information Feeding Method Contraceptive Method Maternal HG B and HCT Levels Ob Episode Information Episode Created Date Number of Fetuses Patient Bloodtype Patient rh Status Prepregnancy Weight lbs Domestic Partner Domestic Partner Phone Father Name Acquisition Professional Status 04/03/19 22 1 194 CLOSED Fetus Data First Name Last Name Admitted to NICU Weight (g) Sex Living Outcome Pediatric Complications Fetus ID Race Codes Race Delivery Type 2608.15 4 F true Full Term [id number] Repeat Problems Problem Notes Had high BPs in the ER 03/28 but NL labs and PCR 0.28 and no high BPs prior to this. TP 24hr WNL Problem Name Start Date End Date Resolution Snomed Code Not e Anemia 04/07/2021 384189408 To start slowfe daily 1 tab Hypoglycemia 182742200 Female sterilization 81169093 -induced hypertension 59461329 admitted for se anselmo range pressures, got a course of steroids. Pressures resolved during that period of observation. Deliveries by repeat LTCS 05/20 u/s High Tranverse Hyperemesis 803905877 Zofran a nd doxylamine Ced Calculation Initial Ced Date Initial Exam Date Initial Exam Provider Initial Ultrasound Date Last Menstrual Period Date Ultra Sound Weeks Gestation 05/27/2021 04/03/2021 10/28/2020 08/20/2020 7 Eighteen To Twenty Week Ced Update Ultra Sound Date Fundal Height At Umbil Quickening Date Ultra Sound Latest Weeks Gestation Final Ced Confirmed By Final Ced Confirmed Date Final Ced Date Ultra Sound Latest Days Gestation 0 [email or web address] 04/03/2021 06/11/19 22 0 Pre-ahsan Flowsheet Flowsheet Date 04/03/2021 [place]inton Score Blood Edema Fundus Height Fundus Units Glucose Ketones Leukocytes Nitrite Labor Signs Protein Cervic Dilation Cervic Effacement Cervic Station 28 Type Weight in lbs Pre/Post Dialysis Refused Weight 230.541155531139 BP Diastolic BP Location Tested BP Systolic BP Type 71 R arm 116 sitting Fetus Heart Rate Present A 145 Fetus Movement Comments This patient is a 40-year-ol d 3 para 0111 at 30 weeks gestation presents for initial care. She transferred care from [place]. She has had episodes of hypoglycemia. She is previous section we intend repeat with tubal ligation or salpingectomy. She is given recommendations on vaccines. We discussed care in detail. She is small for gestational age today and will return for growth ultrasound. Flowsheet Date 04/16/2021 Linton Score Blood Edema Fundus Height Fundus Units Glucose Ketones Leukocytes Nitrite Labor Signs Protein Cervic Dilation Cervic Effacement Cervic Station Type Weight in lbs Pre/Post Dialysis Refused BP Diastolic BP Location Tested BP Systolic BP Type Fetus Heart Rate Present Fetus Movement Comments Flowsheet Date 04/17/2021 Linton Score Blood Edema Fundus Height Fundus Units Glucose Ketones Leukocytes Nitrite Labor Signs Protein Cervic Dilation Cervic Effacement Cervic Station neg trace 32 none trace Type Weight in lbs Pre/Post Dialysis Refused Weight 242.393108620642 BP Diastolic BP Location Tested BP Systolic BP Type 84 139 Fetus Heart Rate Present A 147 Fetus Movement A Yes Comments no complaints, no hypoglycem ic events, good movement, no evidence of labor. Flowsheet Date 04/28/2021 Linton Score Blood Edema Fundus Height Fundus Units Glucose Ketones Leukocytes Nitrite Labor Signs Protein Cervic Dilation Cervic Effacement Cervic Station 34 Type Weight in lbs Pre/Post Dialysis Refused Weight 242.561625286819 BP Diastolic BP Location Tested BP Systolic BP Type 81 R arm 148 sitting 94 L arm 140 sitting Fetus Heart Rate Present A 125 Fetus Movement Comments No complaints, no episodes o f hypoglycemia, has signed IDPA form, elevated blood pressures today, given precautions and asked to return in 1 week Flowsheet Date 05/05/2021 Linton Score Blood Edema Fundus Height Fundus Units Glucose Ketones Leukocytes Nitrite Labor Signs Protein Cervic Dilation Cervic Effacement Cervic Station 2+ neg Type Weight in lbs Pre/Post Dialysis Refused BP Diastolic BP Location Tested BP Systolic BP Type 100 R arm 150 sitting Fetus Heart Rate Present Fetus Movement Comments Blood pressure check. 150/10 0 on both the machine in front and manually. discussed early at 37 weeks, to schedule, needs to start biweekly NSTs, she was given precautions on severe preeclampsia symptoms. To get 24 hour urine collection. To check preeclampsia labs outpatient. Flowsheet Date 05/05/2021 Linton Score Blood Edema Fundus Height Fundus Units Glucose Ketones Leukocytes Nitrite Labor Signs Protein Cervic Dilation Cervic Effacement Cervic Station Type Weight in lbs Pre/Post Dialysis Refused BP Diastolic BP Location Tested BP Systolic BP Type Fetus Heart Rate Present Fetus Movement Comments Flowsheet Date 05/08/2021 Linton Score Blood Edema Fundus Height Fundus Units Glucose Ketones Leukocytes Nitrite Labor Signs Protein Cervic Dilation Cervic Effacement Cervic Station Type Weight in lbs Pre/Post Dialysis Refused Weight 249.002425855721 BP Diastolic BP Location Tested BP Systolic BP Type 78 118 Fetus Heart Rate Present Fetus Movement Comments Flowsheet Date 05/12/2021 Linton Score Blood Edema Fundus Height Fundus Units Glucose Ketones Leukocytes Nitrite Labor Signs Protein Cervic Dilation Cervic Effacement Cervic Station 37 Type Weight in lbs Pre/Post Dialysis Refused Weight 254.415338620350 BP Diastolic BP Location Tested BP Systolic BP Type 84 R arm 130 sitting Fetus Heart Rate Present A 145 Fetus Movement A Yes Comments continued in a tingling in h er fingers and toes. Will likely resolved after the . Have next week. Continued testing until that time. Flowsheet Date 05/12/2021 Linton Score Blood Edema Fundus Height Fundus Units Glucose Ketones Leukocytes Nitrite Labor Signs Protein Cervic Dilation Cervic Effacement Cervic Station Type Weight in lbs Pre/Post Dialysis Refused BP Diastolic BP Location Tested BP Systolic BP Type Fetus Heart Rate Present Fetus Movement Comments Flowsheet Date 05/12/2021 Linton Score Blood Edema Fundus Height Fundus Units Glucose Ketones Leukocytes Nitrite Labor Signs Protein Cervic Dilation Cervic Effacement Cervic Station Type Weight in lbs Pre/Post Dialysis Refused BP Diastolic BP Location Tested BP Systolic BP Type Fetus Heart Rate Present Fetus Movement Comments Flowsheet Date 05/19/2021 Linton Score Blood Edema Fundus Height Fundus Units Glucose Ketones Leukocytes Nitrite Labor Signs Protein Cervic Dilation Cervic Effacement Cervic Station 36 Type Weight in lbs Pre/Post Dialysis Refused Weight 257.917998576290 BP Diastolic BP Location Tested BP Systolic BP Type 82 R arm 124 sitting Fetus Heart Rate Present A 145 Fetus Movement Comments tomorrow Flowsheet Date 05/19/2021 Linton Score Blood Edema Fundus Height Fundus Units Glucose Ketones Leukocytes Nitrite Labor Signs Protein Cervic Dilation Cervic Effacement Cervic Station Type Weight in lbs Pre/Post Dialysis Refused BP Diastolic BP Location Tested BP Systolic BP Type Fetus Heart Rate Present Fetus Movement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
--- OUTSIDE RECORDS SUMMARY | 2024-04-07 19:37 | XMS_ITS | Continuity of Care Document ---
Author Name Rajat, Nithya Address [address] [place] [address] Organization Unknown Address [address] [place] [address] Medications Problems
--- OUTSIDE RECORDS SUMMARY | 2024-04-07 19:37 | XMS_ITS | Clinical Summary ---
Author Organization [facility] Physician Office Building [address] [place] [id number] Care Team Providers Care Marine Habitat Resource Specialist Name Role Phone Johanna Gonzalez MD Primary Care Provider [phone] Snow Kay NP Unavailable [phone] Allergies Active Allergy Reactions Criticality Noted Date Comments Other Unknown 03/29/2021 Medications furosemide (LASIX) 40 mg tablet Take 40 mg by mouth daily 3 11/01/2018 Active vit D3-vit E-odmuvhpqs-ovve [phone] rtsp-qip-li-mg tablet Take by mouth Active vitamin D64-xvhti acid 0.5-1 mg tablet Take by mouth daily Active potassium 99 mg tablet Take by mouth Active PNV 39-iron yvm-vnzfj-kel-dh a 30 mg iron-1.2 mg-55 mg-265 mg capsule Take by mouth daily Active magnesium gluconate 200 mg tabletIndication s:hypomagnesemia 200 mg Act baldomero Active Problems No known active problems Medical History Medical History Date Comments Anemia Hypoglycemia Family History Medical History Relation Name Comments No Known Problems Father No Known Problems Mother Relation Name Status Comments Father Mother Social History Tobacco Use Types Packs/Day Years Used Date Smoking Tobacco: Former Smokeless Tobacco: Never Tobacco Cessation:Counseling Given: Not Answered AUDIT-C Answer Date Recorded Q1: How often do you have a drink containing alc ohol? Monthly or less 06/23/2021 Average Number of Drinks Not on file 022 Frequency of Binge Drinking Not on file 06/06 Personal Safety Answer Date Recorded Getting School Help Needed Not on file 03/10 Comments Unknown Sex and Gender Information Value Date Recorded Sex Assigned at Not on file Legal Sex Female 9:50 AM CDT Gender Identity Not on file Sexual Orientation Not on file Obstetrics History Last Filed Vital Signs Vital Sign Reading Time Taken Comments Blood Pressure 141/84 06/23/2021 9:48 AM CDT Pulse 84 06/23/2021 9:48 AM CDT Temperature 36.9 ??C (98.4 ??F) 06/23/2021 9:48 AM CD T Respiratory Rate - - Oxygen Saturation - - Inhaled Oxygen Concentration - - Weight 95.3 kg (210 lb) 12/31/2021 2:59 PM CDT Height 167.6 cm (5' 6 ) 12/31/2021 2:59 PM CDT Body Mass Index 33.89 12/31/2021 2:59 PM CDT Plan of Treatment Health Maintenance Due Date Last Done Comments Breast Cancer Screening-Mammogram 1981 Cervical Cancer Screening 1981 Depression Screening 1981 Hepatitis C Screening 1981 Varicella Vaccines (1 of 2 - 13+ 2-dose series) 1994 Hepatitis B Screening 12/12/1999 Regular Well Visit/Exam 18-64 12/12/1999 Covid-19 Vaccine (3 - 2023-2 5 season) 2023 07/15/2020, 06/17/2020 Influenza Vaccine (#1) 2023 2, 03/07/2020, 02/14/2019 DTaP/Tdap/Td Vaccine (2 - Td or Tdap) 03/06/2030 03/06/2020 HPV Vaccines Aged Out No longer eligi ble based on patient's age to complete this topic Pneumococcal vaccine <65 Aged Out No longer eligible based on patient's age to complete this topic Insurance [facility] Care Teams Marine Habitat Resource Specialist Relationship Specialty Start Date End Date [place] [place] [address] PCP - General Family Medicine 10/07/18 Snow [place] [address] Family Medicine 12/25/21
--- OUTSIDE RECORDS SUMMARY | 2024-04-07 19:37 | XMS_ITS | Clinical Summary ---
Author Organization [facility] Address [facility] [facility] [place] [address] [place] [address] Care Team Providers Care Barge Master Name Role Phone Johanna Gonzalez MD Primary Care Provider [phone] Allergies Active Allergy Reactions Criticality Noted Date Comments Seasonal Unknown 03/29/2021 Medications Vit-Fe Sulfate-FA ( VITAMIN OR)Indications: Nutritional Support Take 1 tablet by mouth daily. Indications: Nutritional Support Active ondansetron 4 MG tablet Take 4 mg by mouth 3 (three) times daily as needed. 9 Active doxylamine-pyri doxine EC 10-10 MG tablet Take 1 tablet by mouth 2 (two) times daily. Take two tablets by mouth at bedtime on day 1 and 2. If symptoms persist, take 1 tablet by mouth in morning and 2 tablets by mouth at bedtime on day 3. If symptoms persist, take 1 tablet by mouth in morning, 1 tablet by mouth mid-afternoon, and 2 tablets by mouth at bedtime on day 4. Maximum dose: doxylamine 40 mg/pyridoxine 40 mg (4 tablets) per day. Active Active Problems Problem Noted Date Diagnosed Date ([facility]) 03/29/2021 Immunizations Name Administration Dates Next Due Fluzone 6 Months+ Quad (0.5 mL Prefilled Syringe ) 03/29/2021 Family History Medical History Relation Comments Heart Disease Father Hypertension Father Cancer Mother Kidney Disease Mother Relation Status Comments Father Alive Mother Alive Social History Tobacco Use Types Packs/Day Years Used Date Smoking Tobacco: Never Smokeless Tobacco: Never Alcohol Use Standard Drinks/Week Comments Yes 0 (1 standard drink = 0.6 oz pur e alcohol) occ Comments No Sex and Gender Information Value Date Recorded Sex Assigned at Not on file Legal Sex Female 5:58 PM REAL ESTATE DEVELOPMENT MANAGER Gender Identity Not on file Sexual Orientation Not on file Last Filed Vital Signs Vital Sign Reading Time Taken Comments Blood Pressure 105/63 03/29/2021 5:06 PM REAL ESTATE DEVELOPMENT MANAGER Pulse 99 03/29/2021 5:06 PM REAL ESTATE DEVELOPMENT MANAGER Temperature 36.4 ??C (97.5 ??F) 03/29/2021 5:05 PM CS T Respiratory Rate 18 03/29/2021 5:23 PM REAL ESTATE DEVELOPMENT MANAGER Oxygen Saturation 98% 03/29/2021 1:42 AM REAL ESTATE DEVELOPMENT MANAGER Inhaled Oxygen Concentration - - Weight 98.4 kg (217 lb) 03/28/2021 11:53 PM REAL ESTATE DEVELOPMENT MANAGER Height 172.7 cm (5' 8 ) 03/28/2021 11:53 PM REAL ESTATE DEVELOPMENT MANAGER Body Mass Index 32.99 03/28/2021 11:53 PM REAL ESTATE DEVELOPMENT MANAGER Plan of Treatment Health Maintenance Due Date Last Done Comments Cervical Cancer Screening Pa p Smear (Age 30 to 64) Every 3 Years 1981 Annual Physical 1984 Hepatitis C 12/12/1999 Hepatitis B Vaccines (1 of 3 - 19+ 3-dose series) 2000 Cervical Cancer Screening Pa p with HPV Testing (Age 30 to 64) Every 5 Years 12/12/2011 Cervical Cancer Screening wi th HPV 12/12/2011 Mammogram Screening 2021 COVID-19 Vaccine (2023-2 5 season) 2023 Influenza Adult (#1) 2023 03/29/2021, 03/07/2020, 02/14/2019 DTaP, Tdap and Td Vaccines ( 2 - Td or Tdap) 03/06/2030 03/06/2020 HPV Vaccines Aged Out No longer eligi ble based on patient's age to complete this topic Meningococcal B Vaccine Aged Out No l onger eligible based on patient's age to complete this topic Meningococcal Vaccine Aged Out No vadim teresa eligible based on patient's age to complete this topic Pneumococcal Vaccine: Pediatrics (0 to 5 Years) and At-Risk Patients (6 to 64 Years) Aged Out No longer eligible b ased on patient's age to complete this topic RSV Immunizations Under 20 Months Aged Out No longer eligible b ased on patient's age to complete this topic Medical Devices Implanted Type Area Supervisor Special Education Device Identifier Shelf Expiration Date Model / Serial / Lot Sponge Interceed - [id number] Implanted:Qty: 1 on 01/16/2019 by Pieter Yo MD at [facility] Abdomen [id number] / / Insurance [place] Advance Directives * Full Code (Latest Code Status on File) Date Activated Date Inactivated Comments 03/29/2021 12:27 AM 03/29/2021 7:25 PM * Full Code Date Activated Date Inactivated Comments 01/16/2019 11:18 AM 01/16/2019 2:44 PM Care Teams Barge Master Relationship Specialty Start Date End Date Johanna Gonzalez MD [address] [place] [address] PCP - General FAMILY PRACTICE 05/23/18
--- OUTSIDE RECORDS SUMMARY | 2024-04-07 19:37 | XMS_ITS | Clinical Summary ---
Author Organization [facility] Address [address] [place] [address] Care Team Providers Care Gymnasium Teacher Name Role Phone Johanna Gonzalez MD Primary Care Provider [phone] Source Comments [facility],non-owned Affiliates and Associated Physician Practices is amultiple site organization consisting of ambulatory clinics and hospital sitesin [place], [place], [place] and [place]. This disclosure is being madepursuant to the Care Everywhere program and may not contain all information available regarding this patient. Last updated 17.[facility] Allergies No known active allergies Medications * Be aware that medications may not be up to date on this document. Alwaysverify current medications with the patient. Medication Sig Dispensed Refills Start Date End Date Status vitamin D3 (CHOLECALCIFEROL) 25 MCG (1000 UNITS) tablet Take 1,000 Units by mouth once daily Active Doxylamine-Pyridoxi ne (DICLEGIS PO) Take 2 tablets by mouth every 12 hours Active ondansetron, disintegrating, (ZOFRAN ODT) 8 MG tablet Take 1 tablet by mouth every 8 hours as needed for Nausea/Vomiting Allow tablet to dissolve on the tongue 30 tablet 3 03/07/2020 Active promethazine (PHENERGAN) 25 MG tablet Take 1 tablet by mouth every 6 hours as needed for Nausea/Vomiting 30 tablet 3 03/07/2020 Active potassium chloride ER (KLOR-CON M) 20 MEQ tablet Take 1 tablet by mouth daily with dinner 30 tablet 2 03/07/2020 Active Additional Information Patient not taking.Reported on 03/27/2020 Active Problems Problem Noted Date Diagnosed Date Low-lying placenta in third trimester 03/06/2020 Advanced maternal age, 1st , third trim kevin 03/06/2020 Placenta previa, third trimester 03/03/2020 premature rupture of membranes (PPROM) with unknown onset of labor Maternal obesity, antepartum Encounter for ultrasound BARBARA (amniotic fluid index) borderline low Resolved Problems Problem Noted Date Diagnosed Date Resolved Date Hemorrhage from placenta previa, antepartum 03/06/2020 Immunizations Name Administration Dates Next Due INFLUENZA VACCINE, QUADR. (F LUZONE; FLULAVAL; FLUARIX; AFLURIA QUADRIVALENT; 6MO+), 0.5 ML (IIV4) 03/07/2020 TDAP (7yrs+) 03/06/2020 Family History Medical History Relation Name Comments CAD (Coronary Artery Disease) Father Hypertension Father Diabetes - Type 2 Maternal Grandfather CAD (Coronary Artery Disease) Paternal Grandfather Relation Name Status Comments Father Maternal Grandfather Alive Maternal Grandmother Alive Mother Alive Paternal Grandfather Social History Tobacco Use Types Packs/Day Years Used Date Smoking Tobacco: Never Smokeless Tobacco: Never Alcohol Use Standard Drinks/Week Comments Not Currently 0 (1 standard drink = 0.6 oz pur e alcohol) Sex and Gender Information Value Date Recorded Sex Assigned at Not on file Gender Identity Not on file Sexual Orientation Not on file Last Filed Vital Signs Vital Sign Reading Time Taken Comments Blood Pressure 94/67 12/07/2020 5:46 PM CDT Pulse 122 12/07/2020 5:46 PM CDT Temperature 36.7 ??C (98.1 ??F) 12/07/2020 5:46 PM CD T Respiratory Rate 18 12/07/2020 5:46 PM CDT Oxygen Saturation 100% 12/07/2020 5:46 PM CDT Inhaled Oxygen Concentration - - Weight 86.6 kg (191 lb) 12/07/2020 5:46 PM CDT Height 170.2 cm (5' 7 ) 12/07/2020 5:46 PM CDT Body Mass Index 29.91 12/07/2020 5:46 PM CDT Plan of Treatment Health Maintenance Due Date Last Done Comments LIPID TESTING 1981 MAMMOGRAM 1981 PAP SMEAR 1981 HIV SCREENING 1996 HEPATITIS C SCREENING 12/07/1999 HEPATITIS B VACCINE (1 of 3 - 19+ 3-dose series) 2000 COVID-19 VACCINE (2023-2 5 season) 2023 INFLUENZA VACCINE (#1) 2023 03/07/2020 DEPRESSION SCREENING 03/08/2024 DTAP/TDAP/TD VACCINES (2 - T d or Tdap) 03/06/2030 03/06/2020 ZOSTER VACCINE (1 of 2) 12/12/2031 HIB VACCINE Aged Out No longer eligi ble based on patient's age to complete this topic HPV VACCINE Aged Out No longer eligi ble based on patient's age to complete this topic MENINGOCOCCAL (Group B) VACCINE Aged Out No longer eligible based on patient's age to complete this topic MENINGOCOCCAL VACCINE Aged Out No vadim teresa eligible based on patient's age to complete this topic PNEUMOCOCCAL VACCINE Aged Out No long er eligible based on patient's age to complete this topic Advance Directives * Full Code (Latest Code Status on File) Date Activated Date Inactivated Comments 03/27/2020 5:45 PM 03/27/2020 8:24 PM * Full Code Date Activated Date Inactivated Comments 03/03/2020 1:49 PM 03/07/2020 3:40 PM Care Teams Gymnasium Teacher Relationship Specialty Start Date End Date Johanna Gonzalez MD [address] [place] [id number] PCP - General Family Medicine 03/27/20
--- OUTSIDE RECORDS SUMMARY | 2024-04-07 19:37 | XMS_ITS | Referral Summary ---
Author Organization [facility] Address [address] [place] [address] Care Team Providers Care Newswriter Name Role Phone Johanna Gonzalez MD Primary Care Provider [phone] Source Comments [facility],non-owned Affiliates and Associated Physician Practices is amultiple site organization consisting of ambulatory clinics and hospital sitesin [place], [place], [place] and [place]. This disclosure is being madepursuant to the Care Everywhere program and may not contain all information available regarding this patient. Last updated 17.[facility] Allergies No known active allergies Medications * [...] 0.5 ML (IIV4) 03/07/2020 TDAP (7yrs+) 03/06/2020 Social History Tobacco Use Types Packs/Day Years [...] Mass Index 29.91 12/07/2020 5:46 PM CDT Functional Status Functional Status Response Date of Assess ment Is person deaf or have serious hearing difficult y? No 03/27/2020 Is person blind or have serious difficulty seein g? No 03/27/2020 Does person have serious dif ficulty walking/climbing stairs? No 03/27/2020 Does person have difficulty dressing/bathing? No 03/27/2020 Does person have difficulty doing errands alone? No 03/27/2020 Cognitive Status Response Date of Assessm ent Does person have difficulty concentrating/remembering/making decisions? No 03/27/2020 Plan of Treatment Not on file Advance Directives * Full Code (Latest Code Status on File) Date Activated Date Inactivated Comments 03/27/2020 5:45 PM 03/27/2020 8:24 PM * Full Code Date Activated Date Inactivated Comments 03/03/2020 1:49 PM 03/07/2020 3:40 PM Care Teams Newswriter Relationship Specialty Start Date End Date Johanna Gonzalez MD [address] [place] [phone] PCP - General Family Medicine 03/27/20
--- OUTSIDE RECORDS SUMMARY | 2024-04-07 19:37 | XMS_ITS | Referral Summary ---
Author Organization [facility] Physician Office Building [address] [place] [id number] Care Team Providers Care Social Media Coordinator Name Role Phone Johanna Gonzalez MD Primary Care Provider [phone] Snow Kay NP Unavailable [phone] Allergies Active Allergy Reactions Criticality Noted Date Comments Other Unknown 03/29/2021 Medications furosemide (LASIX) 40 mg tablet Take 40 mg by mouth daily 3 11/01/2018 Active vit D3-vit V-bkxdudvop-tipd [phone] iiyc-rgf-im-mg tablet Take by mouth Active vitamin X08-hvviu acid 0.5-1 mg tablet Take by mouth daily Active potassium 99 mg tablet Take by mouth Active PNV 39-iron hkn-pjmqm-blb-dh a 30 mg iron-1.2 mg-55 mg-265 mg capsule Take by mouth daily Active magnesium gluconate 200 mg tabletIndication s:hypomagnesemia 200 mg Act baldomero Active Problems No known active problems Social History Tobacco Use Types Packs/Day Years [...] 12/31/2021 2:59 PM CDT Plan of Treatment Not on file Insurance [facility] Care Teams Social Media Coordinator Relationship Specialty Start Date End Date Johanna Gonzalez MD [address] [place] [address] PCP - General Family Medicine 10/07/18 Snow Kay NP [address] [place] [address] Family Medicine 12/25/21
--- OUTSIDE RECORDS SUMMARY | 2024-04-07 19:37 | XMS_ITS | Patient Health Summary ---
Author Organization [facility] Address [address] [place] [address] Care Team Providers Care Hand I Blocker Name Role Phone Johanna Gonzalez MD Primary Care Provider [phone] Note from [facility],non-owned Affiliates and Associated Physician Practices is amultiple site organization consisting of ambulatory clinics and hospital sitesin [place], [place], [place] and [place]. This disclosure is being madepursuant to the Care Everywhere program and may not contain all information available regarding this patient. Last updated 17.[facility] Allergies No known active allergies Medications * Be aware that medications may not be up to date on this document. Alwaysverify current medications with the patient. * vitamin D3 (CHOLECALCIFEROL) 25 MCG (1000 UNITS) tablet Take 1,000 Units by mouth once daily * Doxylamine-Pyridoxine (DICLEGIS PO) Take 2 tablets by mouth every 12 hours * ondansetron, disintegrating, (ZOFRAN ODT) 8 MG tablet(Started 03/07/2020) Take 1 tablet by mouth every 8 hours as needed for Nausea/Vomiting Allow tablet to dissolve on the tongue 3 refills by 03/07/2021 * promethazine (PHENERGAN) 25 MG tablet(Started 03/07/2020) Take 1 tablet by mouth every 6 hours as needed for Nausea/Vomiting 3 refills by 03/07/2021 * potassium chloride ER (KLOR-CON M) 20 MEQ tablet(Started 03/07/2020) Take 1 tablet by mouth daily with dinner 2 refills by 03/07/2021 Active Problems Problem Noted Date Diagnosed Date [...] Hemorrhage from placenta previa, antepartum 03/06/2020 Immunizations * INFLUENZA VACCINE, QUADR. (FLUZONE; FLULAVAL; FLUARIX; AFLURIA QUADRIVALENT; 6MO+), 0.5 ML (IIV4)(Given 03/07/2020) * TDAP (7yrs+)(Given 03/06/2020) Social History Tobacco Use Types Packs/Day Years [...] Mass Index 29.91 12/07/2020 5:46 PM CDT Procedures * PHOSPHORUS BLOOD(Performed 12/07/2020) * MAGNESIUM BLOOD(Performed 12/07/2020) * COMPREHENSIVE METABOLIC PANEL(Performed 12/07/2020) * CBC W AUTO DIFFERENTIAL(Performed 12/07/2020) * IMAGING/RADIOLOGY/XRAY RESULTS ORDER(Performed 04/03/2020) * NONSTRESS TEST(Performed 03/27/2020) * IMAGING/RADIOLOGY/XRAY RESULTS ORDER(Performed 03/25/2020) * SONOGRAM - COMPLETE(Performed 03/25/2020) Performed for Maternal obesity, antepartum (HCC), Low-lying placenta in third trimester (HCC), Advanced maternal age, 1st , third trimester (HCC) * CARDIAC RHYTHM STRIP ORDER(Performed 03/12/2020) * RUPTURE OF MEMBRANES EVAL(Performed 03/07/2020) * SONOGRAM - LIMITED(Performed 03/07/2020) * TYPE + SCREEN PANEL(Performed 03/07/2020) * CBC W AUTO DIFFERENTIAL(Performed 03/07/2020) * PHOSPHORUS BLOOD(Performed 03/07/2020) * MAGNESIUM BLOOD(Performed 03/07/2020) * BASIC METABOLIC PANEL (CALCIUM TOTAL)(Performed 03/07/2020) * NONSTRESS TEST(Performed 03/06/2020) * GLUCOSE - POINT OF CARE(Performed 03/06/2020) * GLUCOSE - POINT OF CARE(Performed 03/06/2020) * PHOSPHORUS BLOOD(Performed 03/06/2020) * MAGNESIUM BLOOD(Performed 03/06/2020) * BASIC METABOLIC PANEL (CALCIUM TOTAL)(Performed 03/06/2020) * NON-STRESS TEST(Performed 03/05/2020) * GLUCOSE - POINT OF CARE(Performed 03/05/2020) * PHOSPHORUS BLOOD(Performed 03/05/2020) * MAGNESIUM BLOOD(Performed 03/05/2020) * BASIC METABOLIC PANEL (CALCIUM TOTAL)(Performed 03/05/2020) * GLUCOSE - POINT OF CARE(Performed 03/05/2020) * GLUCOSE - POINT OF CARE(Performed 03/04/2020) * SONOGRAM - COMPLETE(Performed 03/04/2020) * CBC W AUTO DIFFERENTIAL(Performed 03/04/2020) * PHOSPHORUS BLOOD(Performed 03/04/2020) Performed for Placenta previa in second trimester ([facility]) * MAGNESIUM BLOOD(Performed 03/04/2020) Performed for Placenta previa in second trimester ([facility]) * BASIC METABOLIC PANEL (CALCIUM TOTAL)(Performed 03/04/2020) Performed for Placenta previa in second trimester ([facility]) * MAGNESIUM BLOOD(Performed 03/03/2020) * HGB HCT PANEL(Performed 03/03/2020) * BLOOD TYPE VERIFICATION(Performed 03/03/2020) * CULTURE STREP B(Performed 03/03/2020) * TYPE + SCREEN PANEL(Performed 03/03/2020) * PTT(Performed 03/03/2020) * PT-INR(Performed 03/03/2020) * FIBRINOGEN ACTIVITY(Performed 03/03/2020) * COMPREHENSIVE METABOLIC PANEL(Performed 03/03/2020) * CBC W AUTO DIFFERENTIAL(Performed 03/03/2020) Results * (ABNORMAL) CBC W AUTO DIFFERENTIAL (12/07/2020 6:32 PM CDT) Only the most recent of4 resultswithin the time period is included. WBC 13.2(H) 3.5 - 10.5 10? 3 /uL 12/07/2020 6:47 PM [facility] RBC 4.15 3.80 - 5.20 10? 6 /uL 12/07/2020 6:47 PM [facility] Hemoglobin 12.0 12.0 - 15.6 g/dL 12/07/2020 6:47 PM [facility] Hematocrit 35.8 35.0 - 45.0 % 12/07/2020 6:47 PM [facility] MCV 86.3 80.7 - 98.3 fL 12/07/2020 6:47 PM [facility] MCH 28.9 26.7 - 34.0 pg 12/07/2020 6:47 PM [facility] MCHC 33.5 30.8 - 35.9 g/dL 12/07/2020 6:47 PM [facility] Platelet Count 216 150 - 400 10? 3 /uL 12/07/2020 6:47 PM [facility] RDW-SD 46.3 36.0 - 50.0 fL 12/07/2020 6:47 PM [facility] RDW-CV 14.6 11.2 - 14.8 % 12/07/2020 6:47 PM [facility] MPV 10.5 9.4 - 12.9 fL 12/07/2020 6:47 PM [facility] nRBC Absolute 0.00 0 10? 3 /uL 12/07/2020 6:47 PM [facility] nRBC Auto 0.0 0 /100 WBC 12/07/2020 6:47 PM [facility] Neutrophils % 69.4 35.0 - 70.0 % 12/07/2020 6:47 PM [facility] Lymphocytes % 22.3 20.0 - 43.0 % 12/07/2020 6:47 PM [facility] Monocytes % 7.4 5.0 - 13.0 % 12/07/2020 6:47 PM [facility] Eosinophils % 0.2 0.0 - 6.0 % 12/07/2020 6:47 PM [facility] Basophil % 0.2 0.0 - 2.0 % 12/07/2020 6:47 PM [facility] Neutrophils Absolute 9.1(H) 1.6 - 7.0 10? 3 /uL 12/07/2020 6:47 PM [facility] Lymphocyte Absolute 2.9 1.1 - 3.9 10? 3 /uL 12/07/2020 6:47 PM [facility] Monocytes Absolute 0.98 0.26 - 1.07 10? 3 /uL 12/07/2020 6:47 PM [facility] Eosinophils Absolute 0.02 0.00 - 0.47 10? 3 /uL 12/07/2020 6:47 PM [facility] Basophils Absolute 0.02 0.00 - 0.08 10? 3 /uL 12/07/2020 6:47 PM [facility] Immature Granulocytes % 0.5 0.0 - 1.0 % 12/07/2020 6:47 PM [facility] Immature Granulocytes Absolute 0.06 12/07/2020 6:47 PM [facility] Blood BLOOD SPECIMEN / Unknown Venipuncture / Unknown 12/07/2020 6:32 PM CDT 12/07/2020 6:42 PM CDT Yusuf Champion MD LAB - HEMATOLOGY OR DERABLES [facility] [address] [place] [address], [facility] [phone] * (ABNORMAL) COMPREHENSIVE METABOLIC PANEL (12/07/2020 6:32 PM CDT) Only the most recent of2 resultswithin the time period is included. BUN 14 7 - 26 mg/dL 12/07/2020 7:07 PM [facility] Creatinine 0.61 0.56 - 0.96 mg/dL 12/07/2020 7:07 PM [facility] Sodium 136 136 - 145 mmol/L 12/07/2020 7:07 PM [facility] Potassium 3.2(L) 3.5 - 4.5 mmol/L 12/07/2020 7:07 PM [facility] Chloride 102 98 - 107 mmol/L 12/07/2020 7:07 PM [facility] CO2 25 22 - 29 mmol/L 12/07/2020 7:07 PM [facility] Glucose 91 70 - 115 mg/dL 12/07/2020 7:07 PM [facility] Calcium 9.4 8.4 - 10.2 mg/dL 12/07/2020 7:07 PM [facility] Protein Total 6.4 6.0 - 8.3 g/dL 12/07/2020 7:07 PM [facility] Albumin 3.4 3.4 - 5.0 g/dL 12/07/2020 7:07 PM [facility] Bilirubin Total 0.4 0.2 - 1.2 mg/dL 12/07/2020 7:07 PM [facility] Alkaline Phosphatase 36(L) 40 - 150 U/L 12/07/2020 7:07 PM [facility] ALT 10 5 - 55 U/L 12/07/2020 7:07 PM [facility] AST 11 5 - 34 U/L 12/07/2020 7:07 PM [facility] Anion Gap 12 8 - 18 12/07/2020 7:07 PM [facility] BUN/Creatinine Ratio 23 7 - 23 12/07/2020 7:07 PM [facility] Osmolality Calculated 282 270 - 300 mOsm/kg 12/07/2020 7:07 PM [facility] Albumin/Globulin Ratio 1.1 1.1 - 2.3 12/07/2020 7:07 PM [facility] eGFR by CKD-EPI >90 >=90 mL/min/1.7 3 m2 12/07/2020 7:07 PM [facility] Blood BLOOD SPECIMEN / Unknown Venipuncture / Unknown 12/07/2020 6:32 PM CDT 12/07/2020 6:36 PM CDT Yusuf Champion MD LAB - CHEMISTRY ORD ERABLES Performing Organization Address City/[facility]/ZIP Co de Phone Number [facility] [address] [place] [address], [place] [phone] * PHOSPHORUS BLOOD (12/07/2020 6:32 PM CDT) Only the most recent of5 resultswithin the time period is included. Phosphorus 3.7 2.9 - 5.1 mg/dL 12/07/2020 7:07 PM CDT [facility] Blood BLOOD SPECIMEN / Unknown Venipuncture / Unknown 12/07/2020 6:32 PM CDT 12/07/2020 6:36 PM CDT Yusuf Champion MD LAB - CHEMISTRY ORD ERABLES Performing Organization Address [facility] Co de Phone Number [address] [address], [place] [phone] * MAGNESIUM BLOOD (12/07/2020 6:32 PM CDT) Only the most recent of6 resultswithin the time period is included. Magnesium 1.7 1.6 - 2.6 mg/dL 12/07/2020 7:07 PM CDT [facility] Blood BLOOD SPECIMEN / Unknown Venipuncture / Unknown 12/07/2020 6:32 PM CDT 12/07/2020 6:36 PM CDT Yusuf Champion MD LAB - CHEMISTRY ORD ERABLES Performing Organization Address City/[facility]/ZIP Co de Phone Number [address] [address], [place] [phone] * IMAGING RADIOLOGY XRAY RESULTS ORDER (04/03/2020 12:23 PM FRAME STYLIST) Only the most recent of2 resultswithin the time period is included. Anatomical Region Laterality Modality Other Narrative 04/03/2020 12:23 PM FRAME STYLIST Ordered by an unspecified provider. Scanned Document IMAGING * NONSTRESS TEST (03/27/2020 7:17 PM FRAME STYLIST) Narrative Gal Martines MD - 03/27/2020 7:17 PM FRAME STYLIST Lito Elizondo MD ? 03/27/2020 ??8:44 PM Name: ??Papito Sweeney Date of : ??1980 Today's Date: ??03/27/2020 32w5d ?NST RESULTS (WRIGHT) OBJECTIVE FINDINGS Temp: 97.1 ??F (36.2 ??C), Pulse: 107, ??, BP: 97/67 OBJECTIVE FINDINGS Movement: Present Monitoring Mode: External Baseline: 135 BPM Variability: Moderate Decelerations: None Accelerations: Yes OTHER INFORMATION Megahn Talbot RN Non-Stress Test Indications: Patient Active Problem List: ?? Placenta previa, third trimester ?? premature rupture of membranes (PPROM) with unknown onset of labor ?? Maternal obesity, antepartum ?? Encounter for ultrasound ?? Low-lying placenta in third trimester ?? Advanced maternal age, 1st , third trimester ?? BARBARA (amniotic fluid index) borderline low Interpretation: Baseline: ??135 beats/minute moderate variability ?Reactive ?Contractions: ??none ?Decelerations: ??none FWB reactive and reassuring Lito Elizondo MD 03/27/2020 8:44 PM Gal Martines MD OB GYNE ORDERA BLES * SONOGRAM - COMPLETE (03/25/2020 9:58 AM FRAME STYLIST) Only the most recent of2 resultswithin the time period is included. Anatomical Region Laterality Modality Other 03/25/2020 9:58 AM FRAME STYLIST Narrative 03/25/2020 3:05 PM FRAME STYLIST ?[facility] ? - [place] ? [facility] ?PHONE: ??FAX: Pat. Name: ?PAPITO SWEENEY Pat. No: ?[id number] Study Date: ?? 03/25/2020 ??9:58am , Age: ? 1980, 39 Pregnancies: ?? 2, Para 0, Ab 1 Height: ? 67 in Weight: ? 213 lb LMP: ?Unknown GA by Base: ?? 32w3d ?? CALLIE: 05/17/2020 GA by US: ? 30w4d ?? CALLIE: 05/30/2020 GA Selected: ??32w3d (From [facility]) CALLIE: ?05/17/2020 Referring MD: Johanna Gonzalez MD Senior Mechanical Project Engineer: ??Elisaebt Bonilla, SERGE, RDGISEL CPT4: ? 92449,59505 BMI: ?33.36 Room: ? 512 Hist/Ind: ? Complete placenta previa on outside scan ?Hx Vaginal bleeding ?Class I Obesity MEASUREMENTS & AGE ? GROWTH EVALUATION Measurement ??GA ? Range ? Srce %for GA Ratios ----- ---- ------- BPD ??7.4 cm 29w4d (75k3a-40p8h) Hadl BPD <01 FL/BPD 0.79 (0.71 - 0.87) HC ??28.8 cm 31w4d (99u2y-22e9w) Hadl HC ??5% FL/AC ??0.22 (0.20 - 0.24) AC ??26.4 cm 30w3d (38s8f-75h5r) Hadl AC ??6% HC/AC ??1.09 (0.95 - 1.14) FL ?? 5.9 cm 30w4d (46c2q-12k6i) Hadl FL ??4% CI ? 0.69 (0.70 - 0.86* HL ?? 5.6 cm 32w2d (14n5x-84b1n) Sravan HL ??49% GA for sonogram 30w4d (10g2v-41c9x) ?? Weight Estimate: based on (HC,AC,FL) Hadlock ?Weight: 1622 gm (1382-1862gm) Had ? : 3lbs, 9oz ? Normal: 2040 gm (1530- 2550gm) Had ? Wt% ? 6% for 32w3d Cervix: ??Length: 3.6 cm ??Approach: transvaginal ??Funneling: not present Heart Rate: 134 bpm Amniotic Fluid Index: 10.6cm (08.5-24.3) Q1: 2.7cm ??Q2: 2.2cm ??Q3: 3.2cm ??Q4: 2.5cm ?? Biophysical Profile: 10/15 Breathin ?? Tone: 2 ?? NST: 2 Movement: ??2 ?? AFV: ??2 EVAL, PLACENTA Presentation: cephalic Placenta: posterior:right lateral Previa: complete previa Heart Rate: 134 bpm Amniotic Fluid Volume: normal DOPPLER Umbilical - Mid Cord S/D ??2.35(1.82 - 3.83) ? PI ?? 0.88 (0.65 - 1.24) ? Anatomy!Normal!Abnormal!Suboptimal!Prev. Seen!Comments Cranium ?! ?! ?! ?! ? x ?! Mdl (CSP/Thal! ?! ?! ?! ? x ?! Ventricles ?? ! ?! ?! ?! ? x ?! Choroid Plexu! ?! ?! ?! ? x ?! Cerebellum ?? ! ?! ?! ?! ? x ?! Cerebellar Ve! ?! ?! ? x ?! ?! Cisterna M. ??! ?! ?! ?! ? x ?! Orbits ? ! ?! ?! ?! ? x ?! Profile ?! ?! ?! ?! ? x ?! Nasal Bone ?? ! ?? x ??! ?! ?! ?! Lip ?! ?! ?! ?! ? x ?! Maxilla ?! ?! ?! ?! ? x ?! Mandible ? ! ?! ?! ?! ? x ?! Neck ? ! ?! ?! ?! ? x ?! Spine ?! ?? x ??! ?! ?! ?! Lungs ?! ?? x ??! ?! ?! ?! 4 Chamber Hea! ?? x ??! ?! ?! ?! LVOT ? ! ?! ?! ? x ?! ?! RVOT ? ! ?! ?! ? x ?! ?! 3 Vessel View! ?? x ??! ?! ?! ?! 3 Vessel Trac! ?? x ??! ?! ?! ?! Cross-over ?? ! ?? x ??! ?! ?! ?! Ductal Arch ??! ?! ?! ?! ? x ?! Aortic Arch ??! ?? x ??! ?! ?! ?! Caval View ?? ! ?! ?! ?! ? x ?! Situs ?! ?! ?! ?! ? x ?! Diaphragm ?! ?! ?! ?! ? x ?! Stomach ?! ?? x ??! ?! ?! ? x ?! Liver ?! ?? x ??! ?! ?! ?! Bowel ?! ?! ?! ?! ? x ?! Kidneys ?! ?? x ??! ?! ?! ? x ?! Bladder ?! ?? x ??! ?! ?! ? x ?! 3 Vessel Cord! ?? x ??! ?! ?! ?! Cord In! ?! ?! ? x ?! ?! Upper Extremi! ?! ?! ? x ?! ?! Hands ?! ?! ?! ? x ?! ?! Lower Extremi! ?? x ??! ?! ?! ?! Feet ? ! ?! ?! ? x ?! ?! External Mignon! ?! ?! ? x ?! ?! Placental Cor! ?! ?! ? x ?! ?! CLINICAL SUMMARY Study Number: 3 ?? A single fetus is seen in cephalic presentation. ??The measurements today are consistent with less than expected interval growth. ?? The CALLIE selected is based on a prior ultrasound. ??The amniotic fluid volume is within normal limits. ??5.9 x4.8 x1.7 cm hypoechoic area near the internal cervical os. The FHR baseline was 130 bpm during today's NST. ??The FHR variability was moderate. ?? IMPRESSION: Single, live intrauterine at 32w3d ?? Amniotic fluid volume: Normal ?? size is less than expected ?? Biophysical profile: Reassuring ?? Doppler studies: Normal ?? RECOMMEND: Repeat growth in 3 weeks ?? Thank you for allowing us the opportunity to care for your patient. Jimmy Hinojosa MD <Electronic Signature> ??03/25/2020 03:05pm Ordering Provider Unlisted MD JOSUÉ DONOVAN STEPHANIE * CARDIAC RHYTHM STRIP ORDER (03/12/2020 11:17 AM FRAME STYLIST) Narrative 03/12/2020 11:17 AM FRAME STYLIST Ordered by an unspecified provider. Scanned Document CARDIAC SERVICES ORD ERABLES * RUPTURE OF MEMBRANES EVAL (03/07/2020 12:49 PM FRAME STYLIST) [facility] Signature RUPTURE OF MEMBRANES NEGATIVE NEGATIVE 03/07/2020 1:15 PM FRAME STYLIST [facility] Fluid VAGINAL SWAB / Unknown Collection / Unknown 03/07/2020 12:49 PM FRAME STYLIST 03/07/2020 12:53 PM FRAME STYLIST Narrative [facility] - 03/07/2020 1:15 PM FRAME STYLIST A rupture of membranes diagnosis should not be based on any single test and the results should be interpreted in conjunction with other clinical information. This test may report positive results in patients with intact membranes and therefore decisions to induce labor should not be based solely on the ROM Plus test results. ROM Plus test kits will function properly with trace amounts of blood in the sample. Significant amounts of bloody discharge may cause the test to malfunction and testing of these samples is not recommended. Elevated serum, urine, cord blood, and amniotic fluid as well as maternal serum levels of AFP have been reported in the literature in various developmental disorders such as neural-tube defects, hypothyroidism, autoimmune states, congenital heart defects, cystic fibrosis, etc. ROM Plus has not been evaluated for potential interference in these conditions. Walter Hurley MD LAB - BODY FLUID ORD ERABLES Performing Organization Address City/State/[facility] Co de Phone Number [facility] [address] [place] [address] * SONOGRAM - LIMITED (03/07/2020 9:30 AM FRAME STYLIST) Anatomical Region Laterality Modality Other 03/07/2020 9:30 AM FRAME STYLIST Narrative 03/07/2020 4:44 PM FRAME STYLIST ?[facility] ? - [place] ? [facility] ?PHONE: ??FAX: Pat. Name: ?PAPITO SWEENEY Pat. No: ?[id number] Study Date: ?? 03/07/2020 ??9:30am , Age: ? 1980, 39 Pregnancies: ?? 2, Para 0, Ab 1 Height: ? 67 in Weight: ? 213 lb LMP: ?Unknown GA by Base: ?? 29w6d ?? CALLIE: 05/17/2020 GA Selected: ??29w6d (From [facility]) CALLIE: ?05/17/2020 Referring MD: Johanna Gonzalez MD Senior Mechanical Project Engineer: ??Elisabet Bonilla, SERGE, RDCS CPT4: ? 32520,96569 BMI: ?33.36 Room: ? 512 Hist/Ind: ? Complete placenta previa on outside scan ?Vaginal bleeding ?PPROM ?Class I Obesity Heart Rate: 123 bpm Amniotic Fluid Index: 11.3cm (09.0-23.4) Q1: 2.5cm ??Q2: 3.9cm ??Q3: 3.0cm ??Q4: 2.0cm ?? Biophysical Profile: 10/13 Breathin ?? Tone: 2 ?? Movement: ??2 ?? AFV: ??2 EVAL, PLACENTA Presentation: cephalic Placenta: posterior Previa: complete previa Heart Rate: 123 bpm Amniotic Fluid Volume: normal Anatomy!Normal!Abnormal!Suboptimal!Prev. Seen!Comments Cranium ?! ?! ?! ?! ? x ?! Mdl (CSP/Thal! ?! ?! ?! ? x ?! Ventricles ?? ! ?! ?! ?! ? x ?! Choroid Plexu! ?! ?! ?! ? x ?! Cerebellum ?? ! ?! ?! ?! ? x ?! Cisterna M. ??! ?! ?! ?! ? x ?! Orbits ? ! ?! ?! ?! ? x ?! Profile ?! ?? x ??! ?! ?! ?! Lip ?! ?? x ??! ?! ?! ?! Maxilla ?! ?! ?! ?! ? x ?! Mandible ? ! ?! ?! ?! ? x ?! Neck ? ! ?! ?! ?! ? x ?! Ductal Arch ??! ?! ?! ?! ? x ?! Caval View ?? ! ?! ?! ?! ? x ?! Situs ?! ?! ?! ?! ? x ?! Diaphragm ?! ?! ?! ?! ? x ?! Stomach ?! ?? x ??! ?! ?! ? x ?! Bowel ?! ?! ?! ?! ? x ?! Kidneys ?! ?? x ??! ?! ?! ? x ?! Bladder ?! ?? x ??! ?! ?! ? x ?! CLINICAL SUMMARY Study Number: 2 ?? A single fetus is seen in cephalic presentation. ??The amniotic fluid volume is within normal limits. ??The placenta is posterior and, on transabdominal scanning, appears to completely cover the internal os. ?? IMPRESSION: Single, live, intrauterine at 29w6d Amniotic fluid volume: within normal limits ?? Biophysical profile: Reassuring ?? RECOMMEND: Follow up as clinically indicated per the inpatient team. ?? Thank you for allowing us the opportunity to care for your patient. ?? cc: ??Inpatient at time of study ? Lin Pelaez MD ?<Electronic Signature> ??03/07/2020 04:43pm Walter Hurley MD [facility] ORDERABLES * TYPE + SCREEN PANEL (03/07/2020 5:16 AM FRAME STYLIST) Only the most recent of2 resultswithin the time period is included. ABO Rh O POS 03/07/2020 6:17 AM [facility] Comment:History checked. Antibody Screen NEG 0 6:17 AM [facility] Blood Bank BLOOD SPECIMEN / Unknown Lab Venipuncture / Unknown 03/07/2020 5:16 AM FRAME STYLIST 03/07/2020 5:31 AM [facility] Carlin Kline MD LAB - BLOOD BANK ORD ERABLES [facility] [address] [phone] * (ABNORMAL) BASIC METABOLIC PANEL (CALCIUM TOTAL) (03/07/2020 5:16 AM FRAME STYLIST) Only the most recent of4 resultswithin the time period is included. Glucose 77 70 - 105 mg/dL 03/07/2020 6:06 AM [facility] Sodium 136 136 - 145 mmol/L 03/07/2020 6:06 AM [facility] Potassium 4.4 3.5 - 5.1 mmol/L 03/07/2020 6:06 AM [facility] Chloride 106 98 - 107 mmol/L 03/07/2020 6:06 AM [facility] CO2 24 23 - 31 mmol/L 03/07/2020 6:06 AM [facility] Calcium 8.1(L) 8.4 - 10.4 mg/dL 03/07/2020 6:06 AM [facility] Anion Gap 6(L) 8 - 18 mmol/L 03/07/2020 6:06 AM [facility] Comment:Attention clinician: Reference Range change. BUN 7 7 - 18.7 mg/dL 03/07/2020 6:06 AM [facility] Creatinine 0.58 0.57 - 1.11 mg/dL 03/07/2020 6:06 AM [facility] eGFR by MDRD >60 >60 mL/min/1.7 3m2 03/07/2020 6:06 AM [facility] eGFR by MDRD >60 >60 mL/min/1.7 3m2 03/07/2020 6:06 AM FRAME STYLIST [facility] Blood BLOOD SPECIMEN / Unknown Lab Venipuncture / Unknown 03/07/2020 5:16 AM FRAME STYLIST 03/07/2020 5:31 AM FRAME STYLIST Walter Hurley MD LAB - CHEMISTRY CAPRI BOWENS [facility] [address] [place] [address] * NONSTRESS TEST (03/06/2020 5:20 PM FRAME STYLIST) Narrative Carlin Kline MD - 03/06/2020 5:20 PM FRAME STYLIST Maria Eugenia Muhammad MD ? 03/07/2020 ??7:22 AM Name: ??Papito Sweeney Date of : ??1980 Today's Date: ??03/06/2020 Time: 6343-4533 29w5d ?NST RESULTS (WRIGHT) OBJECTIVE FINDINGS Temp: 98.7 ??F (37.1 ??C), ??, ??, ?? NST Indication(s): Premature rupture of membranes Uterine Irritability: No Contractions: Not present OBJECTIVE FINDINGS Movement: Present Monitoring Mode: External Baseline: 135 BPM Variability: Moderate Decelerations: Variable Accelerations: Yes OTHER INFORMATION Julito Mast RN PGY2 [facility] Progress Note FHR: baseline 135 bpm, moderate variability, reactive, variable decelerations, reassuring TOCO: no ctx Maria Eugenia Muhammad MD 03/07/2020 7:22 AM Walter Hurley MD OB GYNE ORDERABLES * GLUCOSE - POINT OF CARE (03/06/2020 1:30 PM FRAME STYLIST) Only the most recent of5 resultswithin the time period is included. Glucose WB/POC 96 70 - 106 mg/dL 03/06/2020 1:36 PM FRAME STYLIST [facility] Specimen Type Arterial/C apillary 03/06/2020 1:36 PM FRAME STYLIST [facility] Blood BLOOD SPECIMEN / Unknown 03/06/2020 1:30 PM FRAME STYLIST 03/06/2020 1:36 PM FRAME STYLIST Walter Hurley MD LAB - POINT OF CARE ORDERABLES Performing Organization Address [facility]/ZIP Co de Phone Number [facility] [address] [phone] * NON-STRESS TEST (03/05/2020 6:01 PM FRAME STYLIST) Anatomical Region Laterality Modality Other Narrative 03/05/2020 6:01 PM FRAME STYLIST Julito Mast RN ? 03/05/2020 ??6:02 PM Name: ??Papito Sweeney Date of : ??1980 Today's Date: ??03/05/2020 Time: 1508- 1548 29w4d ?NST RESULTS (WRIGHT) OBJECTIVE FINDINGS Temp: 99 ??F (37.2 ??C), ??, Resp: 16, BP: 97/61 NST Indication(s): Premature rupture of membranes Uterine Irritability: No Contractions: Not present OBJECTIVE FINDINGS Movement: Present Monitoring Mode: External Baseline: 140 BPM Variability: Moderate Decelerations: Variable Accelerations: Yes OTHER INFORMATION Julito Mast RN Carlin Kline MD [facility] ORDERABLES * (ABNORMAL) HGB HCT PANEL (03/03/2020 7:56 PM FRAME STYLIST) Hemoglobin 11.0(L) 12.0 - 15.6 gm/dL 03/03/2020 8:08 PM FRAME STYLIST [facility] Hematocrit 33.2(L) 35.9 - 45.5 % 03/03/2020 8:08 PM FRAME STYLIST [facility] Blood BLOOD SPECIMEN / Unknown Venipuncture / Unknown 03/03/2020 7:56 PM FRAME STYLIST 03/03/2020 8:04 PM FRAME STYLIST Walter Hurley MD LAB - HEMATOLOGY ORD ERABLES Performing Organization Address [facility] [facility]ZIP Co de Phone Number [facility] [address] [place] [address] * BLOOD TYPE VERIFICATION (03/03/2020 2:35 PM FRAME STYLIST) ABO Rh O POS 03/03/2020 3:1 4 PM FRAME STYLIST [facility] LAB Blood Bank BLOOD SPECIMEN / Unknown 03/03/2020 2:35 PM FRAME STYLIST 03/03/2020 2:58 PM FRAME STYLIST Walter Hurley MD LAB - BLOOD BANK ORD ERABLES Performing Organization Address [facility] Co de Phone Number [facility] [address] [place] [address], [facility] [phone] * CULTURE STREP B (03/03/2020 2:28 PM FRAME STYLIST) Culture Strep B Negative for beta-hemolytic Streptococcus Group B JOSE LUIS 03/07/2020 9:56 AM FRAME STYLIST [facility] MICROBIOLOGY Microbiology MISCELLANEOUS SAMPLES / Unknown Collection / Unknown 03/03/2020 2:28 PM FRAME STYLIST 03/03/2020 2:44 PM FRAME STYLIST Walter Hurley MD LAB - MICROBIOLOGY O RDERABLES Performing Organization Address [facility] Co de Phone Number [facility] MICROBIOLOGY [address] [phone] * (ABNORMAL) FIBRINOGEN ACTIVITY (03/03/2020 2:03 PM FRAME STYLIST) Fibrinogen 477(H) 200 - 400 mg/dL 03/03/2020 3:06 PM FRAME STYLIST [facility] Blood BLOOD SPECIMEN / Unknown Lab Venipuncture / Unknown 03/03/2020 2:03 PM FRAME STYLIST 03/03/2020 2:26 PM FRAME STYLIST Walter Hurley MD LAB - COAGULATION OR DERABLES Performing Organization Address City/[facility] Co de Phone Number [facility] [address] [place] [address] * (ABNORMAL) PTT (03/03/2020 2:03 PM FRAME STYLIST) PTT 21.4(L) 23.0 - 38.4 sec 03/03/2020 2:57 PM FRAME STYLIST [facility] Blood BLOOD SPECIMEN / Unknown Lab Venipuncture / Unknown 03/03/2020 2:03 PM FRAME STYLIST 03/03/2020 2:26 PM FRAME STYLIST Narrative [facility] - 03/03/2020 2:57 PM FRAME STYLIST Heparin Therapeutic Range for PTT: ??71.0 - 109.0 seconds. Walter Hurley MD LAB - COAGULATION OR DERABLES Performing Organization Address [facility] de Phone Number [facility] [address] [place] [id number] * PT-INR (03/03/2020 2:03 PM FRAME STYLIST) PT 13.2 12.1 - 14.8 sec 03/03/2020 2:57 PM FRAME STYLIST [facility] INR 1.0 0.9 - 1.1 03/03/2020 2:57 PM FRAME STYLIST [facility] Blood BLOOD SPECIMEN / Unknown Lab Venipuncture / Unknown 03/03/2020 2:03 PM FRAME STYLIST 03/03/2020 2:26 PM FRAME STYLIST Narrative [facility] - 03/03/2020 2:57 PM FRAME STYLIST Conventional Warfarin Anticoagulant Therapy: INR Reference Range: ??2.0-3.0 Intensive Warfarin Anticoagulant Therapy: INR Reference Range: ? 2.5-3.5 Walter Hurley MD LAB - COAGULATION OR DERABLES Performing Organization Address [facility] de Phone Number [facility] [address] [place] [phone] Care Teams Hand I Blocker Relationship Specialty Start Date End Date Johanna Gonzalez MD [address] [place] [address] PCP - General Family Medicine 03/27/20
--- NOTE | 2024-04-07 19:50 | PC.NURSE ---
Patient states that she had a fall a couple weeks ago and fell again tonight. Limping on left ankle. Patient denies any ice to site, states that it hurts worse when ice is applied.
[2024-04-07 22:25] VITALS: BP 153/107; PULSE 82; RESP 18; TEMP 37.2; O2SAT 99
--- OUTSIDE RECORDS SUMMARY | 2024-04-07 22:38 | XMS_ITS | Referral Summary ---
Author Organization [facility] Address [address] [address] Care Team Providers Care Buttermilk Drier Operator Name Role Phone Johanna Gonzalez MD Primary Care Provider [phone] Source Comments [facility],non-owned Affiliates and Associated Physician Practices is amultiple site organization consisting of ambulatory clinics and hospital sitesin [place], [place], [place] and [place]. This disclosure is being madepursuant to the Care Everywhere program and may not contain all information available regarding this patient. Last updated 17.[facility] Allergies No known active allergies Medications * [...] 1:49 PM 03/07/2020 3:40 PM Care Teams Buttermilk Drier Operator Relationship Specialty Start Date End Date Johanna Gonzalez MD [address] [place] [phone] PCP - General Family Medicine 03/27/20
--- OUTSIDE RECORDS SUMMARY | 2024-04-07 22:38 | XMS_ITS | Clinical Summary ---
Author Organization [facility] Address [facility] [facility] [place] [address] [place] [address] Care Team Providers Care Shift Mechanic Name Role Phone Johanna Gonzalez MD Primary Care Provider [phone] Allergies Active Allergy Reactions Criticality Noted Date [...] Active Problems Problem Noted Date Diagnosed Date ([facility]) 03/29/2021 Immunizations Name Administration Dates Next [...] on file Legal Sex Female 5:58 PM [facility] Gender Identity Not on file Sexual Orientation Not on file Last Filed Vital Signs Vital Sign Reading Time Taken Comments Blood Pressure 105/63 03/29/2021 5:06 PM [facility] Pulse 99 03/29/2021 5:06 PM [facility] Temperature 36.4 ??C (97.5 ??F) 03/29/2021 5:05 PM CS T Respiratory Rate 18 03/29/2021 5:23 PM [facility] Oxygen Saturation 98% 03/29/2021 1:42 AM [facility] Inhaled Oxygen Concentration - - Weight 98.4 kg (217 lb) 03/28/2021 11:53 PM [facility] Height 172.7 cm (5' 8 ) 03/28/2021 11:53 PM [facility] Body Mass Index 32.99 03/28/2021 11:53 PM [facility] Plan of Treatment Health Maintenance Due Date [...] this topic Medical Devices Implanted Type Area Electric Meter Installer Helper Device Identifier Shelf Expiration Date Model / Serial / Lot Sponge Interceed - [id number] Implanted:Qty: 1 on 01/16/2019 by Pieter Yo MD at [facility] Abdomen [employer] - [employer] [place] [id number] / / Insurance [place] Advance Directives * Full Code (Latest Code Status on File) Date Activated Date Inactivated Comments 03/29/2021 12:27 AM 03/29/2021 7:25 PM * Full Code Date Activated Date Inactivated Comments 01/16/2019 11:18 AM 01/16/2019 2:44 PM Care Teams Shift Mechanic Relationship Specialty Start Date End Date Johanna Gonzalez MD [address] [address] PCP - General FAMILY PRACTICE 05/23/18
--- OUTSIDE RECORDS SUMMARY | 2024-04-07 22:38 | XMS_ITS | Clinical Summary ---
Author Organization [facility] Address [address] [place] [address] Care Team Providers Care Retail Sales Director Name Role Phone Johanna Gonzalez MD Primary Care Provider [phone] Source Comments [facility],non-owned Affiliates and Associated Physician Practices is amultiple site organization consisting of ambulatory clinics and hospital sitesin [place], [place], [place] and [place]. This disclosure is being madepursuant to the Care Everywhere program and may not contain all information available regarding this patient. Last updated 17.[facility] Allergies No known active allergies Medications * [...] 1:49 PM 03/07/2020 3:40 PM Care Teams Retail Sales Director Relationship Specialty Start Date End Date Johanna Gonzalez MD [address] [place] [phone] PCP - General Family Medicine 03/27/20
--- OUTSIDE RECORDS SUMMARY | 2024-04-07 22:38 | XMS_ITS | Patient Health Summary ---
Author Organization [facility] Address [address] [place] [address] Care Team Providers Care Ball Point Splitter Name Role Phone Johanna Gonzalez MD Primary Care Provider [phone] Note from [facility],non-owned Affiliates and Associated Physician Practices is amultiple site organization consisting of ambulatory clinics and hospital sitesin [place], [place], [place] and [place]. This disclosure is being madepursuant to the Care Everywhere program and may not contain all information available regarding this patient. Last updated 17.[facility] Allergies No known active allergies Medications [...] Performed for Placenta previa in second trimester ([facility]) * MAGNESIUM BLOOD(Performed 03/04/2020) Performed for Placenta previa in second trimester ([facility]) * BASIC METABOLIC PANEL (CALCIUM TOTAL)(Performed 03/04/2020) Performed for Placenta previa in second trimester ([facility]) * MAGNESIUM BLOOD(Performed 03/03/2020) * HGB HCT [...] 10.5 10? 3 /uL 12/07/2020 6:47 PM [facility] RBC 4.15 3.80 - 5.20 10? 6 /uL 12/07/2020 6:47 PM [facility] Hemoglobin 12.0 12.0 - 15.6 g/dL 12/07/2020 6:47 PM [facility] Hematocrit 35.8 35.0 - 45.0 % 12/07/2020 6:47 PM [facility] MCV 86.3 80.7 - 98.3 fL 12/07/2020 6:47 PM [facility] MCH 28.9 26.7 - 34.0 pg 12/07/2020 6:47 PM [facility] MCHC 33.5 30.8 - 35.9 g/dL 12/07/2020 6:47 PM [facility] Platelet Count 216 150 - 400 10? 3 /uL 12/07/2020 6:47 PM [facility] RDW-SD 46.3 36.0 - 50.0 fL 12/07/2020 6:47 PM [facility] RDW-CV 14.6 11.2 - 14.8 % 12/07/2020 6:47 PM [facility] MPV 10.5 9.4 - 12.9 fL 12/07/2020 6:47 PM [facility] nRBC Absolute 0.00 0 10? 3 /uL 12/07/2020 6:47 PM [facility] nRBC Auto 0.0 0 /100 WBC 12/07/2020 6:47 PM [facility] Neutrophils % 69.4 35.0 - 70.0 % 12/07/2020 6:47 PM [facility] Lymphocytes % 22.3 20.0 - 43.0 % 12/07/2020 6:47 PM [facility] Monocytes % 7.4 5.0 - 13.0 % 12/07/2020 6:47 PM [facility] Eosinophils % 0.2 0.0 - 6.0 % 12/07/2020 6:47 PM [facility] Basophil % 0.2 0.0 - 2.0 % 12/07/2020 6:47 PM [facility] Neutrophils Absolute 9.1(H) 1.6 - 7.0 10? 3 /uL 12/07/2020 6:47 PM [facility] Lymphocyte Absolute 2.9 1.1 - 3.9 10? 3 /uL 12/07/2020 6:47 PM [facility] Monocytes Absolute 0.98 0.26 - 1.07 10? 3 /uL 12/07/2020 6:47 PM [facility] Eosinophils Absolute 0.02 0.00 - 0.47 10? 3 /uL 12/07/2020 6:47 PM [facility] Basophils Absolute 0.02 0.00 - 0.08 10? 3 /uL 12/07/2020 6:47 PM [facility] Immature Granulocytes % 0.5 0.0 - 1.0 % 12/07/2020 6:47 PM [facility] Immature Granulocytes Absolute 0.06 12/07/2020 6:47 PM [facility] Blood BLOOD SPECIMEN / Unknown Venipuncture / Unknown 12/07/2020 6:32 PM CDT 12/07/2020 6:42 PM CDT Yusuf Champion MD LAB - HEMATOLOGY OR DERABLES [facility] [address] [place] [address], [facility] [phone] * (ABNORMAL) COMPREHENSIVE METABOLIC PANEL (12/07/2020 6:32 PM CDT) Only the most recent of2 resultswithin the time period is included. BUN 14 7 - 26 mg/dL 12/07/2020 7:07 PM [facility] Creatinine 0.61 0.56 - 0.96 mg/dL 12/07/2020 7:07 PM [facility] Sodium 136 136 - 145 mmol/L 12/07/2020 7:07 PM [facility] Potassium 3.2(L) 3.5 - 4.5 mmol/L 12/07/2020 7:07 PM [facility] Chloride 102 98 - 107 mmol/L 12/07/2020 7:07 PM [facility] CO2 25 22 - 29 mmol/L 12/07/2020 7:07 PM [facility] Glucose 91 70 - 115 mg/dL 12/07/2020 7:07 PM [facility] Calcium 9.4 8.4 - 10.2 mg/dL 12/07/2020 7:07 PM [facility] Protein Total 6.4 6.0 - 8.3 g/dL 12/07/2020 7:07 PM [facility] Albumin 3.4 3.4 - 5.0 g/dL 12/07/2020 7:07 PM [facility] Bilirubin Total 0.4 0.2 - 1.2 mg/dL 12/07/2020 7:07 PM [facility] Alkaline Phosphatase 36(L) 40 - 150 U/L 12/07/2020 7:07 PM [facility] ALT 10 5 - 55 U/L 12/07/2020 7:07 PM [facility] AST 11 5 - 34 U/L 12/07/2020 7:07 PM [facility] Anion Gap 12 8 - 18 12/07/2020 7:07 PM [facility] BUN/Creatinine Ratio 23 7 - 23 12/07/2020 7:07 PM [facility] Osmolality Calculated 282 270 - 300 mOsm/kg 12/07/2020 7:07 PM [facility] Albumin/Globulin Ratio 1.1 1.1 - 2.3 12/07/2020 7:07 PM [facility] eGFR by CKD-EPI >90 >=90 mL/min/1.7 3 m2 12/07/2020 7:07 PM [facility] Blood BLOOD SPECIMEN / Unknown Venipuncture / Unknown 12/07/2020 6:32 PM CDT 12/07/2020 6:36 PM CDT Yusuf Champion MD LAB - CHEMISTRY ORD ERABLES Performing Organization Address City/[facility]/ZIP Co de Phone Number [facility] [address] [place] [address], [place] [phone] * PHOSPHORUS BLOOD (12/07/2020 6:32 PM CDT) Only the most recent of5 resultswithin the time period is included. Phosphorus 3.7 2.9 - 5.1 mg/dL 12/07/2020 7:07 PM CDT [facility] Blood BLOOD SPECIMEN / Unknown Venipuncture / Unknown 12/07/2020 6:32 PM CDT 12/07/2020 6:36 PM CDT Yusuf Champion MD LAB - CHEMISTRY ORD ERABLES Performing Organization Address [facility] Co de Phone Number [address] [address], [place] [phone] * MAGNESIUM BLOOD (12/07/2020 6:32 PM CDT) Only the most recent of6 resultswithin the time period is included. Magnesium 1.7 1.6 - 2.6 mg/dL 12/07/2020 7:07 PM CDT [facility] Blood BLOOD SPECIMEN / Unknown Venipuncture / Unknown 12/07/2020 6:32 PM CDT 12/07/2020 6:36 PM CDT Yusuf Champion MD LAB - CHEMISTRY ORD ERABLES Performing Organization Address City/[facility]/ZIP Co de Phone Number [address] [address], [place] [phone] * IMAGING RADIOLOGY XRAY RESULTS ORDER (04/03/2020 12:23 PM THREADER) Only the most recent of2 resultswithin the time period is included. Anatomical Region Laterality Modality Other Narrative 04/03/2020 12:23 PM THREADER Ordered by an unspecified provider. Scanned Document IMAGING * NONSTRESS TEST (03/27/2020 7:17 PM THREADER) Narrative Gal Martines MD - 03/27/2020 7:17 PM THREADER Lito Elizondo MD ? 03/27/2020 ??8:44 PM Name: ??Papito Sweeney Date of : ??1980 Today's Date: ??03/27/2020 32w5d ?NST RESULTS (WRIGHT) OBJECTIVE FINDINGS Temp: 97.1 ??F (36.2 ??C), Pulse: 107, ??, BP: 97/67 OBJECTIVE FINDINGS Movement: Present Monitoring Mode: External Baseline: 135 BPM Variability: Moderate Decelerations: None Accelerations: Yes OTHER INFORMATION Meghan Talbot RN Non-Stress Test Indications: Patient Active [...] * SONOGRAM - COMPLETE (03/25/2020 9:58 AM THREADER) Only the most recent of2 resultswithin the time period is included. Anatomical Region Laterality Modality Other 03/25/2020 9:58 AM THREADER Narrative 03/25/2020 3:05 PM THREADER ?[facility] [place] [facility] ?PHONE: ??FAX: Pat. Name: ?PAPITO SWEENEY Pat. No: ?[id number] Study Date: ?? 03/25/2020 ??9:58am , Age: ? 1980, 39 Pregnancies: ?? 2, Para 0, Ab 1 Height: ? 67 in Weight: ? 213 lb LMP: ?Unknown GA by Base: ?? 32w3d ?? CALLIE: 05/17/2020 GA by US: ? 30w4d ?? CALLIE: 05/30/2020 GA Selected: ??32w3d (From [facility]) CALLIE: ?05/17/2020 Referring MD: Johanna Gonzalez MD Dethistler Operator: ??Elisabet Bonilla, SERGE, RDGISEL CPT4: ? 98253,04617 BMI: ?33.36 Room: ? 512 Hist/Ind: ? Complete placenta previa on outside scan ?Hx Vaginal bleeding ?Class I Obesity MEASUREMENTS & AGE ? GROWTH EVALUATION Measurement ??GA ? Range ? Srce %for GA Ratios ----- ---- ------- BPD ??7.4 cm 29w4d (28w5e-18c3t) Hadl BPD <01 FL/BPD 0.79 (0.71 - 0.87) HC ??28.8 cm 31w4d (82d4f-63i9g) Hadl HC ??5% FL/AC ??0.22 (0.20 - 0.24) AC ??26.4 cm 30w3d (83v0p-25z1d) Hadl AC ??6% HC/AC ??1.09 (0.95 - 1.14) FL ?? 5.9 cm 30w4d (68c6p-53v6n) Hadl FL ??4% CI ? 0.69 (0.70 - 0.86* HL ?? 5.6 cm 32w2d (79y6v-27z8f) Sravan HL ??49% GA for sonogram 30w4d (27p9j-59s3d) ?? Weight Estimate: based on (HC,AC,FL) Had[place] [...] Signature> ??03/25/2020 03:05pm Ordering Provider Unlisted MD JOSÉU DONOVAN STEPHANIE * CARDIAC RHYTHM STRIP ORDER (03/12/2020 11:17 AM THREADER) Narrative 03/12/2020 11:17 AM THREADER Ordered by an unspecified provider. Scanned Document CARDIAC SERVICES ORD ERABLES * RUPTURE OF MEMBRANES EVAL (03/07/2020 12:49 PM THREADER) [facility] Signature RUPTURE OF MEMBRANES NEGATIVE NEGATIVE 03/07/2020 1:15 PM THREADER [facility] Fluid VAGINAL SWAB / Unknown Collection / Unknown 03/07/2020 12:49 PM THREADER 03/07/2020 12:53 PM THREADER Narrative [facility] - 03/07/2020 1:15 PM THREADER A rupture of membranes diagnosis should not [...] BODY FLUID ORD ERABLES Performing Organization Address City/State/[facility] Co de Phone Number [facility] [address] [place] [address] * SONOGRAM - LIMITED (03/07/2020 9:30 AM THREADER) Anatomical Region Laterality Modality Other 03/07/2020 9:30 AM THREADER Narrative 03/07/2020 4:44 PM THREADER ?[facility] ? [facility] ?PHONE: ??FAX: Pat. Name: ?PAPITO SWEENEY Pat. No: ?[id number] Study Date: ?? 03/07/2020 ??9:30am , Age: ? 1980, 39 Pregnancies: ?? 2, Para 0, Ab 1 Height: ? 67 in Weight: ? 213 lb LMP: ?Unknown GA by Base: ?? 29w6d ?? CALLIE: 05/17/2020 GA Selected: ??29w6d (From [facility]) CALLIE: ?05/17/2020 Referring MD: Johanna Gonzalez MD Dethistler Operator: ??Elisabet Bonilla, SERGE, RDCS CPT4: ? 93151,21162 BMI: ?33.36 Room: ? 512 Hist/Ind: ? [...] ?<Electronic Signature> ??03/07/2020 04:43pm Walter Hurley MD [facility] ORDERABLES * TYPE + SCREEN PANEL (03/07/2020 5:16 AM THREADER) Only the most recent of2 resultswithin the time period is included. ABO Rh O POS 03/07/2020 6:[address] [facility] Comment:History checked. Antibody Screen NEG 0 6:[address] [facility] Blood Bank BLOOD SPECIMEN / Unknown Lab Venipuncture / Unknown 03/07/2020 5:16 AM THREADER 03/07/2020 5:31 AM [facility] Carlin Kline MD LAB - BLOOD BANK ORD ERABLES [facility] [address] [phone] * (ABNORMAL) BASIC METABOLIC PANEL (CALCIUM TOTAL) (03/07/2020 5:16 AM THREADER) Only the most recent of4 resultswithin the time period is included. Glucose 77 70 - 105 mg/dL 03/07/2020 6:[address] [facility] Sodium 136 136 - 145 mmol/L 03/07/2020 6:[address] [facility] Potassium 4.4 3.5 - 5.1 mmol/L 03/07/2020 6:[address] [facility] Chloride 106 98 - 107 mmol/L 03/07/2020 6:[address] [facility] CO2 24 23 - 31 mmol/L 03/07/2020 6:[address] [facility] Calcium 8.1(L) 8.4 - 10.4 mg/dL 03/07/2020 6:[address] [facility] Anion Gap 6(L) 8 - 18 mmol/L 03/07/2020 6:[address] [facility] Comment:Attention clinician: Reference Range change. BUN 7 7 - 18.7 mg/dL 03/07/2020 6:[address] [facility] Creatinine 0.58 0.57 - 1.11 mg/dL 03/07/2020 6:[address] [facility] eGFR by MDRD >60 >60 mL/min/1.7 3m2 03/07/2020 6:[address] [facility] eGFR by MDRD >60 >60 mL/min/1.7 3m2 03/07/2020 6:06 AM THREADER [facility] Blood BLOOD SPECIMEN / Unknown Lab Venipuncture / Unknown 03/07/2020 5:16 AM THREADER 03/07/2020 5:31 AM THREADER Walter Hurley MD LAB - CHEMISTRY CAPRI BOWENS [facility] [address] [place] [address] * NONSTRESS TEST (03/06/2020 5:20 PM THREADER) Narrative Carlin Kline MD - 03/06/2020 5:20 PM THREADER Maria Eugenia Muhammad MD ? 03/07/2020 ??7:22 AM Name: ??Papito Sweeney Date of : ??1980 Today's Date: ??03/06/2020 Time: 0521-3893 29w5d ?NST RESULTS (WRIGHT) OBJECTIVE FINDINGS Temp: 98.7 ??F (37.1 ??C), ??, ??, ?? NST Indication(s): Premature rupture of membranes Uterine Irritability: No Contractions: Not present OBJECTIVE FINDINGS Movement: Present Monitoring Mode: External Baseline: 135 BPM Variability: Moderate Decelerations: Variable Accelerations: Yes OTHER INFORMATION Julito Mast RN PGY2 [employer]AREHOU[employer] TEAM MEMBER Progress Note FHR: baseline 135 bpm, moderate variability, reactive, variable decelerations, reassuring TOCO: no ctx Maria Eugenia Muhammad MD 03/07/2020 7:22 AM Walter Hurley MD [facility] ORDERABLES * GLUCOSE - POINT OF CARE (03/06/2020 1:30 PM THREADER) Only the most recent of5 resultswithin the time period is included. Glucose WB/POC 96 70 - 106 mg/dL 03/06/2020 1:36 PM THREADER [facility] Specimen Type Arterial/C apillary 03/06/2020 1:36 PM THREADER [facility] Blood BLOOD SPECIMEN / Unknown 03/06/2020 1:30 PM THREADER 03/06/2020 1:36 PM THREADER Walter Hurley MD LAB - POINT OF CARE ORDERABLES Performing Organization Address [facility]/ZIP Co de Phone Number [facility] [address] [place] [phone] * NON-STRESS TEST (03/05/2020 6:01 PM THREADER) Anatomical Region Laterality Modality Other Narrative 03/05/2020 6:01 PM THREADER Julito Mast RN ? 03/05/2020 ??6:02 PM [...] INFORMATION Julito Mast RN Carlin Kline MD [facility] ORDERABLES * (ABNORMAL) HGB HCT PANEL (03/03/2020 7:56 PM THREADER) Hemoglobin 11.0(L) 12.0 - 15.6 gm/dL 03/03/2020 8:08 PM THREADER [facility] Hematocrit 33.2(L) 35.9 - 45.5 % 03/03/2020 8:08 PM THREADER [facility] Blood BLOOD SPECIMEN / Unknown Venipuncture / Unknown 03/03/2020 7:56 PM THREADER 03/03/2020 8:04 PM THREADER Walter Hurley MD LAB - HEMATOLOGY ORD ERABLES Performing Organization Address City/[facility]/ZIP Co de Phone Number [facility] [address] [place] [address] * BLOOD TYPE VERIFICATION (03/03/2020 2:35 PM THREADER) ABO Rh O POS 03/03/2020 3:1 4 PM THREADER [facility] Blood Bank BLOOD SPECIMEN / Unknown 03/03/2020 2:35 PM THREADER 03/03/2020 2:58 PM THREADER Walter Hurley MD LAB - BLOOD BANK ORD ERABLES Performing Organization Address [facility] Co de Phone Number [facility] [address] [place] [address], [facility] [phone] * CULTURE STREP B (03/03/2020 2:28 PM THREADER) Culture Strep B Negative for beta-hemolytic Streptococcus Group B JOSE LUIS 03/07/2020 9:56 AM THREADER [facility] MICROBIOLOGY Microbiology MISCELLANEOUS SAMPLES / Unknown Collection / Unknown 03/03/2020 2:28 PM THREADER 03/03/2020 2:44 PM THREADER Walter Hurley MD LAB - MICROBIOLOGY O RDERABLES Performing Organization Address [facility] Co de Phone Number [facility] MICROBIOLOGY [address] [phone] * (ABNORMAL) FIBRINOGEN ACTIVITY (03/03/2020 2:03 PM THREADER) Fibrinogen 477(H) 200 - 400 mg/dL 03/03/2020 3:06 PM THREADER [facility] Blood BLOOD SPECIMEN / Unknown Lab Venipuncture / Unknown 03/03/2020 2:03 PM THREADER 03/03/2020 2:26 PM THREADER Walter Hurley MD LAB - COAGULATION OR DERABLES Performing Organization Address City/[facility] Co de Phone Number [facility] [address] [place] [address] * (ABNORMAL) PTT (03/03/2020 2:03 PM THREADER) PTT 21.4(L) 23.0 - 38.4 sec 03/03/2020 2:57 PM THREADER [facility] Blood BLOOD SPECIMEN / Unknown Lab Venipuncture / Unknown 03/03/2020 2:03 PM THREADER 03/03/2020 2:26 PM THREADER Narrative [facility] - 03/03/2020 2:57 PM THREADER Heparin Therapeutic Range for PTT: ??71.0 - 109.0 seconds. Walter Hurley MD LAB - COAGULATION OR DERABLES Performing Organization Address [facility] de Phone Number [facility] [address] [place] [phone] * PT-INR (03/03/2020 2:03 PM THREADER) PT 13.2 12.1 - 14.8 sec 03/03/2020 2:57 PM THREADER [facility] INR 1.0 0.9 - 1.1 03/03/2020 2:57 PM THREADER [facility] Blood BLOOD SPECIMEN / Unknown Lab Venipuncture / Unknown 03/03/2020 2:03 PM THREADER 03/03/2020 2:26 PM THREADER Narrative [facility] - 03/03/2020 2:57 PM THREADER Conventional Warfarin Anticoagulant Therapy: INR Reference Range: ??2.0-3.0 Intensive Warfarin Anticoagulant Therapy: INR Reference Range: ? 2.5-3.5 Walter Hurley MD LAB - COAGULATION OR DERABLES Performing Organization Address [facility] de Phone Number [facility] [address] [place] [address] [phone] Care Teams Ball Point Splitter Relationship Specialty Start Date End Date Johanna Gonzalez MD [address] [place] [address] PCP - General Family Medicine 03/27/20
--- NOTE | 2024-04-07 23:10 | ED.LOWEXIN ---
HPI - Extremity Injury (Lower) General Chief Complaint: Extremity Injury, Lower Stated Complaint: fall Source: patient Mode of arrival: ambulatory Limitations: no limitations History of Present Illness HPI Narrative: patient is a 43-year-old female with a fall 2 weeks ago onto her back with the ice and further fell yesterday similarly onto her back and left side. She is here with left knee pain. Left knee swelling as well. No history of DVT or calf pain. MD complaint: knee injury ( Left) Onset (ago): day(s) (2) Type of Injury: blunt Place: street/outdoors Severity: moderate Severity scale (1-10): 5 Relieving factors: immobilization Exacerbating factors: weight bearing, movement and palpation Context: fall and direct blow Associated symptoms: swelling and able to partially bear weight Other symptoms: none Treatments prior to arrival: NSAIDS Related Data Allergies Allergy/AdvReac Type Severity Reaction Status Date / Time No Known Allergies Allergy Verified 12/19/21 19:12 Review of Systems Review of Systems: All systems reviewed & are unremarkable except as noted in HPI and below Constitutional: Constitutional: Reports no additional constitutional complaints Eyes: Eyes: Reports no additional eye complaints ENT: Reports system reviewed and no additional complaints, except as documented Cardiovascular: Cardiovascular: Reports no additional cardiovascular complaints Respiratory: Respiratory: Reports no additional respiratory complaints Gastrointestinal: Gastrointestinal: Reports no additional gastrointestinal complaints Genitourinary: Genitourinary: Reports no additional female genitourinary complaints Musculoskeletal: Musculoskeletal: Reports no additional musculoskeletal complaints Integumentary/Breasts: Skin/Breast: Reports system reviewed and no additional complaints, except as docu Neurologic: Reports system reviewed and no additional complaints, except as documented Psychiatric: Psychiatric: Reports no additional psychiatric complaints Endocrine: Endocrine: Reports no additional endocrine complaints Hematologic/Lymphatic: Hematologic/Lymphatic: Reports no additional hematologic/lymphatic complaints Allergic/Immunologic: Allergic/Immunologic: Reports no additional allergic/immunologic complaints PMFSH Past Medical History Medical History Hyperemesis gravidarum Back problem Surgical History Surgical History History of section History of salpingectomy Family History Family History Other No pertinent family history Social History Social History Smoking status: Never smoker Second hand tobacco smoke exposure: No Alcohol intake: current Alcohol use details: Socially Substance use: current Substance use type: marijuana Other substance usage details: Pt. 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 Living arrangements: with family Gender identity (if verbalized by the patient): Female Sexual Orientation (if Verbalized by the Patient): Straight or Heterosexual Spiritual care concerns: No Exam Const: General: healthy appearing Nutritional Appearance: well nourished Orientation/consciousness: patient oriented x3 Limitations: no limitations HENMT: Head: normal to inspection Ears: external ears normal Face/Nose/Sinus: Normal external nose present Eyes: Conjunctivae: conjunctivae normal Pupils: Equal, round and reactive pupils present EOM: EOMs intact bilaterally Neck: Neck: normal visual inspection Chest: Chest palpation & inspection: normal inspection of the chest Resp: Effort & Inspection: normal respiratory effort and not labored Auscultation: clear to auscultation bilaterally and no crackles Cardio: Rate: regular rate Rhythm: regular rhythm Heart sounds: no murmurs GI: Inspection: non-distended GI Palp: Yes Soft to palpation and No Tenderness to palpation present (GI) Auscultation: normal bowel sounds : General: Yes bladder normal to palpation Back/Spine/Pelvis: Back: no CVA tenderness Skin: General skin exam: normal color Rashes: no rashes Wounds: no wounds Neuro: General: patient oriented x3 Cranial nerves: Yes Nystagmus not present Speech: normal speech Gait exam (Neuro): gait abnormal Other: limping due to left knee pain Extrem: General: abnormal to inspection Other: left knee is swollen and tender to palpation on the medial and lateral collateral ligaments, maneuvers with the left knee still appear to be collateral ligament pain with effusion Psych: Mental Status: mental status grossly normal Affect: normal affect Attitude: cooperative Course Vital Signs Vital signs: Vital Signs Temperature 36.8 C 04/07/24 19:35 Pulse Rate 92 04/07/24 19:35 Respiratory Rate 18 04/07/24 19:35 Blood Pressure 152/97 H 04/07/24 19:35 Pulse Oximetry 98 04/07/24 19:35 Oxygen Delivery Room Air 04/07/24 19:35 Temperature 37.2 C 04/07/24 22:25 Pulse Rate 82 04/07/24 22:25 Respiratory Rate 18 04/07/24 22:25 Blood Pressure 153/107 H 04/07/24 22:25 Pulse Oximetry 99 04/07/24 22:25 Oxygen Delivery Room Air 04/07/24 22:25 MDM - Extremity Injury (Lower) MDM Narrative Medical decision making narrative: patient is a 43-year-old female with a back fall and landed on the left side injuring the left knee. We will do an x-ray. We will get pain control. Will likely need outpatient MRI. Imaging Data Attestation: I personally reviewed and interpreted this imaging study as follows: Radiologist's impression: Left knee x-ray shows a moderate size effusion Discharge Plan Discharge Clinical Impression: Derangement of knee Qualifiers: Laterality: left Qualified Code(s): M23.92 - Unspecified internal derangement of left knee Patient Disposition: Home, Self-Care Condition: Stable Instructions: Knee Pain (ED) Additional Instructions: Please follow-up with the primary doctor in the next week. I suggest an MRI of the left knee. Patient Language: [place] Prescriptions: New hydrocodone-acetaminophen 5-325 mg tablet 1 tablet PO Q8H PRN (Reason: pain) Qty: 20 0RF prednisone 20 mg tablet 40 mg PO DAILY 3 Days Qty: 6 0RF No Action hydrocodone-acetaminophen 5-325 mg tablet 1 tablet PO Q6H PRN (Reason: pain) Qty: 10 0RF Follow-up/Referrals: Carlos,Johanna Hylton MD [Primary Care Provider] - Time of Disposition: 23:44
[2024-04-07] MEDS: ORPHENADRINE CITRATE 30 MG/ML 2 ML VIAL 60 MG IM (23:31)
[2024-04-07] MEDS: predniSONE 20 MG TABLET 40 MG PO (23:32)
== END 2024-04-08 00:37 | disposition home or self-care (01) ==
PROVIDERS: Emergency Provider Emergency Medicine; PCP Family Medicine
DX: M23.92 Unspecified internal derangement of left knee (principal); W00.0XXA Fall on same level due to ice and snow, initial encounter; F12.90 Cannabis use, unspecified, uncomplicated
CPT/HCPCS: 73564; 96372; 99283; J2360; J7512

== ENCOUNTER 2024-11-16 08:29 | Outpatient (RCR) | payer OTHER, SELFPAY ==
--- NOTE | 2024-11-16 10:01 | OPREHPOC ---
Outpatient Therapy Plan of Care This is a Multidisciplinary Plan of Care that may contain components documented by all disciplines (PT, OT, and ST.) PT Problem 1 PT Problem #1 Knowledge Deficit PT Goal 1 Goal / Goal Update The patient will be independent in a home exercise program. Target Visit 4 PT Problem 2 PT Problem #2 Pain PT Goal 1 Goal / Goal Update The patient will report no greater than 2/10 L wrist pain with return to PLOF. Target Visit 10 PT Problem 3 PT Problem #3 Impaired Functional Mobility PT Goal 1 Goal / Goal Update The patient will demonstrate 25% or less self perceived disability per the Quick DASH questionnaire. The patient will demonstrate the ability to lift 25# from floor to waist with 2/10 or less L wrist pain. Target Visit 16 PT Problem 4 PT Problem #4 Impaired Strength PT Goal 1 Goal / Goal Update The patient will demonstrate 4/5 or greater L wrist strength. The patient will demonstrate an average of 50# or greater composite superintendent plant strength on the L. The patient will demonstrate an average of 5# or greater gan superintendent plant strength on the L. The patient will demonstrate an average of 4# or greater 3 jaw oleksandr superintendent plant strength on the L. Target Visit 16
--- NOTE | 2024-11-16 10:01 | PTOPEVAL1 ---
Assessment and note entered by Argentina Braun, PT Evaluation Information Assessment Status Evaluation Diagnosis L wrist fracture 09/15/24; s/p ORIF 09/29/24 ICD-10 Condition Codes (PT) Encounter for other orthopedic aftercare Z47.89 Other ICD-10 Condition Codes ( S62.102A PT) Onset 09/15/24 Subjective Information Elle Rayo reports she fell backwards into a firepit on 09/15/24 and landed on her left arm. She went to the ER and was told she had fractured her wrist in 3 places. She had surgery for ORIF on . She wore a brace until 11/10/24. She wore the brace all the time except showering. She continues to have pain primarily on the side on her wrist by the pinky. She notes the pain is constant and increases with putting weight on it and moving the wrist to do daily activities. She notes more weakness by the end of the day at which point she has trouble lifting even very light items. 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 She has been working while wearing the brace. Reported Pain Level Pain Score 3: Self Report Assessment PT Clinical Summary Elle Rayo is 6 weeks s/p left wrist ORIF performed on 09/29/24. She fractured her wrist on secondary to a fall on an outstretched UE. She was immobilized until 11/10/24. She continues to note pain in the ulnar side of the wrist that increases with movement and use. 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 She demonstrates decreased left wrist active ROM, decreased left wrist strength, decreased L filter filler and pinch strength, and decreased functional abilities. She will benefit from skilled PT to address these limitations. Plan of Care Interventions Electrical Stimulation,Hot Pack/Cold Pack,Manual Therapy,Neuro Re-education,Patient/Caregiver Education,Therapeutic Activities,Therapeutic Exercise PT Services Indicated Yes Treatment Frequency and 3 times a week for 10 visits then 2 times a week Duration for 6 visits to total 16 visits These treatments will address the objective and functional deficits as defined above. The patient will be advanced safely and appropriately in order for the patient to progress towards his/her prior level of function. Additional exercises will be introduced and as well as a comprehensive home exercise program upon discharge, if needed, ?to ensure carryover of functional gains achieved in the clinic. This treatment plan has been reviewed and agreement upon by the patient.
== END 2025-02-14 23:59 | disposition home or self-care (01) ==
LOC: CHSPT 08:29
DX: S62.102A Fracture of unspecified carpal bone, left wrist, initial encounter for closed fracture (principal); Z47.89 Encounter for other orthopedic aftercare
CPT/HCPCS: 97110; 97161